=== PATIENT | female | born 1960 | race Caucasian/White ===

== ENCOUNTER 2017-04-10 00:16 | Emergency (ER) | payer OTHER ==
[2017-04-10] MEDS ORDERED: Ondansetron 4 MG/2 ML SDV IVPUSH ONE (00:37)
[2017-04-10] MEDS ORDERED: Famotidine 20 MG/2 ML SDV IVPUSH ONE (00:37)
[2017-04-10] MEDS ORDERED: Lactated Ringers 1,000 ML IV ONE (00:37)
[2017-04-10] MEDS ORDERED: Sodium Chloride 0.9% 10 ML Syringe FLUSH PRN (00:37)
--- NOTE | 2017-04-10 00:37 | EDM.PDOC ---
ED HPI GENERAL MEDICAL PROBLEM - General Chief Complaint: General Stated Complaint: LLQ pain Time Seen by Provider: 04/10/17 00:30 Source of Information: Reports: Patient, Family (), Old Records ([facility] chart/EMR) History Limitations: Reports: No Limitations - History of Present Illness INITIAL COMMENTS - FREE TEXT/NARRATIVE: The patient was brought to the emergency room via private automobile for evaluation of severe left-sided colic type tenderness particularly in the CVA area radiating to the left lower quadrant typical of her previous attacks. She rates her discomfort at 10/10 with some additional nausea without emesis since onset of her symptoms at about 21:30 hours this evening. She has had some mild urinary frequency and dysuria, however no gross hematuria. The patient did take 400 mg of ibuprofen at 23:00 hours. No recent history of other abdominal pain, heartburn, diarrhea, melena, gross hematochezia, or any food intolerance, including fatty foods, etc. with normal bowel movement yesterday. The patient denies any chest pain/pressure, heart flutter, dizziness, orthostasis, orthopnea , diaphoresis, paresthesias, recent decreased exercise tolerance, or any other anginal-type symptoms. The patient also denies any recent fever, cough, wheezing , dyspnea, etc.. Onset: Today, Sudden Onset Date: 04/09/17 Onset Time: 21:30 Duration: Colic, Constant, Getting Worse Location: Reports: Abdomen, Back, Radiates to (As above). Denies: Head, Neck, Chest, Upper Extremity, Left, Upper Extremity, Right, Lower Extremity, Left, Lower Extremity, Right Quality: Reports: Same as Previous Episode, Sharp, Stabbing Severity: Severe Improves with: Reports: None Worsens with: Reports: None Context: Reports: Other (As above) Associated Symptoms: Reports: Nausea/Vomiting. Denies: Confusion, Chest Pain, Cough, cough w sputum, Diaphoresis, Fever/Chills, Malaise, Rash, Seizure, Shortness of Breath, Syncope Treatments MAJOR GENERAL: Reports: NSAIDS Left Lower Abdominal Pain Score (Numeric/FACES): 10 - Related Data Allergies Allergy/AdvReac Type Severity Reaction Status Date / Time acetaminophen Allergy Cannot Verified 04/10/17 00:28 [From Tylenol Sinus Remember Congestion Pain] chlorpheniramine Allergy Cannot Verified 04/10/17 00:28 [From Tylenol Sinus Remember Congestion Pain] codeine Allergy Itching Verified 12/23/15 10:59 dextrose [From Metamucil] Allergy Difficulty Verified 12/27/15 08:26 Breathing, swelling around eyes diphenhydramine HCl Allergy Hyperactivi Verified 12/27/15 08:26 [From Benadryl] ty estrogens, conjugated Allergy Hives Verified 12/27/15 08:26 [From Premarin] estropipate [From Ogen 2.5] Allergy Hives Verified 12/27/15 08:26 guaifenesin Allergy Cannot Verified 04/10/17 00:28 [From Tylenol Sinus Remember Congestion Pain] hydrochlorothiazide Allergy tongue Verified 12/27/15 08:26 swelling hydrocodone Allergy Headache Verified 12/23/15 10:59 influenza virus vaccine, Allergy rash, Verified 12/27/15 08:26 specific difficulty [Influenza Virus breathing Vacc,Specific] loratadine [From Claritin] Allergy Other Verified 12/23/15 10:59 morphine Allergy Confusion, Verified 12/27/15 08:26 itching, difficulty breathing oxycodone Allergy Cannot Verified 04/10/17 00:28 Remember phenylephrine Allergy Cannot Verified 04/10/17 00:28 [From Tylenol Sinus Remember Congestion Pain] psyllium husk Allergy swelling Verified 12/27/15 08:26 [From Metamucil] around eyes, difficulty breathing psyllium seed Allergy swelling Verified 12/27/15 08:26 [From Metamucil] around eyes, dfiiculty breathing sucrose [From Metamucil] Allergy swelling Verified 12/27/15 08:26 around eyes, difficulty breathing temazepam [Temazepam] Allergy Hyperactivi Verified 12/27/15 08:26 ty tramadol HCl [From Ultram] Allergy Confusion Verified 12/23/15 10:59 vitamin E (d-alpha Allergy Difficulty Verified 12/27/15 08:26 tocopherol) Breathing [vitamin E] bandaids Allergy Rash Uncoded 08/14/14 10:15 Home Meds: Home Meds Cholecalciferol (Vitamin D3) [Vitamin D3] 5,000 unit PO DAILY 08/14/14 [History] Hydroxychloroquine [Plaquenil] 400 mg PO DAILY 08/14/14 [History] LORazepam [Ativan] 0.5 mg PO DAILY PRN 08/14/14 [History] LORazepam [Ativan] 2 mg PO BEDTIME 08/14/14 [History] Lactobacillus Combo No.10 [Probiotic] 1 cap PO DAILY 08/14/14 [History] Lisinopril [Prinivil] 20 mg PO BID 08/14/14 [History] Metoprolol Tartrate [Lopressor] 50 mg PO BID 08/14/14 [History] Nortriptyline HCl 40 mg PO BEDTIME 08/14/14 [History] Omeprazole 20 mg PO DAILY 08/14/14 [History] amLODIPine Besylate [Amlodipine Besylate] 5 mg PO BID 08/14/14 [History] traZODone HCl [Trazodone HCl] 50 mg PO BEDTIME 08/14/14 [History] Hydroxychloroquine [Plaquenil] 200 mg PO BEDTIME 04/10/17 [History] Pentazocine HCl/Naloxone HCl [Pentazocine-Naloxone Tablet] 1 each PO Q4H PRN [History] Past Medical History HEENT History: Reports: Impaired Vision, Sinusitis, Other (See Below). Denies: Allergic Rhinitis, Cataract, Glaucoma, Hard of Hearing, Macular Degeneration, Retinal Detachment Other HEENT History: Chronic intermittent sinusitis, patient wears glasses Cardiovascular History: Reports: Hypertension, Other (See Below). Denies: Afib , Aneurysm, Arrhythmia, Blood Clots/VTE/DVT, CAD, Heart Failure, Heart Murmur, High Cholesterol, IA, PVD, Syncope Other Cardiovascular History: Hypertension with probable mild borderline hypertensive cardiomegaly by x-ray, history of fatty liver with patient unaware of her cholesterol status Respiratory History: Reports: Bronchitis, Recurrent, Intubation, Previous, Pneumonia, Recurrent, Pulmonary Fibrosis, Other (See Below). Denies: Asthma, COPD, Intubation, Difficult, PE, Pneumothorax, Sleep Apnea, TB Other Respiratory History: Pulmonary fibrosis by chest x-ray, benign right lower lobe pulmonary nodule diagnosed on 07/21/09 with multiple negative follow- up CT scans as below Gastrointestinal History: Reports: Cholelithiasis, Gastritis, GERD, Hemorrhoids , Hiatal Hernia, PUD, Other (See Below). Denies: Celiac Disease, Chronic Constipation, Chronic Diarrhea, Colon Polyp, Diverticulosis, Fecal Incontinence , GI Bleed, Hepatitis, Inflammatory Bowel Disease, Irritable Bowel Syndrome, Jaundice, Pancreatitis Other Gastrointestinal History: Gastric ulcer in her 20s Genitourinary History: Reports: Renal Calculus, UTI, Recurrent, Other (See Below ). Denies: Acute Renal Failure, Chronic Renal Insuffiency, Dialysis, STD, Urinary Incontinence Other Genitourinary History: History of recurrent urolithiasis with bilateral nephrolithiasis by CT scans with initial episode in 2003, last colic attack secondary to 3 mm right-sided urolithiasis with mild hydronephrosis on 08/14/14 [employer] History: Reports: Dysfunctional Uterine Bleeding, Endometriosis, Fibroids , , Spontaneous : 3 Para: 2 (SAB during first trimester not requiring any procedures, otherwiseFull term without complications during pregnancies or deliveries) LMP (Approximate): Menopausal (Surgical menopause as below) Musculoskeletal History: Reports: Arthritis, Back Pain, Chronic, Neck Pain, Chronic, Osteoarthritis, Other (See Below). Denies: Amputation, Fracture, Gout , RA, SLE Other Musculoskeletal History: Sjogren's syndrome, right foot fracture in about 2003 Neurological History: Reports: Headaches, Chronic, Migraines. Denies: Cerebral Aneurysms, Concussion, CVA, Head Trauma, MS, Neuropathy, Peripheral, Parkinson's , Reflex Sympathetic Dystrophy, Seizure, TIA Psychiatric History: Reports: Anxiety, Depression. Denies: Abuse, Victim of, ADD, ADHD, Addiction, Psych Hospitalization(s), PTSD, Suicide Attempt, Suicidal Ideation Endocrine/Metabolic History: Reports: Multinodular Thyroid, Other (See Below). Denies: Diabetes, Type I, Diabetes, Type II, Hypothyroidism, IDDM Other Endocrine/Metabolic History: bilateral thyroid nodules Hematologic History: Reports: None. Denies: Anemia, Blood Transfusion(s), Iron Deficiency Immunologic History: Reports: Other (See Below). Denies: AIDS, HIV, Immunosuppression, SLE Other Immunologic History: Sjogren's syndrome Oncologic (Cancer) History: Denies: Basal Cell Carcinoma, Cervix, Hodgkin's Lymphoma, Leukemia, Lymphoma, Malignant Melanoma, Non-Hodgkin's Lymphoma, Ovarian, Squamous Cell Carcinoma, Uterine Dermatologic History: Reports: Angiodema, Other (See Below). Denies: Eczema, Psoriasis Other Dermatologic History: Neck denies skin, history of chronic intermittent idiopathic angioedema - Infectious Disease History Infectious Disease History: Reports: None. Denies: C-Difficile, Chicken Pox, Helicobacter Pylori, Measles, Meningitis, Mononucleosis, MRSA, Mumps, Pertussis (Whooping Cough), Rheumatic Fever, RSV, Rubella, Scarlet Fever, Shingles, TB, VRE - Past Surgical History Head Surgeries/Procedures: Reports: None HEENT Surgical History: Reports: Oral Surgery, Other (See Below). Denies: Adenoidectomy, Cataract Surgery, Eye Surgery, Laser Surgery, LASIK, Myringotomy w Tube(s), Naso-Sinus Surgery, Tonsillectomy Other HEENT Surgeries/Procedures: [place] teeth extraction 4 in her 30s Cardiovascular Surgical History: Reports: None. Denies: Varicose Respiratory Surgical History: Reports: None. Denies: Lung Biopsies, Thoracentesis GI Surgical History: Reports: Appendectomy, Colonoscopy, EGD, Other (See Below) . Denies: Cholecystectomy, Hernia, Abdominal, Hernia, Inguinal, Hernia Repair/ Other, Polypectomy Other GI Surgeries/Procedures: Concomitant appendectomy with her hysterectomy as below in 1997, EGD in her 20s, last colonoscopy on 10/05/10 with previous evaluation on 08/01/06, laparoscopic abdominal exploratory procedure on 04/10/04 Female Surgical History: Reports: Breast Biopsy, Cystoscopy, Hysterectomy, Salpingo-Oophorectomy, Tubal Ligation, Other (See Below). Denies: Section, Cervical Conization, D&C, Kidney stone extraction, LEEP, Lithotripsy/ ESWL Other Female Surgeries/Procedures: Excision of benign milk ducts/papilloma from the left breast in her 30s, complete hysterectomy with bilateral salpingo- oophorectomy in 1997 secondary to uterine fibroids and dysfunctional uterine bleeding, bilateral tubal ligation in 1983, cystoscopy with basket procedure with no stones found on 11/22/03 Endocrine Surgical History: Reports: None. Denies: Thyroid Biopsy Neurological Surgical History: Reports: None. Denies: C-Spine, Laminectomy, Lumbar Spine, Sacral Spine, Vertebroplasty Musculoskeletal Surgical History: Reports: None. Denies: Arthroscopic Knee, Arthroscopic Procedure, Carpal Tunnel, Ganglion Cyst, Joint Replacement, ORIF, Shoulder Surgery Oncologic Surgical History: Reports: None Dermatological Surgical History: Reports: Other (See Below) Other Dermatological Surgeries/Procedures: Excision of benign venous thrombus from the right cervical region at about age 9 - Past Imaging History Past Imaging History: Reports: CAT Scan (Multiple CTs of the chest both with and without IV contrast with last evaluation with IV contrast on 09/28/13 and initial evaluation on 07/21/09, last CT scan of the abdomen and pelvis with IV contrast on 08/14/[address] scan of the abdomen and pelvis on 08/30/06 , CT of the sinuses on 03/31/12, CT of the neck with soft tissue procedure and concomitant maxillofacial CT scan on 06/28/10), Mammogram (Last mammogram on 10/08), Stress Testing (Negative Cardiolite stress test on 10/25/06 with ejection fraction of 59%), Ultrasound (Thyroid ultrasound on 03/23/13 and 10/06/12, right thigh soft tissue ultrasound on 07/10/11, right upper quadrant abdominal ultrasound on 07/14/09, abdominal ultrasound on 08/26/06), Upper GI X-Ray/Series ( Including small bowel series on 08/26/06) Social & Family History - Family History HEENT: Reports: Macular Degeneration, Other (See Below) Other HEENT Family History: Maternal grandmother with macular degeneration Cardiac: Reports: Bypass, CAD, High Cholesterol, Hypertension, IA, Other (See Below) Other Cardiac Family History: Father with history of IA in his 60s with CABG 4 , hypertension in mother, sister, and maternal grandmother, paternal uncles 6 with MIs and CABGs in her 60s, father and paternal uncles of hyperlipidemia as above Respiratory: Reports: COPD, Other (See Below) Other Respiratory Family Hisory: Paternal aunts 6 with COPD Musculoskeletal: Reports: SLE, Other (See Below) Other Musculoskeletal Family History: Sister with SLE Endocrine/Metabolic: Reports: Diabetes, Type I, Diabetes, type II, Hyperthyroidism, Hypothyroidism, IDDM, Other (See Below) Other Endocrine/Metabolic Family History: Sister with juvenile IDDM, father with hyperthyroidism, maternal grandmother with hypothyroidism and goiter, paternal aunt 1 with IDDM, 2 other paternal aunts with AODM Oncologic: Reports: Colon, Other (See Below) Other Oncologic Family History: Mother with history of colon cancer at age 50, father with fatal small cell lung cancer at age 63 with history of tobacco use and history of asbestos exposure - Tobacco Use Smoking Status *Q: Never Smoker Smoking Cessation Information Provided To Patient: No Second Hand Smoke Exposure: No Second Hand Smoke Education Provided: No - Caffeine Use Caffeine Use: Reports: Soda (1 soda per week and). Denies: Coffee, Energy Drinks, Tea - Alcohol Use Alcohol Use History: Yes Days Per Week of Alcohol Use: 0 (No previous DWIs, problems with alcohol abuse, etc.) Number of Drinks Per Day: 2 (Usually only about 3 times per year) Total Drinks Per Week: 0 Alcohol Use in Last Twelve Months: Yes Alcohol Use Frequency: Socially - Recreational Drug Use Recreational Drug Use: No Drug Use in Last 12 Months: No Recreational Drug Type: Denies: Amphetamines (Speed), Cocaine, Heroin, Inhalants (Glues, Solvents, Aerosols), LSD (Acid), Marijuana/Hashish, Methamphetamine - Living Situation & Occupation Living situation: Reports: (1979, 2 children), with Family (With ) 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 Denies: Fever, Chills, Weakness, Fatigue , Night Sweats, Diaphoresis, Weight Loss HEENT: Reports: Glasses. Denies: Dental Pain, Ear Pain, Eye Pain, Rhinitis, Throat Pain, Vertigo, Vision Change Respiratory: Reports: No Symptoms. Denies: Shortness of Breath, Wheezing, Pleuritic Chest Pain, Cough Cardiovascular: Reports: No Symptoms. Denies: Chest Pain, Blood Pressure Problem, Dyspnea on Exertion, Edema, Lightheadedness, Orthopnea, Palpitations, Syncope Endocrine: Reports: No Symptoms. Denies: Fatigue GI/Abdominal: Reports: Abdominal Pain, Nausea. Denies: Anorexia, Black Stool, Bloody Stool, Constipation, Diarrhea, Decreased Appetite, Difficulty Swallowing , Distension, Flatus, Hematemesis, Hematochezia, Melena, Mucous in Stool, Stool Incontinence, Vomiting : Reports: Dysuria, Flank Pain, Frequency, Urgency. Denies: Hematuria, Incontinence, Pain, Urinary Retention Musculoskeletal: Reports: No Symptoms. Denies: Neck Pain, Shoulder Pain, Arm Pain, Back Pain (Other than CVA region), Hand Pain, Leg Pain Skin: Reports: No Symptoms. Denies: Jaundice, Pallor, Diaphoresis, Wound Neurological: Reports: No Symptoms. Denies: Confusion, Dizziness, Headache, Numbness, Paresthesia, Seizure, Tingling, Weakness Psychiatric: Reports: No Symptoms. Denies: Agitation, Anxiety, Confusion, Depression, Hallucinations, Suicidal Ideation Hematologic/Lymphatic: Reports: No Symptoms Immunologic: Reports: No Symptoms ED EXAM, GENERAL - Physical Exam Exam: See Below Exam Limited By: No Limitations General Appearance: Alert, WD/WN, Anxious, Mild Distress (Secondary to colic) Eye Exam: Bilateral Eye: EOMI, Normal Inspection (No nystagmus), PERRL Ears: Normal External Exam, Normal Canal, Hearing Grossly Normal, Normal TMs Nose: Normal Inspection, Normal Mucosa, No Blood Throat/Mouth: Normal Inspection, Normal Lips, Normal Teeth, Normal Gums, Normal Oropharynx, Normal Voice, No Airway Compromise. No: Dysphagia, Perioral Cyanosis Head: Atraumatic, Normocephalic. No: Facial Swelling, Facial Tenderness, Sinus Tenderness Neck: Normal Inspection, Supple, Non-Tender, Full Range of Motion. No: Lymphadenopathy (L), Lymphadenopathy (R), Thyromegaly Respiratory/Chest: No Respiratory Distress, Lungs Clear, Normal Breath Sounds, No Accessory Muscle Use, Chest Non-Tender. No: Stridor, Retractions Cardiovascular: Normal Peripheral Pulses, Regular Rate, Rhythm, No Edema, No Gallop, No JVD, No Murmur, No Rub. No: Gallop/S3, Gallop/S4, Friction Rub Peripheral Pulses: 2+: Radial (L), Radial (R), Dorsalis Pedis (L), Dorsalis Pedis (R) GI/Abdominal: Normal Bowel Sounds, No Organomegaly, No Distention, No Abnormal Bruit, No Mass, Pelvis Stable, Tender (Mild left CVA), Other (Obese). No: Guarding, Rebound (Female) Exam: Deferred Rectal (Female) Exam: Deferred Back Exam: Full Range of Motion, CVA Tenderness (L) (Borderline as above). No: CVA Tenderness (R), Muscle Spasm Extremities: Normal Inspection, Normal Range of Motion, Non-Tender, No Pedal Edema, Normal Capillary Refill. No: Ignacio's Sign Neurological: Alert, Oriented, CN II-XII Intact, Normal Cognition, Normal Gait, Normal Reflexes (Negative Babinski's), No Motor/Sensory Deficits Psychiatric: Normal Affect, Normal Mood Skin Exam: Warm, Dry, Intact, Normal Color, No Rash. No: Diaphoretic, Wound/ Incision Course - Vital Signs Last Recorded V/S: Last Vital Signs Temp 36.5 C 04/10/17 01:14 Pulse 90 04/10/17 01:45 Resp 16 04/10/17 01:45 BP 118/72 04/10/17 01:45 Pulse Ox 94 L 04/10/17 01:45 Vital Signs - 24 hr 04/10/17 04/10/17 04/10/17 00:17 01:14 01:45 Temperature [ 36.5 C 36.5 C Oral] Pulse, 92 88 90 Peripheral [ Right Pulse Oximetry] Respiratory 20 20 16 Rate Blood Pressure 137/91 H 122/78 118/72 [Left Upper Arm ] O2 Sat by Pulse 100 95 94 L Oximetry - Orders/Labs/Meds Orders: Active Orders 24 hr Category Date Time Status Peripheral IV Care [RC] . DIRECTED Care 04/10/17 00:37 Active Nothing Per Oral Diet [DIET] Diet 04/10/17 Breakfast Active Abdomen Pelvis wo Cont [CT] Stat Exams 04/10/17 00:43 Ordered CULTURE URINE [RM] Stat Lab 04/10/17 00:37 Uncollected Sodium Chloride 0.9% [Saline Flush] Med 04/10/17 00:37 Active 10 ml FLUSH ASDIRECTED PRN Obtain Past Medical Record [OM.PC] Urgent Oth 04/10/17 00:37 Active Peripheral IV Insertion Adult [OM.PC] Stat Oth 04/10/17 00:37 Ordered Resuscitation Status Stat Resus Stat 04/10/17 00:37 Ordered Medication Orders Sodium Chloride (Saline Flush) 10 ml FLUSH ASDIRECTED PRN PRN Reason: Keep Vein Open Labs: Laboratory Tests 04/10/17 04/10/17 04/10/17 Range/Units 00:50 00:55 00:55 WBC 9.9 (4.0-10.2) K/uL RBC 4.42 (3.77-5.09) M/uL Hgb 13.6 (11.7-15.5) g/dL Hct 39.8 (34.0-46.0) % MCV 90.0 D (84.0-98.0) fL MCH 30.8 (28.2-33.3) pg MCHC 34.2 (31.7-36.0) g/dL RDW 12.3 (11.2-14.1) % Plt Count 229 (150-350) K/uL Neut % (Auto) 77.0 (45.0-80.0) % Lymph % (Auto) 13.2 (10.0-50.0) % [place] % (Auto) 7.6 (2.0-14.0) % Eos % (Auto) 1.7 (0.0-5.0) % Baso % (Auto) 0.5 (0.0-2.0) % Neut # (Auto) 7.65 H (1.40-7.00) K/uL Lymph # (Auto) 1.31 (0.50-3.50) K/uL [place] # (Auto) 0.75 (0.00-1.00) K/uL Eos # (Auto) 0.17 (0.00-0.50) K/uL Baso # (Auto) 0.05 (0.00-0.20) K/uL PT (9.8-11.7) SEC INR APTT (23.5-30.0) SEC Sodium (136-145) mmol/L Potassium (3.5-5.1) mmol/L Chloride (98-107) mmol/L Carbon Dioxide (21.0-32.0) mmol/L BUN (7-18) mg/dL Creatinine (0.51-1.17) mg/dL Est Cr Clr Drug Dosing Estimated GFR (MDRD) mL/min Glucose (74-106) mg/dL Lactic Acid (0.4-2.0) mmol/L Uric Acid (2.6-7.2) mg/dL Calcium (8.5-10.1) mg/dL Magnesium (1.8-2.4) mg/dL Total Bilirubin (0.2-1.0) mg/dL AST (15-37) U/L ALT (12-78) U/L Alkaline Phosphatase (46-116) IU/L Total Protein (6.4-8.2) g/dL Albumin (3.4-5.0) g/dL Amylase 42 (25-115) U/L Lipase (73-393) U/L Specimen Type Urincc Urine Color Yellow Urine Appearance Clear Urine pH 5.5 (5.0-9.0) Ur Specific [place] >= 1.030 (1.005-1.030) Urine Protein Negative (NEGATIVE) mg/dL Urine Glucose (UA) Negative (NEGATIVE) mg/dL Urine Ketones Negative (NEGATIVE) mg/dL Urine Occult Blood Moderate H (NEGATIVE) Urine Nitrite Negative (NEGATIVE) Urine Bilirubin Negative (NEGATIVE) Urine Urobilinogen 0.2 (0.2-1.0) E.U./dL Ur Leukocyte Esterase Trace H (NEGATIVE) Urine RBC 40-50 H /HPF Urine WBC 0-5 /HPF Ur Epithelial Cells Few /LPF Urine Bacteria Few (NONE TO FEW) /HPF 04/10/17 04/10/17 04/10/17 Range/Units 00:55 00:55 00:55 WBC (4.0-10.2) K/uL RBC (3.77-5.09) M/uL Hgb (11.7-15.5) g/dL Hct (34.0-46.0) % MCV (84.0-98.0) fL MCH (28.2-33.3) pg MCHC (31.7-36.0) g/dL RDW (11.2-14.1) % Plt Count (150-350) K/uL Neut % (Auto) (45.0-80.0) % Lymph % (Auto) (10.0-50.0) % [place] % (Auto) (2.0-14.0) % Eos % (Auto) (0.0-5.0) % Baso % (Auto) (0.0-2.0) % Neut # (Auto) (1.40-7.00) K/uL Lymph # (Auto) (0.50-3.50) K/uL [place] # (Auto) (0.00-1.00) K/uL Eos # (Auto) (0.00-0.50) K/uL Baso # (Auto) (0.00-0.20) K/uL PT 10.6 (9.8-11.7) SEC INR 1.0 APTT 22.6 L (23.5-30.0) SEC Sodium 137 (136-145) mmol/L Potassium 3.8 (3.5-5.1) mmol/L Chloride 100 (98-107) mmol/L Carbon Dioxide 28.9 (21.0-32.0) mmol/L BUN 22 H (7-18) mg/dL Creatinine 1.30 H (0.51-1.17) mg/dL Est Cr Clr Drug Dosing TNP Estimated GFR (MDRD) 42 mL/min Glucose 123 H (74-106) mg/dL Lactic Acid 0.8 (0.4-2.0) mmol/L Uric Acid 5.6 (2.6-7.2) mg/dL Calcium 9.3 (8.5-10.1) mg/dL Magnesium 1.5 L (1.8-2.4) mg/dL Total Bilirubin 0.4 (0.2-1.0) mg/dL AST 24 (15-37) U/L ALT 32 (12-78) U/L Alkaline Phosphatase 77 (46-116) IU/L Total Protein 7.2 (6.4-8.2) g/dL Albumin 4.1 (3.4-5.0) g/dL Amylase (25-115) U/L Lipase 133 (73-393) U/L Specimen Type Urine Color Urine Appearance Urine pH (5.0-9.0) Ur Specific [place] (1.005-1.030) Urine Protein (NEGATIVE) mg/dL Urine Glucose (UA) (NEGATIVE) mg/dL Urine Ketones (NEGATIVE) mg/dL Urine Occult Blood (NEGATIVE) Urine Nitrite (NEGATIVE) Urine Bilirubin (NEGATIVE) Urine Urobilinogen (0.2-1.0) E.U./dL Ur Leukocyte Esterase (NEGATIVE) Urine RBC /HPF Urine WBC /HPF Ur Epithelial Cells /LPF Urine Bacteria (NONE TO FEW) /HPF Urine specimen set up for culture and sensitivity Meds: Medications Generic Name Dose Route Start Last Admin Trade Name Freq PRN Reason Stop Dose Admin Sodium Chloride 10 ml 04/10/17 00:37 Saline Flush FLUSH ASDIRECTED PRN Keep Vein Open Discontinued Medications Generic Name Dose Route Start Last Admin Trade Name Freq PRN Reason Stop Dose Admin Famotidine 40 mg 04/10/17 00:37 04/10/17 00:59 Pepcid IVPUSH 04/10/17 00:38 40 mg ONETIME ONE Administration Hydromorphone HCl 1 mg 04/10/17 00:40 04/10/17 00:53 Dilaudid IVPUSH 04/10/17 00:41 1 mg ONETIME ONE Administration Lactated Ringer's 1,000 mls @ 999 mls/hr 04/10/17 00:37 04/10/17 00:48 Ringers, Lactated IV 04/10/17 01:37 999 mls/hr .BOLUS ONE Administration Ketorolac Tromethamine 15 mg 04/10/17 00:40 04/10/17 00:46 Toradol IVPUSH 04/10/17 00:41 15 mg ONETIME ONE Administration Ondansetron HCl 4 mg 04/10/17 00:37 04/10/17 00:52 Zofran IVPUSH 04/10/17 00:38 4 mg ONETIME ONE Administration Tamsulosin HCl 0.4 mg 04/10/17 00:40 04/10/17 00:46 Flomax PO 04/10/17 00:41 0.4 mg ONETIME ONE Administration - Radiology Interpretation Free Text/Narrative:: Telephone consultation at 01:28 hours with the radiology department at [facility] with preliminary verbal report of CT scan of the abdomen and pelvis without contrast using stone protocol. Relatively stable moderate bilateral nephrolithiasis in the renal pelvis with 5.2 mm in diameter calcification just below the right renal pelvis with some mild to moderate secondary hydronephrosis. Additional 5 mm in diameter calcification in the distal UVJ with secondary moderate to severe hydronephrosis CT Results Date: 04/10/17 CT Results Time: 01:28 Departure - Departure Time of Disposition: 02:15 Disposition: Home, Self-Care 01 Condition: Good Clinical Impression: Urolithiasis, Nephrolithiasis, Hypertension, Renal insufficiency, Hypomagnesemia, Peptic reflux disease, Fatty liver, Osteoarthritis, Sjogrens syndrome - Discharge Information Instructions: Kidney Stones, [id number], Renal Colic, [id number] Referrals: Sheets-Elena Cohen MD [Primary Care Provider] - Forms: ED Department Discharge, Return to Work/School Form Additional Instructions: 1. Followup with your regular provider in 7 days as directed for reevaluation and recommended CBC, basic metabolic panel, magnesium level, lipid panel, and glycosylated hemoglobin. Schedule mammogram and yearly exam JONNA at that time 2. Tylenol 650 mg by mouth every 4 hours and/or OTC ibuprofen 2-3 tabs by mouth every 6 hours with food as directed./needed. Next dose of ibuprofen in the next 5 hours secondary to medications given in the emergency room 3. Urine tests should be repeated at follow up visit with possible repeat urine culture,etc. at that time. Today's urine culture is pending with results in about 2-3 days. We will call you, if we need to change your therapy. 4. Strain all urine and bring stone to your regular provider or this facility as directed for further stone analysis. 5. Consider referral to qa tester secondary to bilateral nephrolithiasis and current hypomagnesemia - Problem List & Annotations (1) Urolithiasis SNOMED Code(s): 050007684, 247327513 Code(s): N20.9 - URINARY CALCULUS, UNSPECIFIED Status: Acute Priority: High Current Visit: Yes Onset Date: 04/09/17 Annotation/Comment:: Acute left-sided colic attack today with patient about ready to pass her stone with CT scan results as above. Continue to strain urine with stone analysis as per discharge instructions. Note threatening possible additional right-sided hydronephrosis by CT scan, however asymptomatic at this time. Consider renal ultrasound at follow-up depending on her clinical course with nephrology referral also advisable. Patient is symptom-free at time of discharge. Work excuse completed after patient left facility, which she may pick up man later Qualifiers: Urinary calculus location: lower urinary tract Qualified Code(s): N21.9 - Calculus of lower urinary tract, unspecified; N21 - Calculus of lower urinary tract (2) Nephrolithiasis SNOMED Code(s): 45585169 Code(s): N20.0 - CALCULUS OF KIDNEY Status: Chronic Priority: High Current Visit: Yes Annotation/Comment:: Chronic bilateral nephrolithiasis with current acute colic today as above (3) Renal insufficiency SNOMED Code(s): 632759447, 596287540 Code(s): N28.9 - DISORDER OF KIDNEY AND URETER, UNSPECIFIED Status: Acute Priority: Medium Current Visit: Yes Onset Date: 04/10/17 Annotation/ Comment:: Mild newly diagnosed renal insufficiency. Close follow-up by regular provider (4) Fatty liver SNOMED Code(s): 081758262 Code(s): K76.0 - FATTY (CHANGE OF) LIVER, NOT ELSEWHERE CLASSIFIED Status: Chronic Priority: Medium Current Visit: Yes Annotation/Comment:: History of fatty liver both by ultrasound and CT scans. Patient does not know her cholesterol status with lipid panel JONNA advised as per discharge instructions. Strict compliance with low-fat, low-cholesterol diet also encouraged (5) Hypertension SNOMED Code(s): 68643577 Code(s): I10 - ESSENTIAL (PRIMARY) HYPERTENSION Status: Chronic Priority : Medium Current Visit: Yes Annotation/Comment:: Stable in the emergency room and by history Qualifiers: Hypertension type: essential hypertension Qualified Code(s): I10 - Essential (primary) hypertension (6) Hypomagnesemia SNOMED Code(s): 166965457 Code(s): E83.42 - HYPOMAGNESEMIA Status: Acute Priority: Medium Current Visit: Yes Onset Date: 04/10/17 Annotation/Comment:: Delay magnesium supplementation for now secondary to her recurrent urolithiasis. Close follow-up by her regular providers with stone evaluation, nephrology consultation, etc. advisable (7) Osteoarthritis SNOMED Code(s): 992444483 Code(s): M19.90 - UNSPECIFIED OSTEOARTHRITIS, UNSPECIFIED SITE Status: Chronic Priority: Medium Current Visit: Yes Annotation/Comment:: Stable by history Qualifiers: Osteoarthritis location: multiple joints Osteoarthritis type: primary Qualified Code(s): M15.0 - Primary generalized (osteo)arthritis (8) Peptic reflux disease SNOMED Code(s): 26229445 Code(s): K21.9 - GASTRO-ESOPHAGEAL REFLUX DISEASE WITHOUT ESOPHAGITIS Status: Chronic Priority: Medium Current Visit: Yes Annotation/Comment:: Stable by history with high-dose IV Pepcid given in the emergency room secondary to medications (9) Sjogrens syndrome SNOMED Code(s): 64717078 Code(s): M35.00 - SICCA SYNDROME, UNSPECIFIED Status: Chronic Priority: Medium Current Visit: Yes Annotation/Comment:: Stable by history Qualifiers: Sjogren's organ involvement: unspecified organ involvement Qualified Code(s ): M35.00 - Sicca syndrome, unspecified - Problem List Review Problem List Initiated/Reviewed/Updated: Yes - My Orders Last 24 Hours: My Active Orders 04/10/17 00:37 Peripheral IV Care [RC] . DIRECTED CULTURE URINE [RM] Stat Sodium Chloride 0.9% [Saline Flush] 10 ml FLUSH ASDIRECTED PRN Obtain Past Medical Record [OM.PC] Urgent Peripheral IV Insertion Adult [OM.PC] Stat Resuscitation Status Stat 04/10/17 00:43 Abdomen Pelvis wo Cont [CT] Stat 04/10/17 Breakfast Nothing Per Oral Diet [DIET] - Assessment/Plan Last 24 Hours: My Active Orders 04/10/17 00:37 Peripheral IV Care [RC] . DIRECTED CULTURE URINE [RM] Stat Sodium Chloride 0.9% [Saline Flush] 10 ml FLUSH ASDIRECTED PRN Obtain Past Medical Record [OM.PC] Urgent Peripheral IV Insertion Adult [OM.PC] Stat Resuscitation Status Stat 04/10/17 00:43 Abdomen Pelvis wo Cont [CT] Stat 04/10/17 Breakfast Nothing Per Oral Diet [DIET] Assessment:: As above Plan: As above. Extensive precautions were given to the patient and her , who are in agreement with the treatment plan. See Patient Instructions for further treatment and plan.
[2017-04-10] MEDS ORDERED: Tamsulosin 0.4 MG Cap.ER PO ONE (00:40)
[2017-04-10] MEDS ORDERED: Ketorolac 15 MG/ML SDV IVPUSH ONE (00:40)
[2017-04-10] MEDS ORDERED: HYDROmorphone 1 MG/ML Syringe IVPUSH ONE (00:40)
[2017-04-10 01:19] LABS: CHLORIDE,CL 100 mmol/L (98-107); SODIUM,NA 137 mmol/L (136-145)
[2017-04-10 01:46] VITALS: BP 118/72
== END 2017-04-10 02:15 | disposition home or self-care (01) ==
LOC: LL.ED 00:16
DX: N13.2 Hydronephrosis with renal and ureteral calculous obstruction (principal); N20.9 Urinary calculus, unspecified; I13.0 Hypertensive heart and chronic kidney disease with heart failure and stage 1 through stage 4 chronic kidney disease, or unspecified chronic kidney disease; N18.9 Chronic kidney disease, unspecified; I50.9 Heart failure, unspecified; K21.9 Gastro-esophageal reflux disease without esophagitis; M19.90 Unspecified osteoarthritis, unspecified site; E83.42 Hypomagnesemia; K76.0 Fatty (change of) liver, not elsewhere classified; M35.00 Sjogren syndrome, unspecified; G43.909 Migraine, unspecified, not intractable, without status migrainosus; Z98.890 Other specified postprocedural states; Z79.899 Other long term (current) drug therapy; Z88.8 Allergy status to other drugs, medicaments and biological substances; Z88.6 Allergy status to analgesic agent; Z88.5 Allergy status to narcotic agent
CPT/HCPCS: 36415; 74176; 80053; 81001; 82150; 83605; 83690; 83735; 84550; 85025; 85610; 85730; 87086; 96365; 96375; 99285; A9270; J1170; J1885; J2405; J7120; 99284; S0028

== ENCOUNTER 2017-09-12 02:24 | Inpatient (IN) | payer OTHER ==
--- NOTE | 2017-09-12 02:35 | EDM.PDOC ---
ED HPI GENERAL MEDICAL PROBLEM - General Chief Complaint: Abdominal Pain Stated Complaint: right lower abdominal pain Time Seen by Provider: 09/12/17 02:25 Source of Information: Reports: Patient, Family (), Old Records ([facility] chart/EMR) History Limitations: Reports: No Limitations - History of Present Illness INITIAL COMMENTS - FREE TEXT/NARRATIVE: Patient was brought to the emergency room via private automobile by her for evaluation of 09/29 right CVA colic type pain with radiation to the right inguinal region with symptoms starting at about 20:00 hours this evening. Symptoms are similar to previous colic episodes with last episode on 04/10/17 with spontaneous subsequent passage from this kidney stone. She does have some intermittent nausea with her colic including 2 previous episodes of emesis. She did take 400 mg of ibuprofen, 1 mg of hydromorphone, and 25 mg of hydroxyzine with onset of the above colic. No recent history of other abdominal pain, heartburn, nausea, diarrhea, melena, gross hematochezia, or any food intolerance , including fatty foods, etc..The patient also denies any recent fever, cough, wheezing, dyspnea, etc.. She denies any gross hematuria, or other UTI symptoms Onset: Today, Sudden Onset Date: 09/11/17 Onset Time: 20:00 Duration: Constant Location: Reports: Abdomen, Radiates to (As above). Denies: Head, Face, Neck, Back, Upper Extremity, Left, Upper Extremity, Right Quality: Reports: Same as Previous Episode, Sharp, Stabbing Severity: Severe Improves with: Reports: None Worsens with: Reports: None Context: Reports: Other (As above) Associated Symptoms: Reports: Nausea/Vomiting. 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(s) (As above) RLQ and right flank Pain Score (Numeric/FACES): 12 - Related Data Allergies Allergy/AdvReac Type Severity Reaction Status Date / Time acetaminophen Allergy Cannot Verified 09/12/17 02:32 [From Tylenol Sinus Remember Congestion Pain] chlorpheniramine Allergy Cannot Verified 09/12/17 02:32 [From Tylenol Sinus Remember Congestion Pain] codeine Allergy Itching Verified 09/12/17 02:32 dextrose [From Metamucil] Allergy Difficulty Verified 09/12/17 02:32 Breathing, swelling around eyes diphenhydramine HCl Allergy Hyperactivi Verified 09/12/17 02:32 [From Benadryl] ty estrogens, conjugated Allergy Hives Verified 09/12/17 02:32 [From Premarin] estropipate [From Ogen 2.5] Allergy Hives Verified 09/12/17 02:32 guaifenesin Allergy Cannot Verified 09/12/17 02:32 [From Tylenol Sinus Remember Congestion Pain] hydrochlorothiazide Allergy tongue Verified 09/12/17 02:32 swelling hydrocodone Allergy Headache Verified 09/12/17 02:32 influenza virus vaccine, Allergy rash, Verified 09/12/17 02:32 specific difficulty [Influenza Virus breathing Vacc,Specific] loratadine [From Claritin] Allergy Other Verified 09/12/17 02:32 morphine Allergy Confusion, Verified 09/12/17 02:32 itching, difficulty breathing oxycodone Allergy Cannot Verified 09/12/17 02:32 Remember phenylephrine Allergy Cannot Verified 09/12/17 02:32 [From Tylenol Sinus Remember Congestion Pain] psyllium husk Allergy swelling Verified 09/12/17 02:32 [From Metamucil] around eyes, difficulty breathing psyllium seed Allergy swelling Verified 09/12/17 02:32 [From Metamucil] around eyes, dfiiculty breathing sucrose [From Metamucil] Allergy swelling Verified 09/12/17 02:32 around eyes, difficulty breathing temazepam [Temazepam] Allergy Hyperactivi Verified 09/12/17 02:32 ty tramadol HCl [From Ultram] Allergy Confusion Verified 09/12/17 02:32 vitamin E (d-alpha Allergy Difficulty Verified 09/12/17 02:32 tocopherol) Breathing [vitamin E] bandaids Allergy Rash Uncoded 09/12/17 02:32 Home Meds: Home Meds Cholecalciferol (Vitamin D3) [Vitamin D3] 5,000 unit PO DAILY 08/14/14 [History] Hydroxychloroquine [Plaquenil] 400 mg PO DAILY 08/14/14 [History] LORazepam [Ativan] 0.5 mg PO DAILY PRN 08/14/14 [History] LORazepam [Ativan] 2 mg PO BEDTIME 08/14/14 [History] Lactobacillus Combo No.10 [Probiotic] 1 cap PO DAILY 08/14/14 [History] Metoprolol Tartrate [Lopressor] 50 mg PO BID 08/14/14 [History] Nortriptyline HCl 40 mg PO BEDTIME 08/14/14 [History] Omeprazole 20 mg PO DAILY 08/14/14 [History] amLODIPine Besylate [Amlodipine Besylate] 5 mg PO BID 08/14/14 [History] traZODone HCl [Trazodone HCl] 50 mg PO BEDTIME 08/14/14 [History] Hydroxychloroquine [Plaquenil] 200 mg PO BEDTIME 04/10/17 [History] Pentazocine HCl/Naloxone HCl [Pentazocine-Naloxone Tablet] 1 each PO Q4H PRN [History] HYDROmorphone [Dilaudid] 1 mg PO Q4H PRN 09/12/17 [History] hydrOXYzine Pamoate [Hydroxyzine Pamoate] 25 mg PO Q4H PRN 09/12/17 [History] Past Medical History HEENT History: Reports: Impaired Vision, Sinusitis, Other (See Below). Denies: Allergic Rhinitis, Cataract, Glaucoma, Hard of Hearing, Macular Degeneration, Retinal Detachment Other HEENT History: Chronic intermittent sinusitis, patient wears glasses Cardiovascular History: Reports: Hypertension, Other (See Below). Denies: Afib , Aneurysm, Arrhythmia, Blood Clots/VTE/DVT, CAD, Heart Failure, Heart Murmur, High Cholesterol, IL, PVD, Syncope Other Cardiovascular History: Hypertension with probable mild borderline hypertensive cardiomegaly by x-ray, history of fatty liver with patient unaware of her cholesterol status Respiratory History: Reports: Bronchitis, Recurrent, Intubation, Previous, Pneumonia, Recurrent, Pulmonary Fibrosis, Other (See Below). Denies: Asthma, COPD, Intubation, Difficult, PE, Pneumothorax, Sleep Apnea, TB Other Respiratory History: Pulmonary fibrosis by chest x-ray, benign right lower lobe pulmonary nodule diagnosed on 07/21/09 with multiple negative follow- up CT scans as below Gastrointestinal History: Reports: Cholelithiasis, Gastritis, GERD, Hemorrhoids , Hiatal Hernia, PUD, Other (See Below). Denies: Celiac Disease, Chronic Constipation, Chronic Diarrhea, Colon Polyp, Diverticulosis, Fecal Incontinence , GI Bleed, Hepatitis, Inflammatory Bowel Disease, Irritable Bowel Syndrome, Jaundice, Pancreatitis Other Gastrointestinal History: Gastric ulcer in her 20s Genitourinary History: Reports: Chronic Renal Insuffiency, Hydronephrosis, Renal Calculus, UTI, Recurrent, Other (See Below). 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 Denies: Amputation, Fracture, Gout , RA, SLE Other Musculoskeletal History: Sjogren's syndrome, right foot fracture in about 2003 Neurological History: Reports: Headaches, Chronic, Migraines. Denies: Cerebral Aneurysms, Concussion, CVA, Head Trauma, MS, Neuropathy, Peripheral, Parkinson's , Reflex Sympathetic Dystrophy, Seizure, TIA Psychiatric History: Reports: Anxiety, Depression. Denies: Abuse, Victim of, ADD, ADHD, Addiction, Psych Hospitalization(s), PTSD, Suicide Attempt, Suicidal Ideation Endocrine/Metabolic History: Reports: Multinodular Thyroid, Other (See Below). Denies: Diabetes, Type I, Diabetes, Type II, Hypothyroidism, IDDM Other Endocrine/Metabolic History: bilateral thyroid nodules Hematologic History: Reports: None. Denies: Anemia, Blood Transfusion(s), Iron Deficiency Immunologic History: Reports: Other (See Below). Denies: AIDS, HIV, Immunosuppression, SLE Other Immunologic History: Sjogren's syndrome Oncologic (Cancer) History: Reports: None. Denies: Basal Cell Carcinoma, Cervix , Hodgkin's Lymphoma, Leukemia, Lymphoma, Malignant Melanoma, Non-Hodgkin's Lymphoma, Squamous Cell Carcinoma, Uterine Dermatologic History: Reports: Angiodema, Other (See Below). Denies: Eczema, Psoriasis Other Dermatologic History: history of chronic intermittent idiopathic angioedema - Infectious Disease History Infectious Disease History: Reports: None. Denies: C-Difficile, Chicken Pox, Helicobacter Pylori, Measles, Meningitis, Mononucleosis, MRSA, Mumps, Pertussis (Whooping Cough), Rheumatic Fever, RSV, Rubella, Scarlet Fever, Shingles, TB, VRE - Past Surgical History Head Surgeries/Procedures: Reports: None HEENT Surgical History: Reports: Oral Surgery, Other (See Below). Denies: Adenoidectomy, Cataract Surgery, Eye Surgery, Laser Surgery, LASIK, Myringotomy w Tube(s), Naso-Sinus Surgery, Tonsillectomy Other HEENT Surgeries/Procedures: [place] teeth extraction 4 in her 30s Cardiovascular Surgical History: Reports: None. Denies: Varicose Respiratory Surgical History: Reports: None. Denies: Lung Biopsies, Thoracentesis GI Surgical History: Reports: Appendectomy, Colonoscopy, EGD, Other (See Below) . Denies: Cholecystectomy, Hernia, Abdominal, Hernia, Inguinal, Hernia Repair/ Other, Polypectomy Other GI Surgeries/Procedures: Concomitant appendectomy with her hysterectomy as below in 1997, EGD in her 20s, last colonoscopy on 10/05/10 with previous evaluation on 08/01/06, laparoscopic abdominal exploratory procedure on 04/10/04 Female Surgical History: Reports: Breast Biopsy, Cystoscopy, Hysterectomy, Salpingo-Oophorectomy, Tubal Ligation, Other (See Below). Denies: Section, Cervical Conization, D&C, Kidney stone extraction, LEEP, Lithotripsy/ ESWL Other Female Surgeries/Procedures: Excision of benign milk ducts/papilloma from the left breast in her 30s, complete hysterectomy with bilateral salpingo- oophorectomy in 1997 secondary to uterine fibroids and dysfunctional uterine bleeding, bilateral tubal ligation in 1983, cystoscopy with basket procedure with no stones found on 11/22/03 Endocrine Surgical History: Reports: None. Denies: Thyroid Biopsy Neurological Surgical History: Reports: None. Denies: C-Spine, Laminectomy, Lumbar Spine, Sacral Spine, Vertebroplasty Musculoskeletal Surgical History: Reports: None. Denies: Arthroscopic Knee, Arthroscopic Procedure, Carpal Tunnel, Ganglion Cyst, Joint Replacement, ORIF, Shoulder Surgery Oncologic Surgical History: Reports: None Dermatological Surgical History: Reports: Other (See Below) Other Dermatological Surgeries/Procedures: Excision of benign venous thrombus from the right cervical region at about age 9 - Past Imaging History Past Imaging History: Reports: CAT Scan (Multiple CTs of the chest both with and without IV contrast with last evaluation with IV contrast on 09/28/13 and initial evaluation on 07/21/09, last CT scan of the abdomen and pelvis with IV contrast on 08/14/[address] scan of the abdomen and pelvis on 04/10/17 with previous evaluation on 08/30/06, CT of the sinuses on 03/31/12, CT of the neck with soft tissue procedure and concomitant maxillofacial CT scan on 06/28/10) , Mammogram (Last mammogram on 09/04/17), Stress Testing (Negative Cardiolite stress test on 10/25/06 with ejection fraction of 59%), Ultrasound (Thyroid ultrasound on 03/23/13 and 10/06/12, right thigh soft tissue ultrasound on 07/10/11 , right upper quadrant abdominal ultrasound on 07/14/09, abdominal ultrasound on 08/26/06), Upper GI X-Ray/Series (Including small bowel series on 08/26/06) Social & Family History - Family History HEENT: Reports: Macular Degeneration, Other (See Below). Denies: Glaucoma, Retinal Detachment Other HEENT Family History: Maternal grandmother with macular degeneration Cardiac: Reports: Bypass, CAD, High Cholesterol, Hypertension, IL, Other (See Below). Denies: Afib, Aneurysm, Arrhythmia, Blood Clots/VTE/DVT, Heart Failure , Syncope Other Cardiac Family History: Father with history of IL in his 60s with CABG 4 , hypertension in mother, sister, and maternal grandmother, paternal uncles 6 with MIs and CABGs in her 60s, father and paternal uncles with heart disease and hyperlipidemia as above Respiratory: Reports: COPD, Other (See Below). Denies: Asthma, PE, Pneumothorax , Sleep Apnea Other Respiratory Family Hisory: Paternal aunts 6 with COPD GI: Reports: None. Denies: Celiac Disease, Cholelithiasis, Colon Polyps, GERD, GI bleed, Inflammatory Bowel Disease, Irritable Bowel Syndrome, PUD : Reports: Renal Disease/Insufficiency, Other (See Below). Denies: Renal Calculus Other Family History: Sister with SLE with secondary renal insufficiency OBGYN: Reports: None. Denies: Dysfunctional uterine bleeding, Endometriosis, Fibroids, Recurrent Spontaneous Musculoskeletal: Reports: SLE, Other (See Below). Denies: Gout, RA Other Musculoskeletal Family History: Sister with SLE Neurological: Reports: None. Denies: Alzheimers Disease, Cerebral Aneurysms, CVA, Dementia, Migraines, MS, Parkinson's, Seizure, TIA Psychiatric: Reports: None. Denies: Abuse, Victim of, ADD, ADHD, Anxiety, Depression, Psych Hospitalization(s), PTSD, Suicide Attempt Endocrine/Metabolic: Reports: Diabetes, Type I, Diabetes, type II, Hyperthyroidism, Hypothyroidism, IDDM, Other (See Below) Other Endocrine/Metabolic Family History: Sister with juvenile IDDM, father with hyperthyroidism, maternal grandmother with hypothyroidism and goiter, paternal aunt 1 with IDDM, 2 other paternal aunts with AODM Hematologic: Reports: Anemia, B12 Deficiency, SLE, Other (See Below) Other Hematologic Family History: Sister with lupus, mother with vitamin B-12 deficiency anemia Immunologic: Reports: SLE, Other (See Below). Denies: AIDS, HIV Other Immunologic Family History: Sister with lupus Dermatologic: Reports: None. Denies: Eczema, Psoriasis Oncologic: Reports: Colon, Other (See Below). Denies: Breast, Cervix, Hodgkin' s Lymphoma, Leukemia, Lymphoma, Non-Hodgkin's Lymphoma, Uterine Other Oncologic Family History: Mother with history of colon cancer at age 50, father with fatal small cell lung cancer at age 63 with history of tobacco use and history of asbestos exposure - Tobacco Use Smoking Status *Q: Never Smoker Used Tobacco, but Quit: No Smoking Cessation Information Provided To Patient: No Second Hand Smoke Exposure: No Second Hand Smoke Education Provided: No - Caffeine Use Caffeine Use: Reports: Soda (1 soda per week). Denies: Coffee, Energy Drinks, Tea - Alcohol Use Alcohol Use History: Yes Days Per Week of Alcohol Use: 0 (No previous DWIs, problems with alcohol abuse, etc.) Number of Drinks Per Day: 2 (Usually only about 3 times per year) Total Drinks Per Week: 0 Alcohol Use in Last Twelve Months: Yes Alcohol Use Frequency: Socially - Recreational Drug Use Recreational Drug Use: No Drug Use in Last 12 Months: No Recreational Drug Type: Denies: Amphetamines (Speed), Cocaine, Heroin, Inhalants (Glues, Solvents, Aerosols), LSD (Acid), Marijuana/Hashish, Methamphetamine - Living Situation & Occupation Living situation: Reports: (1979, 2 children), with Family (With ) 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 Denies: Fever, Chills, Malaise, Weakness, Fatigue, Night Sweats, Decreased Appetite, Weight Loss, Weight Gain HEENT: Reports: Glasses. Denies: Dental Pain, Ear Pain, Eye Pain, Hearing Loss , Rhinitis, Sinus Problem, Throat Pain, Vertigo, Vision Change Respiratory: Reports: No Symptoms. Denies: Shortness of Breath, Wheezing, Pleuritic Chest Pain, Cough Cardiovascular: Reports: No Symptoms. Denies: Chest Pain, Blood Pressure Problem, Claudication, Dyspnea on Exertion, Edema, Lightheadedness, Orthopnea, Palpitations, Syncope Endocrine: Reports: No Symptoms. Denies: Fatigue GI/Abdominal: Reports: Abdominal Pain (Colic), Nausea, Vomiting. Denies: Anorexia, Black Stool, Bloody Stool, Constipation, Diarrhea, Decreased Appetite , Difficulty Swallowing, Distension, Flatus, Hematemesis, Hematochezia, Melena, Stool Incontinence : Reports: Flank Pain, Pain (Colic). Denies: Discharge, Dysuria, Frequency, Hematuria, Incontinence, Urgency, Urinary Retention Musculoskeletal: Reports: No Symptoms. Denies: Neck Pain, Shoulder Pain, Arm Pain, Back Pain, Leg Pain Skin: Reports: Diaphoresis (Mild with colic). Denies: Wound Neurological: Reports: No Symptoms. Denies: Confusion, Dizziness, Headache, Numbness, Paresthesia, Syncope, Weakness Psychiatric: Reports: No Symptoms. Denies: Agitation, Anxiety, Confusion, Depression, Hallucinations Hematologic/Lymphatic: Reports: No Symptoms Immunologic: Reports: No Symptoms ED EXAM, RENAL/ - Physical Exam Exam: See Below Exam Limited By: No Limitations General Appearance: Alert, WD/WN, No Apparent Distress Head: Atraumatic, Normocephalic Neck: Normal Inspection, Supple, Non-Tender, Full Range of Motion. No: Lymphadenopathy (L), Lymphadenopathy (R), Thyromegaly Respiratory/Chest: No Respiratory Distress, Lungs Clear, Normal Breath Sounds, No Accessory Muscle Use, Chest Non-Tender. No: Pleural Rub, Retractions Cardiovascular: Normal Peripheral Pulses, Regular Rate, Rhythm, No Edema, No Gallop, No JVD, No Murmur, No Rub. No: Gallop/S3, Gallop/S4, Friction Rub GI/Abdominal: Normal Bowel Sounds, Soft, Non-Tender, No Organomegaly, No Distention, No Abnormal Bruit, No Mass. No: Guarding (Female) Exam: Deferred Rectal (Female) Exam: Deferred Back Exam: Full Range of Motion, CVA Tenderness (R) (Colic only). No: CVA Tenderness (L), Decreased Range of Motion, Muscle Spasm, Paraspinal Tenderness, Vertebral Tenderness Extremities: Normal Inspection, Normal Range of Motion, Non-Tender, No Pedal Edema, Normal Capillary Refill. No: Ignacio's Sign Neurological: Alert, Oriented, CN II-XII Intact, Normal Cognition, Normal Gait, No Motor/Sensory Deficits Psychiatric: Normal Affect, Normal Mood Skin Exam: Warm, Dry, Intact, Normal Color, No Rash. No: Diaphoretic, Wound/ Incision Lymphatic: No Adenopathy Course - Vital Signs Last Recorded V/S: Last Vital Signs Temp 36.0 C 09/12/17 02:25 Pulse 80 09/12/17 04:12 Resp 20 09/12/17 04:12 BP 124/68 09/12/17 04:12 Pulse Ox 96 09/12/17 04:12 Vital Signs - 24 hr 09/12/17 09/12/17 02:25 04:12 Temperature [ 36.0 C Temporal] Pulse, 93 80 Peripheral [ Right Pulse Oximetry] Respiratory 22 H 20 Rate Blood Pressure 152/85 H 124/68 [Right Upper Arm] O2 Sat by Pulse 100 96 Oximetry - Orders/Labs/Meds Orders: Active Orders 24 hr Category Date Time Status Peripheral IV Care [RC] . DIRECTED Care 09/12/17 02:38 Active Nothing Per Oral Diet [DIET] Diet 09/12/17 Breakfast Active Abdomen Pelvis wo Cont [CT] Stat Exams 09/12/17 02:41 Taken CULTURE URINE [RM] Stat Lab 09/12/17 03:45 Received Sodium Chloride 0.9% [Saline Flush] Med 09/12/17 02:38 Active 10 ml FLUSH ASDIRECTED PRN Obtain Past Medical Record [OM.PC] Urgent Oth 09/12/17 02:38 Active Peripheral IV Insertion Adult [OM.PC] Stat Oth 09/12/17 02:38 Ordered Resuscitation Status Stat Resus Stat 09/12/17 02:38 Ordered Medication Orders Sodium Chloride (Saline Flush) 10 ml FLUSH ASDIRECTED PRN PRN Reason: Keep Vein Open Last Admin: 09/12/17 04:08 Dose: 10 ml Labs: Laboratory Tests 09/12/17 09/12/17 09/12/17 Range/Units 02:53 02:53 02:53 WBC 8.8 (4.0-10.2) K/uL RBC 4.33 (3.77-5.09) M/uL Hgb 13.4 (11.7-15.5) g/dL Hct 39.0 (34.0-46.0) % MCV 90.1 (84.0-98.0) fL MCH 30.9 (28.2-33.3) pg MCHC 34.4 (31.7-36.0) g/dL RDW 12.3 (11.2-14.1) % Plt Count 238 (150-350) K/uL Neut % (Auto) 79.8 (45.0-80.0) % Lymph % (Auto) 10.5 (10.0-50.0) % [place] % (Auto) 8.3 (2.0-14.0) % Eos % (Auto) 0.8 (0.0-5.0) % Baso % (Auto) 0.6 (0.0-2.0) % Neut # (Auto) 7.03 H (1.40-7.00) K/uL Lymph # (Auto) 0.92 (0.50-3.50) K/uL [place] # (Auto) 0.73 (0.00-1.00) K/uL Eos # (Auto) 0.07 (0.00-0.50) K/uL Baso # (Auto) 0.05 (0.00-0.20) K/uL Sodium 132 L (136-145) mmol/L Potassium 4.1 (3.5-5.1) mmol/L Chloride 97 L (98-107) mmol/L Carbon Dioxide 25.0 (21.0-32.0) mmol/L BUN 26 H (7-18) mg/dL Creatinine 1.43 H (0.51-1.17) mg/dL Est Cr Clr Drug Dosing 40.14 mL/min Estimated GFR (MDRD) 38 mL/min Glucose 117 H (74-106) mg/dL Lactic Acid 2.3 H (0.4-2.0) mmol/L Uric Acid 6.4 (2.6-7.2) mg/dL Calcium 8.9 (8.5-10.1) mg/dL Magnesium 1.6 L (1.8-2.4) mg/dL Total Bilirubin 0.4 (0.2-1.0) mg/dL AST 21 (15-37) U/L ALT 30 (12-78) U/L Alkaline Phosphatase 83 (46-116) IU/L Total Protein 6.9 (6.4-8.2) g/dL Albumin 3.9 (3.4-5.0) g/dL Specimen Type Urine Color Urine Appearance Urine pH (5.0-9.0) Ur Specific [place] (1.005-1.030) Urine Protein (NEGATIVE) mg/dL Urine Glucose (UA) (NEGATIVE) mg/dL Urine Ketones (NEGATIVE) mg/dL Urine Occult Blood (NEGATIVE) Urine Nitrite (NEGATIVE) Urine Bilirubin (NEGATIVE) Urine Urobilinogen (0.2-1.0) E.U./dL Ur Leukocyte Esterase (NEGATIVE) Urine RBC /HPF Urine WBC /HPF Ur Epithelial Cells /LPF Urine Bacteria (NONE TO FEW) /HPF 09/12/17 Range/Units 03:45 WBC (4.0-10.2) K/uL RBC (3.77-5.09) M/uL Hgb (11.7-15.5) g/dL Hct (34.0-46.0) % MCV (84.0-98.0) fL MCH (28.2-33.3) pg MCHC (31.7-36.0) g/dL RDW (11.2-14.1) % Plt Count (150-350) K/uL Neut % (Auto) (45.0-80.0) % Lymph % (Auto) (10.0-50.0) % [place] % (Auto) (2.0-14.0) % Eos % (Auto) (0.0-5.0) % Baso % (Auto) (0.0-2.0) % Neut # (Auto) (1.40-7.00) K/uL Lymph # (Auto) (0.50-3.50) K/uL [place] # (Auto) (0.00-1.00) K/uL Eos # (Auto) (0.00-0.50) K/uL Baso # (Auto) (0.00-0.20) K/uL Sodium (136-145) mmol/L Potassium (3.5-5.1) mmol/L Chloride (98-107) mmol/L Carbon Dioxide (21.0-32.0) mmol/L BUN (7-18) mg/dL Creatinine (0.51-1.17) mg/dL Est Cr Clr Drug Dosing mL/min Estimated GFR (MDRD) mL/min Glucose (74-106) mg/dL Lactic Acid (0.4-2.0) mmol/L Uric Acid (2.6-7.2) mg/dL Calcium (8.5-10.1) mg/dL Magnesium (1.8-2.4) mg/dL Total Bilirubin (0.2-1.0) mg/dL AST (15-37) U/L ALT (12-78) U/L Alkaline Phosphatase (46-116) IU/L Total Protein (6.4-8.2) g/dL Albumin (3.4-5.0) g/dL Specimen Type Urincc Urine Color Yellow Urine Appearance Clear Urine pH 7.0 (5.0-9.0) Ur Specific [place] 1.025 (1.005-1.030) Urine Protein Trace H (NEGATIVE) mg/dL Urine Glucose (UA) Negative (NEGATIVE) mg/dL Urine Ketones Negative (NEGATIVE) mg/dL Urine Occult Blood Small H (NEGATIVE) Urine Nitrite Negative (NEGATIVE) Urine Bilirubin Negative (NEGATIVE) Urine Urobilinogen 0.2 (0.2-1.0) E.U./dL Ur Leukocyte Esterase Negative (NEGATIVE) Urine RBC 10-20 H /HPF Urine WBC 0-5 /HPF Ur Epithelial Cells Few /LPF Urine Bacteria Rare (NONE TO FEW) /HPF Urine specimen set up for culture and sensitivity Meds: Medications Generic Name Dose Route Start Last Admin Trade Name Freq PRN Reason Stop Dose Admin Sodium Chloride 10 ml 09/12/17 02:38 09/12/17 04:08 Saline Flush FLUSH 10 ml ASDIRECTED PRN Administration Keep Vein Open Discontinued Medications Generic Name Dose Route Start Last Admin Trade Name Freq PRN Reason Stop Dose Admin Fentanyl 50 mcg 09/12/17 02:40 09/12/17 03:45 Sublimaze IVPUSH 09/12/17 02:41 50 mcg ONETIME ONE Administration Fentanyl 50 mcg 09/12/17 03:36 09/12/17 03:47 Sublimaze IVPUSH 09/12/17 03:37 Not Given ONETIME ONE Lactated Ringer's 1,000 mls @ 999 mls/hr 09/12/17 02:38 09/12/17 03:09 Ringers, Lactated IV 09/12/17 03:38 999 mls/hr .BOLUS ONE Administration Ketorolac Tromethamine 30 mg 09/12/17 04:00 09/12/17 04:04 Toradol IVPUSH 09/12/17 04:01 30 mg ONETIME ONE Administration Ondansetron HCl 4 mg 09/12/17 02:38 09/12/17 02:56 Zofran IVPUSH 09/12/17 02:39 4 mg ONETIME ONE Administration Tamsulosin HCl 0.4 mg 09/12/17 02:50 09/12/17 03:10 Flomax PO 09/12/17 02:51 0.4 mg ONETIME ONE Administration - Radiology Interpretation Free Text/Narrative:: Telephone consultation at 03:50 a.m. with the radiology department at [facility]. Verbal report of CT scan of the abdomen and pelvis using stone protocol without contrast shows evidence of 5.5 mm in diameter stone in the distal third of the right ureter with secondary mild to moderate hydronephrosis CT Results Date: 09/12/17 CT Results Time: 03:50 Departure - Departure Time of Disposition: 04:25 Disposition: Admitted As Inpatient 65 Condition: Good Clinical Impression: Hypomagnesemia, Nephrolithiasis, Renal insufficiency, Peptic reflux disease, Elevated lactic acid level Osteoarthritis Qualifiers: Osteoarthritis location: multiple joints Osteoarthritis type: primary Qualified Code(s): M15.0 - Primary generalized (osteo)arthritis Hypertension Qualifiers: Hypertension type: essential hypertension Qualified Code(s): I10 - Essential ( primary) hypertension Sjogrens syndrome Qualifiers: Sjogren's organ involvement: unspecified organ involvement Qualified Code(s): M35.00 - Sicca syndrome, unspecified - Discharge Information - Problem List & Annotations (1) Nephrolithiasis SNOMED Code(s): 29179225 Code(s): N20.0 - CALCULUS OF KIDNEY Status: Chronic Priority: High Current Visit: Yes Annotation/Comment:: Note CT scan results as above confirming right distal urolithiasis with secondary hydronephrosis. Symptoms refractory to therapy despite aggressive treatment in the emergency room. Various therapeutic options were given to the patient and her with patient to be admitted for further IV hydration and pain control. [facility] [place] in [place]. [place]13. Urology consultation depending on her clinical course. Known history of chronic bilateral nephrolithiasis in the renal pelvis with recurrent urolithiasis/colic with all urine to be strained for stone collection. Aggressive treatment in the emergency room including with IV fluids , fentanyl, IV Toradol, and Flomax as above (2) Hypertension SNOMED Code(s): 13985498 Code(s): I10 - ESSENTIAL (PRIMARY) HYPERTENSION Status: Chronic Priority : Medium Current Visit: Yes Annotation/Comment:: Blood Pressure somewhat elevated in the emergency room on arrival secondary to her pain. Otherwise Stable by history Qualifiers: Hypertension type: essential hypertension Qualified Code(s): I10 - Essential (primary) hypertension (3) Osteoarthritis SNOMED Code(s): 675009167 Code(s): M19.90 - UNSPECIFIED OSTEOARTHRITIS, UNSPECIFIED SITE Status: Chronic Priority: Medium Current Visit: Yes Annotation/Comment:: Stable by history Qualifiers: Osteoarthritis location: multiple joints Osteoarthritis type: primary Qualified Code(s): M15.0 - Primary generalized (osteo)arthritis (4) Peptic reflux disease SNOMED Code(s): 37255106 Code(s): K21.9 - GASTRO-ESOPHAGEAL REFLUX DISEASE WITHOUT ESOPHAGITIS Status: Chronic Priority: Medium Current Visit: Yes Annotation/Comment:: Stable by history with no evidence of other abdominal pain, GI bleed, etc.. Initiate IV Protonix therapy as GI prophylaxis secondary to planned IV Toradol therapy (5) Sjogrens syndrome SNOMED Code(s): 83115538 Code(s): M35.00 - SICCA SYNDROME, UNSPECIFIED Status: Chronic Priority: Medium Current Visit: Yes Annotation/Comment:: Stable by history Qualifiers: Sjogren's organ involvement: unspecified organ involvement Qualified Code(s ): M35.00 - Sicca syndrome, unspecified (6) Renal insufficiency SNOMED Code(s): 515378154 Code(s): N28.9 - DISORDER OF KIDNEY AND URETER, UNSPECIFIED Status: Acute Priority: Medium Current Visit: Yes Onset Date: 04/10/17 Annotation/ Comment:: Mild persistent renal insufficiency. Continue aggressive IV fluids with repeat blood work tomorrow a.m. (7) Hypomagnesemia SNOMED Code(s): 022575552 Code(s): E83.42 - HYPOMAGNESEMIA Status: Chronic Priority: Medium Current Visit: Yes Onset Date: 04/10/17 Annotation/Comment:: Initiate magnesium oxide supplementation with caution secondary to her nephrolithiasis (8) Hyponatremia SNOMED Code(s): 12329360 Code(s): E87.1 - HYPO-OSMOLALITY AND HYPONATREMIA Status: Acute Priority : Medium Current Visit: Yes Onset Date: 09/12/17 Annotation/Comment:: Lactated Ringer's started in the emergency room with continuation of aggressive IV fluids secondary to her urolithiasis and renal insufficiency (9) Elevated lactic acid level SNOMED Code(s): 2955621 Code(s): R79.89 - OTHER SPECIFIED ABNORMAL FINDINGS OF BLOOD CHEMISTRY Status: Acute Priority: Medium Current Visit: Yes Onset Date: 09/12/17 Annotation/Comment:: Only mildly elevated lactic acid, however no evidence of sepsis. Repeat lactic acid level in 6 hours and in the a.m. tomorrow - Problem List Review Problem List Initiated/Reviewed/Updated: Yes - My Orders Last 24 Hours: My Active Orders 09/12/17 02:38 Peripheral IV Care [RC] . DIRECTED Sodium Chloride 0.9% [Saline Flush] 10 ml FLUSH ASDIRECTED PRN Obtain Past Medical Record [OM.PC] Urgent Peripheral IV Insertion Adult [OM.PC] Stat Resuscitation Status Stat 09/12/17 02:41 Abdomen Pelvis wo Cont [CT] Stat 09/12/17 03:45 CULTURE URINE [RM] Stat 09/12/17 Breakfast Nothing Per Oral Diet [DIET] - Assessment/Plan Admission H&P: Please use this note as an admission H&P Last 24 Hours: My Active Orders 09/12/17 02:38 Peripheral IV Care [RC] . DIRECTED Sodium Chloride 0.9% [Saline Flush] 10 ml FLUSH ASDIRECTED PRN Obtain Past Medical Record [OM.PC] Urgent Peripheral IV Insertion Adult [OM.PC] Stat Resuscitation Status Stat 09/12/17 02:41 Abdomen Pelvis wo Cont [CT] Stat 09/12/17 03:45 CULTURE URINE [RM] Stat 09/12/17 Breakfast Nothing Per Oral Diet [DIET] Assessment:: As above Plan: As above. Extensive precautions were given to the patient and her , who are in agreement with the treatment plan. The patient will require about 3-4 days of inpatient/acute care secondary to multiple health problems as above.
[2017-09-12] MEDS ORDERED: Ondansetron 4 MG/2 ML SDV IVPUSH ONE (02:38)
[2017-09-12] MEDS ORDERED: Lactated Ringers 1,000 ML IV ONE (02:38)
[2017-09-12] MEDS ORDERED: Tamsulosin 0.4 MG Cap.ER PO ONE (02:50)
[2017-09-12] MEDS: fentaNYL 100 MCG/2 ML SDV IVPUSH ONE ×2 (02:58→03:45)
[2017-09-12] MEDS ORDERED: fentaNYL 100 MCG/2 ML SDV IVPUSH ONE (03:36)
[2017-09-12] MEDS ORDERED: Ketorolac 30 MG/ML SDV IVPUSH ONE (04:00)
[2017-09-12] MEDS: Sodium Chloride 0.9% 10 ML Syringe FLUSH PRN ×3 (04:08→05:04)
[2017-09-12] MEDS ORDERED: LORazepam 1 MG Tab PO PRN (04:31)
[2017-09-12] MEDS ORDERED: Ondansetron 4 MG/2 ML SDV IVPUSH PRN (04:36)
[2017-09-12] MEDS ORDERED: traMADol 50 MG Tab PO PRN (04:36)
[2017-09-12] MEDS ORDERED: Ketorolac 15 MG/ML SDV IVPUSH PRN (04:36)
[2017-09-12] MEDS ORDERED: Acetaminophen 325 MG Tab PO PRN (04:36)
[2017-09-12] MEDS ORDERED: Sodium Chloride 0.9% 10 ML Syringe FLUSH PRN (04:36)
[2017-09-12] MEDS ORDERED: Famotidine 20 MG/2 ML SDV IVPUSH ONE (05:00)
[2017-09-12] MEDS ORDERED: Pantoprazole 40 MG Vial IVPUSH ONE (05:00)
[2017-09-12] MEDS: Lactated Ringers 1,000 ML IV SCH ×3 (05:22→21:40)
[2017-09-12] MEDS: fentaNYL 100 MCG/2 ML SDV IVPUSH PRN ×3 (08:01→17:35)
[2017-09-12] MEDS: Magnesium Oxide 400 MG Tab PO SCH (08:01)
[2017-09-12] MEDS: Metoprolol Tartrate 50 MG Tab PO SCH ×2 (08:02→17:39)
[2017-09-12] MEDS: Hydroxychloroquine 200 MG Tab PO SCH (08:02)
[2017-09-12] MEDS: amLODIPine 5 MG Tab PO SCH ×2 (08:03→17:39)
[2017-09-12] MEDS: Ketorolac 15 MG/ML SDV IVPUSH PRN ×2 (10:55→16:36)
[2017-09-12] MEDS: Tamsulosin 0.4 MG Cap.ER PO SCH ×2 (17:40→20:39)
[2017-09-12] MEDS ORDERED: traZODone 50 MG Tab PO SCH (20:00)
[2017-09-12] MEDS ORDERED: LORazepam 1 MG Tab PO SCH (20:00)
[2017-09-12] MEDS ORDERED: Hydroxychloroquine 200 MG Tab PO SCH (20:00)
[2017-09-12] MEDS: Pantoprazole 40 MG Vial IVPUSH SCH (20:02)
[2017-09-13] MEDS: Ketorolac 15 MG/ML SDV IVPUSH PRN (00:56)
[2017-09-13] MEDS: Sodium Chloride 0.9% 10 ML Syringe FLUSH PRN (00:56)
[2017-09-13] MEDS: Lactated Ringers 1,000 ML IV SCH (05:59)
[2017-09-13] MEDS: Hydroxychloroquine 200 MG Tab PO SCH (08:00)
[2017-09-13] MEDS: Tamsulosin 0.4 MG Cap.ER PO SCH (08:00)
[2017-09-13 08:01] LABS: CHLORIDE,CL 104 mmol/L (98-107); SODIUM,NA 139 mmol/L (136-145)
[2017-09-13] MEDS: Metoprolol Tartrate 50 MG Tab PO SCH (08:01)
[2017-09-13] MEDS: amLODIPine 5 MG Tab PO SCH (08:01)
[2017-09-13] MEDS: Magnesium Oxide 400 MG Tab PO SCH (08:02)
[2017-09-13] MEDS: Pantoprazole 40 MG Vial IVPUSH SCH (08:03)
[2017-09-13 11:24] VITALS: BP 119/72
--- NOTE | 2017-09-13 13:23 | PCM.PN ---
- General Info Date of Service: 09/13/17 Functional Status: Reports: Pain Controlled, Tolerating Diet - Review of Systems General: Reports: No Symptoms HEENT: Reports: No Symptoms Pulmonary: Reports: No Symptoms Cardiovascular: Reports: No Symptoms Gastrointestinal: Reports: No Symptoms Genitourinary: Reports: No Symptoms Musculoskeletal: Reports: No Symptoms Skin: Reports: No Symptoms Neurological: Reports: No Symptoms Psychiatric: Reports: No Symptoms - Patient Data Vitals - Most Recent: Last Vital Signs Temp 97.7 F 09/13/17 11:23 Pulse 81 09/13/17 11:23 Resp 18 09/13/17 11:23 BP 119/72 09/13/17 11:23 Pulse Ox 98 09/13/17 11:23 Weight - Most Recent: 211 lb 10.3 oz I&O - Last 24 Hours: Intake & Output 09/12/17 09/13/17 09/13/17 22:59 06:59 14:59 Intake Total 1110 3468 690 Output Total 4100 1200 1000 Balance -2990 2268 -310 Lab Results Last 24 Hours: Laboratory Results - last 24 hr 09/13/17 09/13/17 09/13/17 Range/Units 07:30 07:30 07:30 WBC 4.1 (4.0-10.2) K/uL RBC 4.04 (3.77-5.09) M/uL Hgb 12.6 (11.7-15.5) g/dL Hct 37.5 (34.0-46.0) % MCV 92.8 (84.0-98.0) fL MCH 31.2 (28.2-33.3) pg MCHC 33.6 (31.7-36.0) g/dL RDW 12.4 (11.2-14.1) % Plt Count 201 (150-350) K/uL Neut % (Auto) 56.5 (45.0-80.0) % Lymph % (Auto) 28.4 (10.0-50.0) % [place] % (Auto) 10.4 (2.0-14.0) % Eos % (Auto) 3.5 (0.0-5.0) % Baso % (Auto) 1.2 (0.0-2.0) % Neut # (Auto) 2.29 (1.40-7.00) K/uL Lymph # (Auto) 1.15 (0.50-3.50) K/uL [place] # (Auto) 0.42 (0.00-1.00) K/uL Eos # (Auto) 0.14 (0.00-0.50) K/uL Baso # (Auto) 0.05 (0.00-0.20) K/uL Sodium 139 (136-145) mmol/L Potassium 3.9 (3.5-5.1) mmol/L Chloride 104 (98-107) mmol/L Carbon Dioxide 30.3 (21.0-32.0) mmol/L BUN 17 (7-18) mg/dL Creatinine 0.90 (0.51-1.17) mg/dL Est Cr Clr Drug Dosing 63.78 mL/min Estimated GFR (MDRD) > 60 mL/min Glucose 94 (74-106) mg/dL Lactic Acid 1.3 (0.4-2.0) mmol/L Calcium 8.9 (8.5-10.1) mg/dL Magnesium 1.6 L (1.8-2.4) mg/dL Total Bilirubin 0.4 (0.2-1.0) mg/dL AST 16 (15-37) U/L ALT 24 (12-78) U/L Alkaline Phosphatase 71 (46-116) IU/L Total Protein 6.0 L (6.4-8.2) g/dL Albumin 3.1 L (3.4-5.0) g/dL Med Orders - Current: Current Medications Acetaminophen (Tylenol) 650 mg PO Q4H PRN PRN Reason: Pain (Mild 1-3)/fever Amlodipine Besylate (Norvasc) 5 mg PO BID [facility] Last Admin: 09/13/17 08:01 Dose: 5 mg Fentanyl (Sublimaze) 50 mcg IVPUSH Q4H PRN PRN Reason: Pain (severe 7-10) Last Admin: 09/12/17 17:35 Dose: 50 mcg Hydroxychloroquine Sulfate (Plaquenil) 200 mg PO BEDTIME [facility] Last Admin: 09/12/17 20:02 Dose: 200 mg Hydroxychloroquine Sulfate (Plaquenil) 400 mg PO DAILY [facility] Last Admin: 09/13/17 08:00 Dose: 400 mg Ketorolac Tromethamine (Toradol) 15 mg IVPUSH Q6H PRN PRN Reason: Breakthrough Pain Last Admin: 09/13/17 00:56 Dose: 15 mg Lorazepam (Ativan) 0.5 mg PO DAILY PRN PRN Reason: Insomnia Lorazepam (Ativan) 2 mg PO BEDTIME [facility] Last Admin: 09/12/17 20:01 Dose: 2 mg Magnesium Oxide (Magnesium Oxide) 400 mg PO DAILY [facility] Last Admin: 09/13/17 08:02 Dose: 400 mg Metoprolol Tartrate (Lopressor) 50 mg PO BID [facility] Last Admin: 09/13/17 08:01 Dose: 50 mg Ondansetron HCl (Zofran) 4 mg IVPUSH Q6H PRN PRN Reason: Nausea/Vomiting Last Admin: 09/12/17 08:01 Dose: 4 mg Pantoprazole Sodium (Protonix Iv) 40 mg IVPUSH Q12H [facility] Last Admin: 09/13/17 08:03 Dose: 40 mg Sodium Chloride (Saline Flush) 10 ml FLUSH ASDIRECTED PRN PRN Reason: Keep Vein Open Last Admin: 09/13/17 00:56 Dose: 10 ml Sodium Chloride (Saline Flush) 10 ml FLUSH Q12H PRN PRN Reason: Keep Vein Open Last Admin: 09/12/17 20:02 Dose: 10 ml [facility] Last Admin: 09/13/17 08:00 Dose: 0.4 mg Tramadol HCl (Ultram) 50 mg PO Q6H PRN PRN Reason: Pain (moderate 4-6) Trazodone HCl (Trazodone) 50 mg PO BEDTIME [facility] Last Admin: 09/12/17 20:02 Dose: 50 mg Discontinued Medications Famotidine (Pepcid) 40 mg IVPUSH ONETIME ONE Stop: 09/12/17 05:01 Last Admin: 09/12/17 04:59 Dose: 40 mg Fentanyl (Sublimaze) 50 mcg IVPUSH ONETIME ONE Stop: 09/12/17 02:41 Last Admin: 09/12/17 03:45 Dose: 50 mcg Fentanyl (Sublimaze) 50 mcg IVPUSH ONETIME ONE Stop: 09/12/17 03:37 Last Admin: 09/12/17 03:47 Dose: Not Given Lactated Ringer's (Ringers, Lactated) 1,000 mls @ 999 mls/hr IV .BOLUS ONE Stop: 09/12/17 03:38 Last Admin: 09/12/17 03:09 Dose: 999 mls/hr Lactated Ringer's (Ringers, Lactated) 1,000 mls @ 125 mls/hr IV ASDIRECTED [facility] Last Admin: 09/13/17 05:59 Dose: 125 mls/hr Ketorolac Tromethamine (Toradol) 30 mg IVPUSH ONETIME ONE Stop: 09/12/17 04:01 Last Admin: 09/12/17 04:04 Dose: 30 mg Ketorolac Tromethamine (Toradol) 15 mg IVPUSH Q6H PRN PRN Reason: Breakthrough Pain Ondansetron HCl (Zofran) 4 mg IVPUSH ONETIME ONE Stop: 09/12/17 02:39 Last Admin: 09/12/17 02:56 Dose: 4 mg Pantoprazole Sodium (Protonix Iv) 40 mg IVPUSH ONETIME ONE Stop: 09/12/17 05:01 Last Admin: 09/12/17 04:59 Dose: 40 mg Tamsulosin HCl (Flomax) 0.4 mg PO ONETIME ONE Stop: 09/12/17 02:51 Last Admin: 09/12/17 03:10 Dose: 0.4 mg - Exam General: Alert, Oriented, Cooperative, No Acute Distress HEENT: Pupils Equal, Pupils Reactive, EOMI, Mucous Membr. Moist/[place] Neck: Trachea Midline, No JVD Lungs: Clear to Auscultation, Normal Respiratory Effort Cardiovascular: Regular Rate, Regular Rhythm GI/Abdominal Exam: Soft, Non-Tender ("sore" right side of abdomen) (Female) Exam: Deferred Back Exam: Normal Inspection Extremities: Normal Inspection, Non-Tender, No Pedal Edema Skin: Warm, Dry, Intact, Ecchymosis (forehead) Neurological: No New Focal Deficit Psy/Mental Status: Alert, Normal Affect, Normal Mood - Problem List & Annotations (1) Renal insufficiency SNOMED Code(s): 870996849 Code(s): N28.9 - DISORDER OF KIDNEY AND URETER, UNSPECIFIED Status: Acute Priority: Medium Current Visit: Yes Onset Date: 04/10/17 Annotation/ Comment:: Mild persistent renal insufficiency. Continue aggressive IV fluids with repeat blood work tomorrow a.m. (2) Hypertension SNOMED Code(s): 11312292 Code(s): I10 - ESSENTIAL (PRIMARY) HYPERTENSION Status: Chronic Priority : Medium Current Visit: Yes Qualifiers: Hypertension type: essential hypertension Qualified Code(s): I10 - Essential (primary) hypertension Annotation/Comment:: Blood Pressure somewhat elevated in the emergency room on arrival secondary to her pain. Otherwise Stable by history (3) Hypomagnesemia SNOMED Code(s): 584387705 Code(s): E83.42 - HYPOMAGNESEMIA Status: Chronic Priority: Medium Current Visit: Yes Onset Date: 04/10/17 Annotation/Comment:: Initiate magnesium oxide supplementation with caution secondary to her nephrolithiasis (4) Nephrolithiasis SNOMED Code(s): 82920317 Code(s): N20.0 - CALCULUS OF KIDNEY Status: Chronic Priority: High Current Visit: Yes Annotation/Comment:: Note CT scan results as above confirming right distal urolithiasis with secondary hydronephrosis. Symptoms refractory to therapy despite aggressive treatment in the emergency room. Various therapeutic options were given to the patient and her with patient to be admitted for further IV hydration and pain control. [facility] [place] care in the a.m. on 09/13. Urology consultation depending on her clinical course. Known history of chronic bilateral nephrolithiasis in the renal pelvis with recurrent urolithiasis/colic with all urine to be strained for stone collection. Aggressive treatment in the emergency room including with IV fluids , fentanyl, IV Toradol, and Flomax as above (5) Osteoarthritis SNOMED Code(s): 652284411 Code(s): M19.90 - UNSPECIFIED OSTEOARTHRITIS, UNSPECIFIED SITE Status: Chronic Priority: Medium Current Visit: Yes Qualifiers: Osteoarthritis location: multiple joints Osteoarthritis type: primary Qualified Code(s): M15.0 - Primary generalized (osteo)arthritis Annotation/Comment:: Stable by history (6) Peptic reflux disease SNOMED Code(s): 30568968 Code(s): K21.9 - GASTRO-ESOPHAGEAL REFLUX DISEASE WITHOUT ESOPHAGITIS Status: Chronic Priority: Medium Current Visit: Yes Annotation/Comment:: Stable by history with no evidence of other abdominal pain, GI bleed, etc.. Initiate IV Protonix therapy as GI prophylaxis secondary to planned IV Toradol therapy (7) Sjogrens syndrome SNOMED Code(s): 67536213 Code(s): M35.00 - SICCA SYNDROME, UNSPECIFIED Status: Chronic Priority: Medium Current Visit: Yes Qualifiers: Sjogren's organ involvement: unspecified organ involvement Qualified Code(s ): M35.00 - Sicca syndrome, unspecified Annotation/Comment:: Stable by history - Problem List Review Problem List Initiated/Reviewed/Updated: Yes - My Orders Last 24 Hours: My Active Orders 09/13/17 13:13 Discontinue Saline Lock [Peripheral IV Discontinue] [OM.PC] Routine - Plan Plan:: 09/13/17 Preeti Kiddon Pain is markedly improved today. We have not seen the stone in the urine.
--- NOTE | 2017-09-13 13:30 | PCM.DCSUM1 ---
Discharge Summary - Discharge Data Discharge Date: 09/13/17 Discharge Disposition: Home, Self-Care 01 Condition: Good - Discharge Diagnosis/Problem(s) (1) Renal insufficiency SNOMED Code(s): 026799530 ICD Code: N28.9 - DISORDER OF KIDNEY AND URETER, UNSPECIFIED Status: Acute Priority: Medium Current Visit: Yes Onset Date: 04/10/17 Problem Details: Mild persistent renal insufficiency. Continue aggressive IV fluids with repeat blood work tomorrow a.m. (2) Hypertension SNOMED Code(s): 11537533 ICD Code: I10 - ESSENTIAL (PRIMARY) HYPERTENSION Status: Chronic Priority : Medium Current Visit: Yes Problem Details: Blood Pressure somewhat elevated in the emergency room on arrival secondary to her pain. Otherwise Stable by history Qualifiers: Hypertension type: essential hypertension Qualified Code(s): I10 - Essential (primary) hypertension (3) Hypomagnesemia SNOMED Code(s): 518583489 ICD Code: E83.42 - HYPOMAGNESEMIA Status: Chronic Priority: Medium Current Visit: Yes Onset Date: 04/10/17 Problem Details: Initiate magnesium oxide supplementation with caution secondary to her nephrolithiasis (4) Nephrolithiasis SNOMED Code(s): 86113717 ICD Code: N20.0 - CALCULUS OF KIDNEY Status: Chronic Priority: High Current Visit: Yes Problem Details: Note CT scan results as above confirming right distal urolithiasis with secondary hydronephrosis. Symptoms refractory to therapy despite aggressive treatment in the emergency room. Various therapeutic options were given to the patient and her with patient to be admitted for further IV hydration and pain control. [facility] [place]. [place] . Urology consultation depending on her clinical course. Known history of chronic bilateral nephrolithiasis in the renal pelvis with recurrent urolithiasis/colic with all urine to be strained for stone collection. Aggressive treatment in the emergency room including with IV fluids, fentanyl, IV Toradol, and Flomax as above (5) Osteoarthritis SNOMED Code(s): 836833666 ICD Code: M19.90 - UNSPECIFIED OSTEOARTHRITIS, UNSPECIFIED SITE Status: Chronic Priority: Medium Current Visit: Yes Problem Details: Stable by history Qualifiers: Osteoarthritis location: multiple joints Osteoarthritis type: primary Qualified Code(s): M15.0 - Primary generalized (osteo)arthritis (6) Peptic reflux disease SNOMED Code(s): 39377799 ICD Code: K21.9 - GASTRO-ESOPHAGEAL REFLUX DISEASE WITHOUT ESOPHAGITIS Status: Chronic Priority: Medium Current Visit: Yes Problem Details: Stable by history with no evidence of other abdominal pain, GI bleed, etc.. Initiate IV Protonix therapy as GI prophylaxis secondary to planned IV Toradol therapy (7) Sjogrens syndrome SNOMED Code(s): 83975980 ICD Code: M35.00 - SICCA SYNDROME, UNSPECIFIED Status: Chronic Priority: Medium Current Visit: Yes Problem Details: Stable by history Qualifiers: Sjogren's organ involvement: unspecified organ involvement Qualified Code(s ): M35.00 - Sicca syndrome, unspecified - Patient Instructions Diet: Usual Diet as Tolerated Activity: Rest and Relax Today (and tomorrow. Back to work Saturday09/16/17.) Showering/Bathing: February Shower - Discharge Plan Home Medications: Home Meds Cholecalciferol (Vitamin D3) [Vitamin D3] 5,000 unit PO DAILY 08/14/14 [History] Hydroxychloroquine [Plaquenil] 400 mg PO DAILY 08/14/14 [History] LORazepam [Ativan] 0.5 mg PO DAILY PRN 08/14/14 [History] LORazepam [Ativan] 2 mg PO BEDTIME 08/14/14 [History] Lactobacillus Combo No.10 [Probiotic] 1 cap PO DAILY 08/14/14 [History] Metoprolol Tartrate [Lopressor] 50 mg PO BID 08/14/14 [History] Nortriptyline HCl 40 mg PO BEDTIME 08/14/14 [History] Omeprazole 20 mg PO DAILY 08/14/14 [History] amLODIPine Besylate [Amlodipine Besylate] 5 mg PO BID 08/14/14 [History] traZODone HCl [Trazodone HCl] 50 mg PO BEDTIME 08/14/14 [History] Hydroxychloroquine [Plaquenil] 200 mg PO BEDTIME 04/10/17 [History] Pentazocine HCl/Naloxone HCl [Pentazocine-Naloxone Tablet] 1 each PO Q4H PRN [History] HYDROmorphone [Dilaudid] 1 mg PO Q4H PRN 09/12/17 [History] hydrOXYzine Pamoate [Hydroxyzine Pamoate] 25 mg PO Q4H PRN 09/12/17 [History] Forms: ED Department Discharge Referrals: PCP,None [Primary Care Provider] - - Discharge Summary/Plan Comment DC Time >30 min.: No Discharge Summary/Plan Comment: 57 year old recurrent kidney stone on right. CT showed hydronephrosis, elevated creatinine which normalized today. Pain is mostly gone. We will try home and follow up as an outpatient. Check labs next week. Cheek kidney ultrasound in ~1 month. - Patient Data Vitals - Most Recent: Last Vital Signs Temp 97.7 F 09/13/17 11:23 Pulse 81 09/13/17 11:23 Resp 18 09/13/17 11:23 BP 119/72 09/13/17 11:23 Pulse Ox 98 09/13/17 11:23 Weight - Most Recent: 211 lb 10.3 oz I&O - Last 24 hours: Intake & Output 09/12/17 09/13/17 09/13/17 22:59 06:59 14:59 Intake Total 1110 3468 690 Output Total 4100 1200 1000 Balance -2990 2268 -310 Lab Results - Last 24 hrs: Laboratory Results - last 24 hr 09/13/17 09/13/17 09/13/17 Range/Units 07:30 07:30 07:30 WBC 4.1 (4.0-10.2) K/uL RBC 4.04 (3.77-5.09) M/uL Hgb 12.6 (11.7-15.5) g/dL Hct 37.5 (34.0-46.0) % MCV 92.8 (84.0-98.0) fL MCH 31.2 (28.2-33.3) pg MCHC 33.6 (31.7-36.0) g/dL RDW 12.4 (11.2-14.1) % Plt Count 201 (150-350) K/uL Neut % (Auto) 56.5 (45.0-80.0) % Lymph % (Auto) 28.4 (10.0-50.0) % [place] % (Auto) 10.4 (2.0-14.0) % Eos % (Auto) 3.5 (0.0-5.0) % Baso % (Auto) 1.2 (0.0-2.0) % Neut # (Auto) 2.29 (1.40-7.00) K/uL Lymph # (Auto) 1.15 (0.50-3.50) K/uL [place] # (Auto) 0.42 (0.00-1.00) K/uL Eos # (Auto) 0.14 (0.00-0.50) K/uL Baso # (Auto) 0.05 (0.00-0.20) K/uL Sodium 139 (136-145) mmol/L Potassium 3.9 (3.5-5.1) mmol/L Chloride 104 (98-107) mmol/L Carbon Dioxide 30.3 (21.0-32.0) mmol/L BUN 17 (7-18) mg/dL Creatinine 0.90 (0.51-1.17) mg/dL Est Cr Clr Drug Dosing 63.78 mL/min Estimated GFR (MDRD) > 60 mL/min Glucose 94 (74-106) mg/dL Lactic Acid 1.3 (0.4-2.0) mmol/L Calcium 8.9 (8.5-10.1) mg/dL Magnesium 1.6 L (1.8-2.4) mg/dL Total Bilirubin 0.4 (0.2-1.0) mg/dL AST 16 (15-37) U/L ALT 24 (12-78) U/L Alkaline Phosphatase 71 (46-116) IU/L Total Protein 6.0 L (6.4-8.2) g/dL Albumin 3.1 L (3.4-5.0) g/dL Med Orders - Current: Current Medications Acetaminophen (Tylenol) 650 mg PO Q4H PRN PRN Reason: Pain (Mild 1-3)/fever Amlodipine Besylate (Norvasc) 5 mg PO BID [facility] Last Admin: 09/13/17 08:01 Dose: 5 mg Fentanyl (Sublimaze) 50 mcg IVPUSH Q4H PRN PRN Reason: Pain (severe 7-10) Last Admin: 09/12/17 17:35 Dose: 50 mcg Hydroxychloroquine Sulfate (Plaquenil) 200 mg PO BEDTIME [facility] Last Admin: 09/12/17 20:02 Dose: 200 mg Hydroxychloroquine Sulfate (Plaquenil) 400 mg PO DAILY [facility] Last Admin: 09/13/17 08:00 Dose: 400 mg Ketorolac Tromethamine (Toradol) 15 mg IVPUSH Q6H PRN PRN Reason: Breakthrough Pain Last Admin: 09/13/17 00:56 Dose: 15 mg Lorazepam (Ativan) 0.5 mg PO DAILY PRN PRN Reason: Insomnia Lorazepam (Ativan) 2 mg PO BEDTIME [facility] Last Admin: 09/12/17 20:01 Dose: 2 mg Magnesium Oxide (Magnesium Oxide) 400 mg PO DAILY [facility] Last Admin: 09/13/17 08:02 Dose: 400 mg Metoprolol Tartrate (Lopressor) 50 mg PO BID [facility] Last Admin: 09/13/17 08:01 Dose: 50 mg Ondansetron HCl (Zofran) 4 mg IVPUSH Q6H PRN PRN Reason: Nausea/Vomiting Last Admin: 09/12/17 08:01 Dose: 4 mg Pantoprazole Sodium (Protonix Iv) 40 mg IVPUSH Q12H [facility] Last Admin: 09/13/17 08:03 Dose: 40 mg Sodium Chloride (Saline Flush) 10 ml FLUSH ASDIRECTED PRN PRN Reason: Keep Vein Open Last Admin: 09/13/17 00:56 Dose: 10 ml Sodium Chloride (Saline Flush) 10 ml FLUSH Q12H PRN PRN Reason: Keep Vein Open Last Admin: 09/12/17 20:02 Dose: 10 ml [facility]amsulosin [facility]) [facility] Last Admin: 09/13/17 08:00 Dose: 0.4 mg Tramadol HCl (Ultram) 50 mg PO Q6H PRN PRN Reason: Pain (moderate 4-6) Trazodone HCl (Trazodone) 50 mg PO BEDTIME [facility] Last Admin: 09/12/17 20:02 Dose: 50 mg Discontinued Medications Famotidine (Pepcid) 40 mg IVPUSH ONETIME ONE Stop: 09/12/17 05:01 Last Admin: 09/12/17 04:59 Dose: 40 mg Fentanyl (Sublimaze) 50 mcg IVPUSH ONETIME ONE Stop: 09/12/17 02:41 Last Admin: 09/12/17 03:45 Dose: 50 mcg Fentanyl (Sublimaze) 50 mcg IVPUSH ONETIME ONE Stop: 09/12/17 03:37 Last Admin: 09/12/17 03:47 Dose: Not Given Lactated Ringer's (Ringers, Lactated) 1,000 mls @ 999 mls/hr IV .BOLUS ONE Stop: 09/12/17 03:38 Last Admin: 09/12/17 03:09 Dose: 999 mls/hr Lactated Ringer's (Ringers, Lactated) 1,000 mls @ 125 mls/hr IV ASDIRECTED [facility] Last Admin: 09/13/17 05:59 Dose: 125 mls/hr Ketorolac Tromethamine (Toradol) 30 mg IVPUSH ONETIME ONE Stop: 09/12/17 04:01 Last Admin: 09/12/17 04:04 Dose: 30 mg Ketorolac Tromethamine (Toradol) 15 mg IVPUSH Q6H PRN PRN Reason: Breakthrough Pain Ondansetron HCl (Zofran) 4 mg IVPUSH ONETIME ONE Stop: 09/12/17 02:39 Last Admin: 09/12/17 02:56 Dose: 4 mg Pantoprazole Sodium (Protonix Iv) 40 mg IVPUSH ONETIME ONE Stop: 09/12/17 05:01 Last Admin: 09/12/17 04:59 Dose: 40 mg Tamsulosin HCl (Flomax) 0.4 mg PO ONETIME ONE Stop: 09/12/17 02:51 Last Admin: 09/12/17 03:10 Dose: 0.4 mg *Q Meaningful Use (DIS) - VTE *Q VTE Criteria *Q: - Stroke *Q Stroke Criteria *Q: - AMI *Q AMI Criteria *Q:
== END 2017-09-13 14:10 | disposition home or self-care (01) | DRG 694 ==
LOC: LL.ED 02:24 → LL.MS 04:04
PROVIDERS: ADMIT Family Medicine; ATTEND Family Medicine
DX: N13.2 Hydronephrosis with renal and ureteral calculous obstruction (principal); N28.9 Disorder of kidney and ureter, unspecified; E83.42 Hypomagnesemia; K21.9 Gastro-esophageal reflux disease without esophagitis; I10 Essential (primary) hypertension; M35.00 Sjogren syndrome, unspecified; Z88.8 Allergy status to other drugs, medicaments and biological substances; Z79.899 Other long term (current) drug therapy; H54.7 Unspecified visual loss; K44.9 Diaphragmatic hernia without obstruction or gangrene; F32.9 Major depressive disorder, single episode, unspecified; F41.9 Anxiety disorder, unspecified; M19.90 Unspecified osteoarthritis, unspecified site
CPT/HCPCS: 36415; 74176; 80053; 81001; 83605; 83735; 84550; 85025; 87086; 96361; 96374; 96375; 96376; 99285; A9270-GY; C9113; J1885; J2405; J3010; J7050; J7120; S0028

== ENCOUNTER 2017-12-03 11:06 | Inpatient (IN) | payer OTHER ==
--- NOTE | 2017-12-03 11:51 | EDM.PDOC ---
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 Onset: Sudden Onset Date: 12/03/17 Onset Time: 06:00 Duration: Hour(s):, Getting Worse Location: Reports: Chest Quality: Reports: Ache Severity: Moderate Improves with: Reports: None Worsens with: Reports: None Associated Symptoms: Reports: No Other Symptoms - Related Data Allergies Allergy/AdvReac Type Severity Reaction Status Date / Time acetaminophen Allergy Cannot Verified 09/12/17 02:32 [From Tylenol Sinus Remember Congestion Pain] chlorpheniramine Allergy Cannot Verified 09/12/17 02:32 [From Tylenol Sinus Remember Congestion Pain] codeine Allergy Itching Verified 09/12/17 02:32 dextrose [From Metamucil] Allergy Difficulty Verified 09/12/17 02:32 Breathing, swelling around eyes diphenhydramine HCl Allergy Hyperactivi Verified 09/12/17 02:32 [From Benadryl] ty estrogens, conjugated Allergy Hives Verified 09/12/17 02:32 [From Premarin] estropipate [From Ogen 2.5] Allergy Hives Verified 09/12/17 02:32 guaifenesin Allergy Cannot Verified 09/12/17 02:32 [From Tylenol Sinus Remember Congestion Pain] hydrochlorothiazide Allergy tongue Verified 09/12/17 02:32 swelling hydrocodone Allergy Headache Verified 09/12/17 02:32 influenza virus vaccine, Allergy rash, Verified 09/12/17 02:32 specific difficulty [Influenza Virus breathing Vacc,Specific] loratadine [From Claritin] Allergy Other Verified 09/12/17 02:32 morphine Allergy Confusion, Verified 09/12/17 02:32 itching, difficulty breathing oxycodone Allergy Cannot Verified 09/12/17 02:32 Remember phenylephrine Allergy Cannot Verified 09/12/17 02:32 [From Tylenol Sinus Remember Congestion Pain] psyllium husk Allergy swelling Verified 09/12/17 02:32 [From Metamucil] around eyes, difficulty breathing psyllium seed Allergy swelling Verified 09/12/17 02:32 [From Metamucil] around eyes, dfiiculty breathing sucrose [From Metamucil] Allergy swelling Verified 09/12/17 02:32 around eyes, difficulty breathing temazepam [Temazepam] Allergy Hyperactivi Verified 09/12/17 02:32 ty tramadol HCl [From Ultram] Allergy Confusion Verified 09/12/17 02:32 vitamin E (d-alpha Allergy Difficulty Verified 09/12/17 02:32 tocopherol) Breathing [vitamin E] bandaids Allergy Rash Uncoded 09/12/17 02:32 Home Meds: Home Meds Cholecalciferol (Vitamin D3) [Vitamin D3] 5,000 unit PO DAILY 08/14/14 [History] LORazepam [Ativan] 0.5 mg PO DAILY PRN 08/14/14 [History] LORazepam [Ativan] 2 mg PO BEDTIME 08/14/14 [History] Lactobacillus Combo No.10 [Probiotic] 1 cap PO DAILY 08/14/14 [History] Metoprolol Tartrate [Lopressor] 50 mg PO BID 08/14/14 [History] Nortriptyline HCl 40 mg PO BEDTIME 08/14/14 [History] Omeprazole 20 mg PO DAILY 08/14/14 [History] amLODIPine Besylate [Amlodipine Besylate] 5 mg PO BID 08/14/14 [History] traZODone HCl [Trazodone HCl] 50 mg PO BEDTIME 08/14/14 [History] Hydroxychloroquine [Plaquenil] 100 mg PO BID 04/10/17 [History] Pentazocine HCl/Naloxone HCl [Pentazocine-Naloxone Tablet] 1 each PO Q4H PRN [History] hydrOXYzine Pamoate [Hydroxyzine Pamoate] 25 mg PO Q4H PRN 09/12/17 [History] Ciprofloxacin [IJD: Ciprofloxacin HCl] 500 mg PO BID 12/03/17 [History] Past Medical History HEENT History: Reports: Impaired Vision, Sinusitis, Other (See Below) Other HEENT History: Chronic intermittent sinusitis, patient wears glasses Cardiovascular History: Reports: Hypertension, Other (See Below) Other Cardiovascular History: Hypertension with probable mild borderline hypertensive cardiomegaly by x-ray, history of fatty liver with patient unaware of her cholesterol status Respiratory History: Reports: Bronchitis, Recurrent, Intubation, Previous, Pneumonia, Recurrent, Pulmonary Fibrosis, Other (See Below) Other Respiratory History: Pulmonary fibrosis by chest x-ray, benign right lower lobe pulmonary nodule diagnosed on 07/21/09 with multiple negative follow- up CT scans as below Gastrointestinal History: Reports: Cholelithiasis, Gastritis, GERD, Hemorrhoids , Hiatal Hernia, PUD, Other (See Below) Other Gastrointestinal History: Gastric ulcer in her 20s Genitourinary History: Reports: Chronic Renal Insuffiency, Hydronephrosis, Renal Calculus, UTI, Recurrent, Other (See Below) Other Genitourinary History: History of recurrent urolithiasis with bilateral nephrolithiasis by CT scans with initial episode in 2003, last colic attack in the right side on 04/10/17 with moderate hydronephrosis and spontaneous passage with previous episode secondary to 3 mm right-sided urolithiasis with mild hydronephrosis on 08/14/14; mild renal insufficiency [place] History: Reports: Dysfunctional Uterine Bleeding, Endometriosis, Fibroids , , Spontaneous Musculoskeletal History: Reports: Arthritis, Back Pain, Chronic, Neck Pain, Chronic, Osteoarthritis, Other (See Below) Other Musculoskeletal History: Sjogren's syndrome, right foot fracture in about 2003 Neurological History: Reports: Headaches, Chronic, Migraines Psychiatric History: Reports: Anxiety, Depression Endocrine/Metabolic History: Reports: Multinodular Thyroid, Other (See Below) Other Endocrine/Metabolic History: bilateral thyroid nodules Hematologic History: Reports: None Immunologic History: Reports: Other (See Below) Other Immunologic History: Sjogren's syndrome Oncologic (Cancer) History: Reports: None Dermatologic History: Reports: Angiodema, Other (See Below) Other Dermatologic History: history of chronic intermittent idiopathic angioedema - Infectious Disease History Infectious Disease History: Reports: None - Past Surgical History Head Surgeries/Procedures: Reports: None HEENT Surgical History: Reports: Oral Surgery, Other (See Below) Other HEENT Surgeries/Procedures: [place] teeth extraction 4 in her 30s Cardiovascular Surgical History: Reports: None Respiratory Surgical History: Reports: None GI Surgical History: Reports: Appendectomy, Colonoscopy, EGD, Other (See Below) Other GI Surgeries/Procedures: Concomitant appendectomy with her hysterectomy as below in 1997, EGD in her 20s, last colonoscopy on 10/05/10 with previous evaluation on 08/01/06, laparoscopic abdominal exploratory procedure on 04/10/04 Female Surgical History: Reports: Breast Biopsy, Cystoscopy, Hysterectomy, Salpingo-Oophorectomy, Tubal Ligation, Other (See Below) Other Female Surgeries/Procedures: Excision of benign milk ducts/papilloma from the left breast in her 30s, complete hysterectomy with bilateral salpingo- oophorectomy in 1997 secondary to uterine fibroids and dysfunctional uterine bleeding, bilateral tubal ligation in 1983, cystoscopy with basket procedure with no stones found on 11/22/03 Endocrine Surgical History: Reports: None Neurological Surgical History: Reports: None Musculoskeletal Surgical History: Reports: None Oncologic Surgical History: Reports: None Dermatological Surgical History: Reports: Other (See Below) - Past Imaging History Past Imaging History: Reports: CAT Scan (Multiple CTs of the chest both with and without IV contrast with last evaluation with IV contrast on 09/28/13 and initial evaluation on 07/21/09, last CT scan of the abdomen and pelvis with IV contrast on 08/14/[address] scan of the abdomen and pelvis on 04/10/17 with previous evaluation on 08/30/06, CT of the sinuses on 03/31/12, CT of the neck with soft tissue procedure and concomitant maxillofacial CT scan on 06/28/10) , Mammogram (Last mammogram on 09/04/17), Stress Testing (Negative Cardiolite stress test on 10/25/06 with ejection fraction of 59%), Ultrasound (Thyroid ultrasound on 03/23/13 and 10/06/12, right thigh soft tissue ultrasound on 07/10/11 , right upper quadrant abdominal ultrasound on 07/14/09, abdominal ultrasound on 08/26/06), Upper GI X-Ray/Series (Including small bowel series on 08/26/06) Social & Family History - Family History HEENT: Reports: Macular Degeneration, Other (See Below) Other HEENT Family History: Maternal grandmother with macular degeneration Cardiac: Reports: Bypass, CAD, High Cholesterol, Hypertension, MA, Other (See Below) Other Cardiac Family History: Father with history of MA in his 60s with CABG 4 , hypertension in mother, sister, and maternal grandmother, paternal uncles 6 with MIs and CABGs in her 60s, father and paternal uncles with heart disease and hyperlipidemia as above Respiratory: Reports: COPD, Other (See Below) Other Respiratory Family Hisory: Paternal aunts 6 with COPD GI: Reports: None : Reports: Renal Disease/Insufficiency, Other (See Below) Other Family History: Sister with SLE with secondary renal insufficiency OBGYN: Reports: None Musculoskeletal: Reports: SLE, Other (See Below) Other Musculoskeletal Family History: Sister with SLE Neurological: Reports: None Psychiatric: Reports: None Endocrine/Metabolic: Reports: Diabetes, Type I, Diabetes, type II, Hyperthyroidism, Hypothyroidism, IDDM, Other (See Below) Other Endocrine/Metabolic Family History: Sister with juvenile IDDM, father with hyperthyroidism, maternal grandmother with hypothyroidism and goiter, paternal aunt 1 with IDDM, 2 other paternal aunts with AODM Hematologic: Reports: Anemia, B12 Deficiency, SLE, Other (See Below) Other Hematologic Family History: Sister with lupus, mother with vitamin B-12 deficiency anemia Immunologic: Reports: SLE, Other (See Below) Other Immunologic Family History: Sister with lupus Dermatologic: Reports: None Oncologic: Reports: Colon, Other (See Below) Other Oncologic Family History: Mother with history of colon cancer at age 50, father with fatal small cell lung cancer at age 63 with history of tobacco use and history of asbestos exposure - Tobacco Use Smoking Status *Q: Never Smoker Used Tobacco, but Quit: No Second Hand Smoke Exposure: No - Caffeine Use Caffeine Use: Reports: Soda - Alcohol Use Days Per Week of Alcohol Use: 0 Number of Drinks Per Day: 2 (Usually only about 3 times per year) Total Drinks Per Week: 0 - Recreational Drug Use Recreational Drug Use: No Drug Use in Last 12 Months: No - Living Situation & Occupation Living situation: Reports: (1979, 2 children), with Family (With ) Occupation: Employed ([employer] at [employer] in [place]) ED ROS GENERAL - Review of Systems Review Of Systems: See Below Constitutional: Reports: Night Sweats (Over the weekend) HEENT: Reports: No Symptoms Respiratory: Reports: Other (Chest heaviness) Cardiovascular: Reports: Dyspnea on Exertion, Lightheadedness, Palpitations Endocrine: Reports: No Symptoms GI/Abdominal: Reports: No Symptoms : Reports: No Symptoms Musculoskeletal: Reports: Muscle Pain Skin: Reports: No Symptoms Neurological: Reports: No Symptoms Psychiatric: Reports: No Symptoms Hematologic/Lymphatic: Reports: No Symptoms ED EXAM, GENERAL - Physical Exam Exam: See Below Exam Limited By: No Limitations General Appearance: Alert, WD/WN, No Apparent Distress Eye Exam: Bilateral Eye: EOMI, PERRL Ears: Normal External Exam, Normal Canal, Hearing Grossly Normal Ear Exam: Bilateral Ear: Auricle Normal, Canal Normal, TM normal Nose: Normal Inspection, Normal Mucosa, No Blood Throat/Mouth: Normal Inspection, Normal Lips, Normal Teeth, Normal Gums, Normal Oropharynx, Normal Voice, No Airway Compromise Head: Atraumatic, Normocephalic Neck: Normal Inspection, Supple, Non-Tender, Full Range of Motion Respiratory/Chest: No Respiratory Distress, Lungs Clear, Normal Breath Sounds, No Accessory Muscle Use Cardiovascular: Regular Rate, Rhythm, Tachycardia GI/Abdominal: Normal Bowel Sounds, Soft, Non-Tender, No Organomegaly, No Distention, No Abnormal Bruit, No Mass Rectal (Female) Exam: Deferred Back Exam: Normal Inspection, Full Range of Motion, NT Extremities: Normal Inspection, Normal Range of Motion, Non-Tender, Normal Capillary Refill, No Pedal Edema Neurological: Alert, Oriented, CN II-XII Intact, Normal Cognition, Normal Gait, Normal Reflexes, No Motor/Sensory Deficits Psychiatric: Normal Affect, Normal Mood Course - Vital Signs Last Recorded V/S: Last Vital Signs Temp 98.2 F 12/04/17 04:00 Pulse 94 12/04/17 07:41 Resp 16 12/04/17 04:00 BP 129/90 12/04/17 07:41 Pulse Ox 96 12/04/17 04:00 - Orders/Labs/Meds Orders: Active Orders 24 hr Category Date Time Status Patient Status [ADT] Routine ADT 12/03/17 12:11 Active Ambulate [RC] ASDIRECTED Care 12/03/17 12:11 Active Antiembolic Devices [RC] 08,20 Care 12/03/17 12:16 Active May Shower [RC] ASDIRECTED Care 12/03/17 12:11 Active Pulse Oximetry [RC] PRN Care 12/03/17 12:14 Active Telemetry Monitoring [Cardiac Monitoring] [RC] Q2HR Care 12/03/17 12:19 Active Up With Assistance [RC] ASDIRECTED Care 12/03/17 12:11 Active Vital Signs [RC] Q4HR Care 12/03/17 12:11 Active CXR [Chest 2V] [CR] Stat Exams 12/03/17 11:15 Taken Ciprofloxacin [Ciprofloxacin HCl] Med 12/03/17 18:00 Active 500 mg PO BID Enoxaparin [Lovenox] Med 12/04/17 08:00 Active 30 mg SUBCUT DAILY Hydroxychloroquine [Plaquenil] Med 12/03/17 18:00 Active 100 mg PO BID LORazepam [Ativan] Med 12/03/17 12:22 Active 0.5 mg PO DAILY PRN LORazepam [Ativan] Med 12/03/17 20:00 Active 2 mg PO BEDTIME Lactobacillus Rhamnosus GG [Culturelle] Med 12/04/17 08:00 Active 1 cap PO DAILY Metoprolol Tartrate [Lopressor] Med 12/03/17 18:00 Active 50 mg PO BID Naloxone/Pentazocine Med 12/03/17 12:22 Active 1 each PO Q4H PRN Omeprazole Med 12/04/17 08:00 Active 20 mg PO DAILY amLODIPine [Norvasc] Med 12/03/17 18:00 Active 5 mg PO BID hydrOXYzine Pamoate [Vistaril] Med 12/03/17 12:22 Active 25 mg PO Q4H PRN traZODone Med 12/03/17 20:00 Active 50 mg PO BEDTIME DVT/VTE Prophylaxis Reflex [OM.PC] Routine Oth 12/03/17 12:11 Ordered Medication Orders Amlodipine Besylate (Norvasc) 5 mg PO BID [facility] Last Admin: 12/04/17 07:43 Dose: 5 mg Admin: 12/03/17 17:54 Dose: 5 mg Cholecalciferol (Vitamin D3) 5,000 units PO DAILY [facility] Last Admin: 12/04/17 07:40 Dose: 5,000 units Ciprofloxacin (Ciprofloxacin Hcl) 500 mg PO BID [facility] Last Admin: 12/04/17 07:41 Dose: 500 mg Admin: 12/03/17 17:52 Dose: 500 mg Enoxaparin Sodium (Lovenox) 30 mg SUBCUT DAILY [facility] Last Admin: 12/04/17 07:43 Dose: 30 mg Hydroxychloroquine Sulfate (Plaquenil) 100 mg PO BID [facility] Last Admin: 12/04/17 07:42 Dose: 100 mg Admin: 12/03/17 18:00 Dose: 100 mg Hydroxyzine Pamoate (Vistaril) 25 mg PO Q4H PRN PRN Reason: Nausea Lactobacillus Rhamnosus (Culturelle) 1 cap PO DAILY [facility] Last Admin: 12/04/17 07:41 Dose: 1 cap Lorazepam (Ativan) 0.5 mg PO DAILY PRN PRN Reason: Insomnia Lorazepam (Ativan) 2 mg PO BEDTIME [facility] Last Admin: 12/03/17 19:38 Dose: 2 mg Metoprolol Tartrate (Lopressor) 50 mg PO BID [facility] Last Admin: 12/04/17 07:41 Dose: 50 mg Admin: 12/03/17 17:53 Dose: 50 mg Non-Formulary Medication (Naloxone/Pentazocine) 1 each PO Q4H PRN PRN Reason: Pain Omeprazole (Omeprazole) 20 mg PO DAILY [facility] Last Admin: 12/04/17 07:42 Dose: 20 mg Nortriptyline 10 Mg (Cap(Own Med)) 0 each PO BEDTIME [facility] Last Admin: 12/03/17 20:07 Dose: 1 each Trazodone HCl (Trazodone) 50 mg PO BEDTIME [facility] Last Admin: 12/03/17 19:38 Dose: 50 mg Labs: Laboratory Tests 12/03/17 12/03/17 Range/Units 11:22 11:22 WBC 6.6 (4.0-10.2) K/uL RBC 4.16 (3.77-5.09) M/uL Hgb 12.8 (11.7-15.5) g/dL Hct 38.5 (34.0-46.0) % MCV 92.5 (84.0-98.0) fL MCH 30.8 (28.2-33.3) pg MCHC 33.2 (31.7-36.0) g/dL RDW 12.8 (11.2-14.1) % Plt Count 208 (150-350) K/uL Neut % (Auto) 68.4 (45.0-80.0) % Lymph % (Auto) 19.6 (10.0-50.0) % [place] % (Auto) 10.0 (2.0-14.0) % Eos % (Auto) 1.2 (0.0-5.0) % Baso % (Auto) 0.8 (0.0-2.0) % Neut # (Auto) 4.53 (1.40-7.00) K/uL Lymph # (Auto) 1.30 (0.50-3.50) K/uL [place] # (Auto) 0.66 (0.00-1.00) K/uL Eos # (Auto) 0.08 (0.00-0.50) K/uL Baso # (Auto) 0.05 (0.00-0.20) K/uL Sodium 141 (136-145) mmol/L Potassium 3.4 L (3.5-5.1) mmol/L Chloride 105 (98-107) mmol/L Carbon Dioxide 24.8 (21.0-32.0) mmol/L BUN 27 H (7-18) mg/dL Creatinine 1.08 (0.51-1.17) mg/dL Est Cr Clr Drug Dosing 53.15 mL/min Estimated GFR (MDRD) 52 mL/min Glucose 109 H (74-106) mg/dL Calcium 9.2 (8.5-10.1) mg/dL Total Bilirubin 0.4 (0.2-1.0) mg/dL AST 20 (15-37) U/L ALT 33 (12-78) U/L Alkaline Phosphatase 80 (46-116) IU/L NT-Pro-B Natriuret Pep 86 (0-125) pg/mL Total Protein 7.0 (6.4-8.2) g/dL Albumin 3.8 (3.4-5.0) g/dL Meds: Medications Generic Name Dose Route Start Last Admin Trade Name Freq PRN Reason Stop Dose Admin Amlodipine Besylate 5 mg 12/03/17 18:00 12/04/17 07:43 Norvasc PO 5 mg BID BRIGID Administration Cholecalciferol 5,000 units 12/04/17 08:00 12/04/17 07:40 Vitamin D3 PO 5,000 units DAILY [facility] Administration Ciprofloxacin 500 mg 12/03/17 18:00 12/04/17 07:41 Ciprofloxacin Hcl PO 500 mg BID [facility] Administration Enoxaparin Sodium 30 mg 12/04/17 08:00 12/04/17 07:43 Lovenox SUBCUT 30 mg DAILY [facility] Administration Hydroxychloroquine Sulfate 100 mg 12/03/17 18:00 12/04/17 07:42 Plaquenil PO 100 mg BID [facility] Administration Hydroxyzine Pamoate 25 mg 12/03/17 12:22 Vistaril PO Q4H PRN Nausea Lactobacillus Rhamnosus 1 cap 12/04/17 08:00 12/04/17 07:41 Culturelle PO 1 cap DAILY [facility]ID Administration Lorazepam 0.5 mg 12/03/17 12:22 Ativan PO DAILY PRN Insomnia Lorazepam 2 mg 12/03/17 20:00 12/03/17 19:38 Ativan PO 2 mg BEDTIME BRIGID Administration Metoprolol Tartrate 50 mg 12/03/17 18:00 12/04/17 07:41 Lopressor PO 50 mg BID [facility] Administration Non-Formulary Medication 1 each 12/03/17 12:22 Naloxone/Pentazocine PO Q4H PRN Pain Omeprazole 20 mg 12/04/17 08:00 12/04/17 07:42 Omeprazole PO 20 mg DAILY [facility] Administration Nortriptyline 10 Mg 0 each 12/04/17 20:00 12/03/17 20:07 Cap(Own Med) PO 1 each BEDTIME [facility] Administration Trazodone HCl 50 mg 12/03/17 20:00 12/03/17 19:38 Trazodone PO 50 mg BEDTIME [facility] Administration Discontinued Medications Generic Name Dose Route Start Last Admin Trade Name Freq PRN Reason Stop Dose Admin Digoxin 250 mcg 12/03/17 12:00 12/03/17 18:02 Lanoxin IVPUSH 12/03/17 18:01 250 mcg Q6H BRIGID Administration Non-Formulary Medication 5,000 unit 12/04/17 08:00 Cholecalciferol (Vitamin D3) [Vitamin D3] PO DAILY [facility] Non-Formulary Medication 40 mg 12/03/17 20:00 12/03/17 20:09 Nortriptyline Hcl [Nortriptyline Hcl] PO Not Given BEDTIME [facility] Departure - Departure Time of Disposition: 12:30 Disposition: Admitted As Inpatient 65 Condition: Fair Clinical Impression: Palpitations, Tachycardia, Paroxysmal supraventricular tachycardia, Sinus tachycardia - Problem List & Annotations (1) Tachycardia SNOMED Code(s): 6098803 Code(s): R00.0 - TACHYCARDIA, UNSPECIFIED Status: Acute Current Visit: Yes - Problem List Review Problem List Initiated/Reviewed/Updated: Yes - My Orders Last 24 Hours: My Active Orders 12/03/17 11:15 CXR [Chest 2V] [CR] Stat 12/03/17 12:11 Patient Status [ADT] Routine Ambulate [RC] ASDIRECTED May Shower [RC] ASDIRECTED Up With Assistance [RC] ASDIRECTED Vital Signs [RC] Q4HR DVT/VTE Prophylaxis Reflex [OM.PC] Routine 12/03/17 12:14 Pulse Oximetry [RC] PRN 12/03/17 12:16 Antiembolic Devices [RC] 12/03/17 12:19 Telemetry Monitoring [Cardiac Monitoring] [RC] Q2HR 12/03/17 12:22 LORazepam [Ativan] 0.5 mg PO DAILY PRN Naloxone/Pentazocine 1 each PO Q4H PRN hydrOXYzine Pamoate [Vistaril] 25 mg PO Q4H PRN 12/03/17 18:00 Ciprofloxacin [Ciprofloxacin HCl] 500 mg PO BID Hydroxychloroquine [Plaquenil] 100 mg PO BID Metoprolol Tartrate [Lopressor] 50 mg PO BID amLODIPine [Norvasc] 5 mg PO BID 12/03/17 20:00 LORazepam [Ativan] 2 mg PO BEDTIME traZODone 50 mg PO BEDTIME 12/04/17 08:00 Enoxaparin [Lovenox] 30 mg SUBCUT DAILY Lactobacillus Rhamnosus GG [Culturelle] 1 cap PO DAILY Omeprazole 20 mg PO DAILY - Assessment/Plan Admission H&P: Please use this note as an admission H&P Last 24 Hours: My Active Orders 12/03/17 11:15 CXR [Chest 2V] [CR] Stat 12/03/17 12:11 Patient Status [ADT] Routine Ambulate [RC] ASDIRECTED May Shower [RC] ASDIRECTED Up With Assistance [RC] ASDIRECTED Vital Signs [RC] Q4HR DVT/VTE Prophylaxis Reflex [OM.PC] Routine 12/03/17 12:14 Pulse Oximetry [RC] PRN 12/03/17 12:16 Antiembolic Devices [RC] ,12/03/17 12:19 Telemetry Monitoring [Cardiac Monitoring] [RC] Q2HR 12/03/17 12:22 LORazepam [Ativan] 0.5 mg PO DAILY PRN Naloxone/Pentazocine 1 each PO Q4H PRN hydrOXYzine Pamoate [Vistaril] 25 mg PO Q4H PRN 12/03/17 18:00 Ciprofloxacin [Ciprofloxacin HCl] 500 mg PO BID Hydroxychloroquine [Plaquenil] 100 mg PO BID Metoprolol Tartrate [Lopressor] 50 mg PO BID amLODIPine [Norvasc] 5 mg PO BID 12/03/17 20:00 LORazepam [Ativan] 2 mg PO BEDTIME traZODone 50 mg PO BEDTIME 12/04/17 08:00 Enoxaparin [Lovenox] 30 mg SUBCUT DAILY Lactobacillus Rhamnosus GG [Culturelle] 1 cap PO DAILY Omeprazole 20 mg PO DAILY Plan: Patient will be admitted to the hospital for evaluation.
[2017-12-03] MEDS: Digoxin 500 MCG/2 ML Amp IVPUSH SCH ×2 (12:00→18:02)
[2017-12-03] MEDS ORDERED: PENTAZOCINE PO PRN (12:22)
[2017-12-03] MEDS ORDERED: hydrOXYzine Pamoate 25 MG Cap PO PRN (12:22)
[2017-12-03] MEDS ORDERED: LORazepam 1 MG Tab PO PRN (12:22)
[2017-12-03] MEDS ORDERED: NALOXONE PO PRN (12:22)
[2017-12-03] MEDS ORDERED: Sodium Chloride 0.9% 1,000 ML IV SCH (12:30)
[2017-12-03] MEDS: Ciprofloxacin 500 MG Tab PO SCH (17:52)
[2017-12-03] MEDS: Metoprolol Tartrate 50 MG Tab PO SCH (17:53)
[2017-12-03] MEDS: amLODIPine 5 MG Tab PO SCH (17:54)
[2017-12-03] MEDS: Hydroxychloroquine 200 MG Tab PO SCH (18:00)
[2017-12-03] MEDS: traZODone 50 MG Tab PO SCH (19:38)
[2017-12-03] MEDS: LORazepam 1 MG Tab PO SCH (19:38)
[2017-12-03] MEDS ORDERED: NORTRIPTYLINE HCL PO SCH (20:00)
[2017-12-03] MEDS: NORTRIPTYLINE 10 MG PO SCH (20:07)
[2017-12-04] MEDS: Cholecalciferol (Vitamin D3) 1,000 Unit Tab PO SCH (07:40)
[2017-12-04] MEDS: Ciprofloxacin 500 MG Tab PO SCH ×2 (07:41→17:09)
[2017-12-04] MEDS: Metoprolol Tartrate 50 MG Tab PO SCH ×2 (07:41→17:09)
[2017-12-04] MEDS: Lactobacillus Rhamnosus GG (Probiotic) Cap PO SCH (07:41)
[2017-12-04] MEDS: Omeprazole 20 MG Cap.CR PO SCH (07:42)
[2017-12-04] MEDS: Hydroxychloroquine 200 MG Tab PO SCH ×2 (07:42→17:10)
[2017-12-04] MEDS: amLODIPine 5 MG Tab PO SCH ×2 (07:43→17:10)
[2017-12-04] MEDS: Enoxaparin 30 MG/0.3 ML Syringe SUBCUT SCH (07:43)
[2017-12-04 07:46] LABS: CHLORIDE,CL 103 mmol/L (98-107); SODIUM,NA 139 mmol/L (136-145)
[2017-12-04] MEDS ORDERED: Non-Formulary Medication 1 Each (Cholecalciferol (Vitamin D3) [Vitamin D3] 5,000 UNIT) PO SCH (08:00)
--- NOTE | 2017-12-04 16:38 | PCM.PN ---
- General Info Date of Service: 12/04/17 Functional Status: Reports: Tolerating Diet, Ambulating - Review of Systems General: Reports: Fatigue HEENT: Reports: No Symptoms Pulmonary: Reports: No Symptoms Cardiovascular: Reports: No Symptoms Gastrointestinal: Reports: No Symptoms Genitourinary: Reports: No Symptoms Musculoskeletal: Reports: No Symptoms Skin: Reports: No Symptoms Neurological: Reports: No Symptoms Psychiatric: Reports: No Symptoms - Patient Data Vitals - Most Recent: Last Vital Signs Temp 97.9 F 12/04/17 12:00 Pulse 98 12/04/17 12:00 Resp 15 12/04/17 12:00 BP 110/80 12/04/17 12:00 Pulse Ox 97 12/04/17 12:00 Weight - Most Recent: 199 lb 15.983 oz I&O - Last 24 Hours: Intake & Output 12/04/17 12/04/17 12/04/17 06:59 14:59 22:59 Intake Total 240 Output Total 200 Balance 40 Lab Results Last 24 Hours: Laboratory Results - last 24 hr 12/03/17 12/04/17 12/04/17 Range/Units 16:50 07:05 07:05 WBC 4.9 (4.0-10.2) K/uL RBC 4.24 (3.77-5.09) M/uL Hgb 12.8 (11.7-15.5) g/dL Hct 39.4 (34.0-46.0) % MCV 92.9 (84.0-98.0) fL MCH 30.2 (28.2-33.3) pg MCHC 32.5 (31.7-36.0) g/dL RDW 12.5 (11.2-14.1) % Plt Count 200 (150-350) K/uL Neut % (Auto) 60.9 (45.0-80.0) % Lymph % (Auto) 25.9 (10.0-50.0) % [place] % (Auto) 10.6 (2.0-14.0) % Eos % (Auto) 2.0 (0.0-5.0) % Baso % (Auto) 0.6 (0.0-2.0) % Neut # (Auto) 2.98 (1.40-7.00) K/uL Lymph # (Auto) 1.27 (0.50-3.50) K/uL [place] # (Auto) 0.52 (0.00-1.00) K/uL Eos # (Auto) 0.10 (0.00-0.50) K/uL Baso # (Auto) 0.03 (0.00-0.20) K/uL PT 10.5 (9.8-11.7) SEC INR 1.0 Sodium (136-145) mmol/L Potassium (3.5-5.1) mmol/L Chloride (98-107) mmol/L Carbon Dioxide (21.0-32.0) mmol/L BUN (7-18) mg/dL Creatinine (0.51-1.17) mg/dL Est Cr Clr Drug Dosing mL/min Estimated GFR (MDRD) mL/min Glucose (74-106) mg/dL Calcium (8.5-10.1) mg/dL Troponin I 0.004 (0.000-0.056) ng/mL 12/04/17 Range/Units 07:05 WBC (4.0-10.2) K/uL RBC (3.77-5.09) M/uL Hgb (11.7-15.5) g/dL Hct (34.0-46.0) % MCV (84.0-98.0) fL MCH (28.2-33.3) pg MCHC (31.7-36.0) g/dL RDW (11.2-14.1) % Plt Count (150-350) K/uL Neut % (Auto) (45.0-80.0) % Lymph % (Auto) (10.0-50.0) % [place] % (Auto) (2.0-14.0) % Eos % (Auto) (0.0-5.0) % Baso % (Auto) (0.0-2.0) % Neut # (Auto) (1.40-7.00) K/uL Lymph # (Auto) (0.50-3.50) K/uL [place] # (Auto) (0.00-1.00) K/uL Eos # (Auto) (0.00-0.50) K/uL Baso # (Auto) (0.00-0.20) K/uL PT (9.8-11.7) SEC INR Sodium 139 (136-145) mmol/L Potassium 3.8 (3.5-5.1) mmol/L Chloride 103 (98-107) mmol/L Carbon Dioxide 30.4 (21.0-32.0) mmol/L BUN 16 (7-18) mg/dL Creatinine 0.85 (0.51-1.17) mg/dL Est Cr Clr Drug Dosing 67.90 mL/min Estimated GFR (MDRD) > 60 mL/min Glucose 98 (74-106) mg/dL Calcium 9.1 (8.5-10.1) mg/dL Troponin I (0.000-0.056) ng/mL Med Orders - Current: Current Medications Amlodipine Besylate (Norvasc) 5 mg PO BID [facility] Last Admin: 12/04/17 07:43 Dose: 5 mg Cholecalciferol (Vitamin D3) 5,000 units PO DAILY [facility] Last Admin: 12/04/17 07:40 Dose: 5,000 units Ciprofloxacin (Ciprofloxacin Hcl) 500 mg PO BID [facility] Last Admin: 12/04/17 07:41 Dose: 500 mg Enoxaparin Sodium (Lovenox) 30 mg SUBCUT DAILY [facility] Last Admin: 12/04/17 07:43 Dose: 30 mg Hydroxychloroquine Sulfate (Plaquenil) 100 mg PO BID [facility] Last Admin: 12/04/17 07:42 Dose: 100 mg Hydroxyzine Pamoate (Vistaril) 25 mg PO Q4H PRN PRN Reason: Nausea Lactobacillus Rhamnosus (Culturelle) 1 cap PO DAILY [facility] Last Admin: 12/04/17 07:41 Dose: 1 cap Lorazepam (Ativan) 0.5 mg PO DAILY PRN PRN Reason: Insomnia Lorazepam (Ativan) 2 mg PO BEDTIME [facility] Last Admin: 12/03/17 19:38 Dose: 2 mg Metoprolol Tartrate (Lopressor) 50 mg PO BID [facility] Last Admin: 12/04/17 07:41 Dose: 50 mg Non-Formulary Medication (Naloxone/Pentazocine) 1 each PO Q4H PRN PRN Reason: Pain Omeprazole (Omeprazole) 20 mg PO DAILY [facility] Last Admin: 12/04/17 07:42 Dose: 20 mg Nortriptyline 10 Mg (Cap(Own Med)) 0 each PO BEDTIME [facility] Last Admin: 12/03/17 20:07 Dose: 1 each Trazodone HCl (Trazodone) 50 mg PO BEDTIME [facility] Last Admin: 12/03/17 19:38 Dose: 50 mg Discontinued Medications Digoxin (Lanoxin) 250 mcg IVPUSH Q6H [facility] Stop: 12/03/17 18:01 Last Admin: 12/03/17 18:02 Dose: 250 mcg Non-Formulary Medication (Cholecalciferol (Vitamin D3) [Vitamin D3]) 5,000 unit PO DAILY [facility] Non-Formulary Medication (Nortriptyline Hcl [Nortriptyline Hcl]) 40 mg PO BEDTIME [facility] Last Admin: 12/03/17 20:09 Dose: Not Given - Exam General: Alert, Cooperative, No Acute Distress HEENT: Mucous Membr. Moist/[place] Neck: Trachea Midline, No JVD Lungs: Clear to Auscultation, Normal Respiratory Effort Cardiovascular: Regular Rate, Regular Rhythm GI/Abdominal Exam: Soft (Female) Exam: Deferred Back Exam: Normal Inspection Extremities: Normal Inspection, No Pedal Edema Skin: Warm, Dry, Intact Neurological: No New Focal Deficit Psy/Mental Status: Alert, Normal Affect, Normal Mood - Problem List & Annotations (1) Palpitations SNOMED Code(s): 43300377 Code(s): R00.2 - PALPITATIONS Status: Acute Current Visit: Yes (2) Paroxysmal supraventricular tachycardia SNOMED Code(s): 24542754 Code(s): I47.1 - SUPRAVENTRICULAR TACHYCARDIA Status: Acute Current Visit : Yes (3) Sinus tachycardia SNOMED Code(s): 57579231 Code(s): R00.0 - TACHYCARDIA, UNSPECIFIED Status: Acute Current Visit: Yes (4) Hypertension SNOMED Code(s): 73021663 Code(s): I10 - ESSENTIAL (PRIMARY) HYPERTENSION Status: Chronic Priority : Medium Current Visit: No Qualifiers: Hypertension type: essential hypertension Qualified Code(s): I10 - Essential (primary) hypertension Annotation/Comment:: Blood Pressure somewhat elevated in the emergency room on arrival secondary to her pain. Otherwise Stable by history (5) Osteoarthritis SNOMED Code(s): 233971269 Code(s): M19.90 - UNSPECIFIED OSTEOARTHRITIS, UNSPECIFIED SITE Status: Chronic Priority: Medium Current Visit: No Qualifiers: Osteoarthritis location: multiple joints Osteoarthritis type: primary Qualified Code(s): M15.0 - Primary generalized (osteo)arthritis Annotation/Comment:: Stable by history (6) Peptic reflux disease SNOMED Code(s): 89679199 Code(s): K21.9 - GASTRO-ESOPHAGEAL REFLUX DISEASE WITHOUT ESOPHAGITIS Status: Chronic Priority: Medium Current Visit: No Annotation/Comment:: Stable by history with no evidence of other abdominal pain, GI bleed, etc.. Initiate IV Protonix therapy as GI prophylaxis secondary to planned IV Toradol therapy (7) Sjogrens syndrome SNOMED Code(s): 08120317 Code(s): M35.00 - SICCA SYNDROME, UNSPECIFIED Status: Chronic Priority: Medium Current Visit: No Qualifiers: Sjogren's organ involvement: unspecified organ involvement Qualified Code(s ): M35.00 - Sicca syndrome, unspecified Annotation/Comment:: Stable by history - Problem List Review Problem List Initiated/Reviewed/Updated: Yes - My Orders Last 24 Hours: My Active Orders 12/04/17 Breakfast Heart Healthy Diet [DIET] - Plan Plan:: 12/04/17 Preeti Cohen MD Feels better. Less palpitations. Continue telemetry.
[2017-12-04] MEDS ORDERED: methylPREDNISolone Sodium Succinate 40 MG/1 ML SDV IVPUSH ONE (17:00)
[2017-12-04] MEDS: LORazepam 1 MG Tab PO SCH (19:40)
[2017-12-04] MEDS: NORTRIPTYLINE 10 MG PO SCH (19:41)
[2017-12-04] MEDS: traZODone 50 MG Tab PO SCH (19:41)
[2017-12-05 07:47] LABS: CHLORIDE,CL 102 mmol/L (98-107); SODIUM,NA 138 mmol/L (136-145)
[2017-12-05] MEDS: Sodium Chloride 0.9% 10 ML Syringe FLUSH PRN ×2 (08:00→08:21)
[2017-12-05] MEDS ORDERED: methylPREDNISolone Sodium Succinate 40 MG/1 ML SDV IVPUSH ONE (08:00)
[2017-12-05] MEDS: Ciprofloxacin 500 MG Tab PO SCH (08:01)
[2017-12-05] MEDS: Metoprolol Tartrate 50 MG Tab PO SCH (08:02)
[2017-12-05] MEDS: Lactobacillus Rhamnosus GG (Probiotic) Cap PO SCH (08:02)
[2017-12-05] MEDS: Cholecalciferol (Vitamin D3) 1,000 Unit Tab PO SCH (08:03)
[2017-12-05] MEDS: Enoxaparin 30 MG/0.3 ML Syringe SUBCUT SCH (08:03)
[2017-12-05] MEDS: Hydroxychloroquine 200 MG Tab PO SCH (08:03)
[2017-12-05] MEDS: Omeprazole 20 MG Cap.CR PO SCH (08:03)
[2017-12-05] MEDS: amLODIPine 5 MG Tab PO SCH (08:03)
[2017-12-05 14:11] VITALS: BP 132/84
--- NOTE | 2017-12-05 17:19 | PCM.PN ---
- General Info Date of Service: 12/05/17 Functional Status: Reports: Other (pain all over) - Review of Systems General: Reports: Weakness, Fatigue, Malaise HEENT: Reports: No Symptoms Pulmonary: Reports: No Symptoms Cardiovascular: Reports: No Symptoms Gastrointestinal: Reports: No Symptoms Genitourinary: Reports: No Symptoms Musculoskeletal: Reports: Neck Pain, Shoulder Pain, Arm Pain, Hand Pain, Back Pain, Leg Pain, Foot Pain Skin: Reports: Bruising Neurological: Reports: No Symptoms Psychiatric: Reports: No Symptoms - Patient Data Vitals - Most Recent: Last Vital Signs Temp 98.3 F 12/05/17 12:00 Pulse 94 12/05/17 12:00 Resp 18 12/05/17 12:00 BP 132/84 12/05/17 12:00 Pulse Ox 96 12/05/17 07:20 Weight - Most Recent: 199 lb 15.983 oz I&O - Last 24 Hours: Intake & Output 12/05/17 12/05/17 12/05/17 06:59 14:59 22:59 Intake Total 400 1260 Balance 400 1260 Lab Results Last 24 Hours: Laboratory Results - last 24 hr 12/05/17 12/05/17 Range/Units 06:28 06:28 WBC 6.0 (4.0-10.2) K/uL RBC 4.40 (3.77-5.09) M/uL Hgb 13.5 (11.7-15.5) g/dL Hct 40.1 (34.0-46.0) % MCV 91.1 (84.0-98.0) fL MCH 30.7 (28.2-33.3) pg MCHC 33.7 (31.7-36.0) g/dL RDW 12.1 (11.2-14.1) % Plt Count 236 (150-350) K/uL Neut % (Auto) 86.2 H (45.0-80.0) % Lymph % (Auto) 8.7 L (10.0-50.0) % [place] % (Auto) 4.9 (2.0-14.0) % Eos % (Auto) 0.0 (0.0-5.0) % Baso % (Auto) 0.2 (0.0-2.0) % Neut # (Auto) 5.13 (1.40-7.00) K/uL Lymph # (Auto) 0.52 (0.50-3.50) K/uL [place] # (Auto) 0.29 (0.00-1.00) K/uL Eos # (Auto) 0.00 (0.00-0.50) K/uL Baso # (Auto) 0.01 (0.00-0.20) K/uL Sodium 138 (136-145) mmol/L Potassium 3.5 (3.5-5.1) mmol/L Chloride 102 (98-107) mmol/L Carbon Dioxide 28.0 (21.0-32.0) mmol/L BUN 14 (7-18) mg/dL Creatinine 0.76 (0.51-1.17) mg/dL Est Cr Clr Drug Dosing 75.95 mL/min Estimated GFR (MDRD) > 60 mL/min Glucose 129 H (74-106) mg/dL Calcium 9.1 (8.5-10.1) mg/dL Total Bilirubin 0.4 (0.2-1.0) mg/dL AST 19 (15-37) U/L ALT 32 (12-78) U/L Alkaline Phosphatase 72 (46-116) IU/L Troponin I 0.000 (0.000-0.056) ng/mL Total Protein 7.1 (6.4-8.2) g/dL Albumin 3.6 (3.4-5.0) g/dL TSH, Ultra Sensitive 0.588 (0.358-3.740) mIU/mL Med Orders - Current: Current Medications Discontinued Medications Amlodipine Besylate (Norvasc) 5 mg PO BID [facility] Last Admin: 12/05/17 08:03 Dose: 5 mg Cholecalciferol (Vitamin D3) 5,000 units PO DAILY [facility] Last Admin: 12/05/17 08:03 Dose: 5,000 units Ciprofloxacin (Ciprofloxacin Hcl) 500 mg PO BID [facility] Last Admin: 12/05/17 08:01 Dose: 500 mg Digoxin (Lanoxin) 250 mcg IVPUSH Q6H [facility] Stop: 12/03/17 18:01 Last Admin: 12/03/17 18:02 Dose: 250 mcg Enoxaparin Sodium (Lovenox) 30 mg SUBCUT DAILY [facility] Last Admin: 12/05/17 08:03 Dose: 30 mg Hydroxychloroquine Sulfate (Plaquenil) 100 mg PO BID [facility] Last Admin: 12/05/17 08:03 Dose: 100 mg Hydroxyzine Pamoate (Vistaril) 25 mg PO Q4H PRN PRN Reason: Nausea Lactobacillus Rhamnosus (Culturelle) 1 cap PO DAILY [facility] Last Admin: 12/05/17 08:02 Dose: 1 cap Lorazepam (Ativan) 0.5 mg PO DAILY PRN PRN Reason: Insomnia Lorazepam (Ativan) 2 mg PO BEDTIME [facility] Last Admin: 12/04/17 19:40 Dose: 2 mg Methylprednisolone Sodium Succinate (Solu-Medrol) 40 mg IVPUSH ONETIME ONE Stop: 12/04/17 17:01 Last Admin: 12/04/17 17:09 Dose: 40 mg Methylprednisolone Sodium Succinate (Solu-Medrol) 40 mg IVPUSH ONETIME ONE Stop: 12/05/17 08:01 Last Admin: 12/05/17 08:20 Dose: 40 mg Metoprolol Tartrate (Lopressor) 50 mg PO BID [facility] Last Admin: 12/05/17 08:02 Dose: 50 mg Non-Formulary Medication (Cholecalciferol (Vitamin D3) [Vitamin D3]) 5,000 unit PO DAILY [facility] Non-Formulary Medication (Naloxone/Pentazocine) 1 each PO Q4H PRN PRN Reason: Pain Non-Formulary Medication (Nortriptyline Hcl [Nortriptyline Hcl]) 40 mg PO BEDTIME [facility] Last Admin: 12/03/17 20:09 Dose: Not Given Omeprazole (Omeprazole) 20 mg PO DAILY [facility] Last Admin: 12/05/17 08:03 Dose: 20 mg Nortriptyline 10 Mg (Cap(Own Med)) 0 each PO BEDTIME [facility] Last Admin: 12/04/17 19:41 Dose: 4 each Sodium Chloride (Saline Flush) 10 ml FLUSH ASDIRECTED PRN PRN Reason: Keep Vein Open Last Admin: 12/05/17 08:21 Dose: 10 ml Trazodone HCl (Trazodone) 50 mg PO BEDTIME [facility] Last Admin: 12/04/17 19:41 Dose: 50 mg - Exam Quality Assessment: DVT Prophylaxis General: Alert, Cooperative, No Acute Distress HEENT: Pupils Equal, Pupils Reactive, EOMI, Mucous Membr. Moist/[place], Other ( dry mouth) Neck: Trachea Midline, No JVD Lungs: Clear to Auscultation, Normal Respiratory Effort Cardiovascular: Regular Rate, Regular Rhythm, Tachycardia GI/Abdominal Exam: Soft, Non-Tender (Female) Exam: Deferred Back Exam: Normal Inspection Extremities: Normal Inspection, No Pedal Edema Skin: Warm, Dry, Intact, Ecchymosis Neurological: No New Focal Deficit Psy/Mental Status: Alert, Normal Affect, Normal Mood - Problem List & Annotations (1) Palpitations SNOMED Code(s): 54552731 Code(s): R00.2 - PALPITATIONS Status: Acute (2) Paroxysmal supraventricular tachycardia SNOMED Code(s): 23807521 Code(s): I47.1 - SUPRAVENTRICULAR TACHYCARDIA Status: Acute (3) Sinus tachycardia SNOMED Code(s): 12730019 Code(s): R00.0 - TACHYCARDIA, UNSPECIFIED Status: Acute (4) Hypertension SNOMED Code(s): 27535428 Code(s): I10 - ESSENTIAL (PRIMARY) HYPERTENSION Status: Chronic Priority : Medium Qualifiers: Hypertension type: essential hypertension Qualified Code(s): I10 - Essential (primary) hypertension Annotation/Comment:: Blood Pressure somewhat elevated in the emergency room on arrival secondary to her pain. Otherwise Stable by history (5) Osteoarthritis SNOMED Code(s): 689789571 Code(s): M19.90 - UNSPECIFIED OSTEOARTHRITIS, UNSPECIFIED SITE Status: Chronic Priority: Medium Qualifiers: Osteoarthritis location: multiple joints Osteoarthritis type: primary Qualified Code(s): M15.0 - Primary generalized (osteo)arthritis Annotation/Comment:: Stable by history (6) Peptic reflux disease SNOMED Code(s): 12027112 Code(s): K21.9 - GASTRO-ESOPHAGEAL REFLUX DISEASE WITHOUT ESOPHAGITIS Status: Chronic Priority: Medium Annotation/Comment:: Stable by history with no evidence of other abdominal pain, GI bleed, etc.. Initiate IV Protonix therapy as GI prophylaxis secondary to planned IV Toradol therapy (7) Sjogrens syndrome SNOMED Code(s): 00090063 Code(s): M35.00 - SICCA SYNDROME, UNSPECIFIED Status: Chronic Priority: Medium Qualifiers: Sjogren's organ involvement: unspecified organ involvement Qualified Code(s ): M35.00 - Sicca syndrome, unspecified Annotation/Comment:: Stable by history (8) Hypokalemia SNOMED Code(s): 96493360 Code(s): E87.6 - HYPOKALEMIA Status: Acute Priority: High - Problem List Review Problem List Initiated/Reviewed/Updated: Yes - My Orders Last 24 Hours: My Active Orders 12/05/17 05:11 EKG Documentation Completion [RC] ASDIRECTED 12/05/17 14:31 Discontinue Telemetry Monitoring [Cardiac Monitoring Discontinue] [RC] Click to Edit Peripheral IV Discontinue [OM.PC] Routine 12/05/17 14:34 Ready for Discharge [RC] PER UNIT ROUTINE - Plan Plan:: 12/04/17 Preeti Cohen MD Feels better. Less palpitations. Continue telemetry. 12/05/17 Preeti Cohen MD Actually feels crappy but does want to go home. Discussed hypokalemia. Will supplement. She is drinking large amounts of water due to UTI.
--- NOTE | 2017-12-05 17:21 | PCM.DCSUM1 ---
Discharge Summary - Discharge Data Discharge Date: 12/05/17 Discharge Disposition: Home, Self-Care 01 Condition: Good - Discharge Diagnosis/Problem(s) (1) Palpitations SNOMED Code(s): 61993518 ICD Code: R00.2 - PALPITATIONS Status: Acute (2) Paroxysmal supraventricular tachycardia SNOMED Code(s): 67738227 ICD Code: I47.1 - SUPRAVENTRICULAR TACHYCARDIA Status: Acute (3) Sinus tachycardia SNOMED Code(s): 52356768 ICD Code: R00.0 - TACHYCARDIA, UNSPECIFIED Status: Acute (4) Hypertension SNOMED Code(s): 18266176 ICD Code: I10 - ESSENTIAL (PRIMARY) HYPERTENSION Status: Chronic Priority : Medium Problem Details: Blood Pressure somewhat elevated in the emergency room on arrival secondary to her pain. Otherwise Stable by history Qualifiers: Hypertension type: essential hypertension Qualified Code(s): I10 - Essential (primary) hypertension (5) Osteoarthritis SNOMED Code(s): 918630393 ICD Code: M19.90 - UNSPECIFIED OSTEOARTHRITIS, UNSPECIFIED SITE Status: Chronic Priority: Medium Problem Details: Stable by history Qualifiers: Osteoarthritis location: multiple joints Osteoarthritis type: primary Qualified Code(s): M15.0 - Primary generalized (osteo)arthritis (6) Peptic reflux disease SNOMED Code(s): 54784040 ICD Code: K21.9 - GASTRO-ESOPHAGEAL REFLUX DISEASE WITHOUT ESOPHAGITIS Status: Chronic Priority: Medium Problem Details: Stable by history with no evidence of other abdominal pain, GI bleed, etc.. Initiate IV Protonix therapy as GI prophylaxis secondary to planned IV Toradol therapy (7) Sjogrens syndrome SNOMED Code(s): 95567108 ICD Code: M35.00 - SICCA SYNDROME, UNSPECIFIED Status: Chronic Priority: Medium Problem Details: Stable by history Qualifiers: Sjogren's organ involvement: unspecified organ involvement Qualified Code(s ): M35.00 - Sicca syndrome, unspecified (8) Hypokalemia SNOMED Code(s): 89050162 ICD Code: E87.6 - HYPOKALEMIA Status: Acute Priority: High - Patient Instructions Diet: Regular Diet as Tolerated Activity: Rest and Relax Today (No work until Saturday12/11/2017) Driving: Do Not Drive Showering/Bathing: May Shower - Discharge Plan Prescriptions/Med Rec: Potassium Chloride 10 meq PO BID #180 cap.er Home Medications: Home Meds Cholecalciferol (Vitamin D3) [Vitamin D3] 5,000 unit PO DAILY 08/14/14 [History] LORazepam [Ativan] 0.5 mg PO DAILY PRN 08/14/14 [History] LORazepam [Ativan] 2 mg PO BEDTIME 08/14/14 [History] Lactobacillus Combo No.10 [Probiotic] 1 cap PO DAILY 08/14/14 [History] Metoprolol Tartrate [Lopressor] 50 mg PO BID 08/14/14 [History] Nortriptyline HCl 40 mg PO BEDTIME 08/14/14 [History] Omeprazole 20 mg PO DAILY 08/14/14 [History] amLODIPine Besylate [Amlodipine Besylate] 5 mg PO BID 08/14/14 [History] traZODone HCl [Trazodone HCl] 50 mg PO BEDTIME 08/14/14 [History] Hydroxychloroquine [Plaquenil] 100 mg PO BID 04/10/17 [History] Pentazocine HCl/Naloxone HCl [Pentazocine-Naloxone Tablet] 1 each PO Q4H PRN [History] hydrOXYzine Pamoate [Hydroxyzine Pamoate] 25 mg PO Q4H PRN 09/12/17 [History] Potassium Chloride 10 meq PO BID #180 cap.er 12/05/17 [Rx] Patient Handouts: Sinus Tachycardia Forms: ED Department Discharge Referrals: Sheets-Elena Cohen MD [Primary Care Provider] - - Discharge Summary/Plan Comment DC Time >30 min.: No - Patient Data Vitals - Most Recent: Last Vital Signs Temp 98.3 F 12/05/17 12:00 Pulse 94 12/05/17 12:00 Resp 18 12/05/17 12:00 BP 132/84 12/05/17 12:00 Pulse Ox 96 12/05/17 07:20 Weight - Most Recent: 199 lb 15.983 oz I&O - Last 24 hours: Intake & Output 12/05/17 12/05/17 12/05/17 06:59 14:59 22:59 Intake Total 400 1260 Balance 400 1260 Lab Results - Last 24 hrs: Laboratory Results - last 24 hr 02/15/18 02/15/18 Range/Units 06:28 06:28 WBC 6.0 (4.0-10.2) K/uL RBC 4.40 (3.77-5.09) M/uL Hgb 13.5 (11.7-15.5) g/dL Hct 40.1 (34.0-46.0) % MCV 91.1 (84.0-98.0) fL MCH 30.7 (28.2-33.3) pg MCHC 33.7 (31.7-36.0) g/dL RDW 12.1 (11.2-14.1) % Plt Count 236 (150-350) K/uL Neut % (Auto) 86.2 H (45.0-80.0) % Lymph % (Auto) 8.7 L (10.0-50.0) % [place] % (Auto) 4.9 (2.0-14.0) % Eos % (Auto) 0.0 (0.0-5.0) % Baso % (Auto) 0.2 (0.0-2.0) % Neut # (Auto) 5.13 (1.40-7.00) K/uL Lymph # (Auto) 0.52 (0.50-3.50) K/uL [place] # (Auto) 0.29 (0.00-1.00) K/uL Eos # (Auto) 0.00 (0.00-0.50) K/uL Baso # (Auto) 0.01 (0.00-0.20) K/uL Sodium 138 (136-145) mmol/L Potassium 3.5 (3.5-5.1) mmol/L Chloride 102 (98-107) mmol/L Carbon Dioxide 28.0 (21.0-32.0) mmol/L BUN 14 (7-18) mg/dL Creatinine 0.76 (0.51-1.17) mg/dL Est Cr Clr Drug Dosing 75.95 mL/min Estimated GFR (MDRD) > 60 mL/min Glucose 129 H (74-106) mg/dL Calcium 9.1 (8.5-10.1) mg/dL Total Bilirubin 0.4 (0.2-1.0) mg/dL AST 19 (15-37) U/L ALT 32 (12-78) U/L Alkaline Phosphatase 72 (46-116) IU/L Troponin I 0.000 (0.000-0.056) ng/mL Total Protein 7.1 (6.4-8.2) g/dL Albumin 3.6 (3.4-5.0) g/dL TSH, Ultra Sensitive 0.588 (0.358-3.740) mIU/mL Med Orders - Current: Current Medications Discontinued Medications Amlodipine Besylate (Norvasc) 5 mg PO BID [facility] Last Admin: 12/05/17 08:03 Dose: 5 mg Cholecalciferol (Vitamin D3) 5,000 units PO DAILY [facility] Last Admin: 12/05/17 08:03 Dose: 5,000 units Ciprofloxacin (Ciprofloxacin Hcl) 500 mg PO BID [facility] Last Admin: 12/05/17 08:01 Dose: 500 mg Digoxin (Lanoxin) 250 mcg IVPUSH Q6H [facility] Stop: 12/03/17 18:01 Last Admin: 12/03/17 18:02 Dose: 250 mcg Enoxaparin Sodium (Lovenox) 30 mg SUBCUT DAILY [facility] Last Admin: 12/05/17 08:03 Dose: 30 mg Hydroxychloroquine Sulfate (Plaquenil) 100 mg PO BID [facility] Last Admin: 12/05/17 08:03 Dose: 100 mg Hydroxyzine Pamoate (Vistaril) 25 mg PO Q4H PRN PRN Reason: Nausea Lactobacillus Rhamnosus (Culturelle) 1 cap PO DAILY [facility] Last Admin: 12/05/17 08:02 Dose: 1 cap Lorazepam (Ativan) 0.5 mg PO DAILY PRN PRN Reason: Insomnia Lorazepam (Ativan) 2 mg PO BEDTIME [facility] Last Admin: 12/04/17 19:40 Dose: 2 mg Methylprednisolone Sodium Succinate (Solu-Medrol) 40 mg IVPUSH ONETIME ONE Stop: 12/04/17 17:01 Last Admin: 12/04/17 17:09 Dose: 40 mg Methylprednisolone Sodium Succinate (Solu-Medrol) 40 mg IVPUSH ONETIME ONE Stop: 12/05/17 08:01 Last Admin: 12/05/17 08:20 Dose: 40 mg Metoprolol Tartrate (Lopressor) 50 mg PO BID [facility] Last Admin: 12/05/17 08:02 Dose: 50 mg Non-Formulary Medication (Cholecalciferol (Vitamin D3) [Vitamin D3]) 5,000 unit PO DAILY [facility] Non-Formulary Medication (Naloxone/Pentazocine) 1 each PO Q4H PRN PRN Reason: Pain Non-Formulary Medication (Nortriptyline Hcl [Nortriptyline Hcl]) 40 mg PO BEDTIME [facility] Last Admin: 12/03/17 20:09 Dose: Not Given Omeprazole (Omeprazole) 20 mg PO DAILY [facility] Last Admin: 12/05/17 08:03 Dose: 20 mg Nortriptyline 10 Mg (Cap(Own Med)) 0 each PO BEDTIME [facility] Last Admin: 12/04/17 19:41 Dose: 4 each Sodium Chloride (Saline Flush) 10 ml FLUSH ASDIRECTED PRN PRN Reason: Keep Vein Open Last Admin: 12/05/17 08:21 Dose: 10 ml Trazodone HCl (Trazodone) 50 mg PO BEDTIME [facility] Last Admin: 12/04/17 19:41 Dose: 50 mg *Q Meaningful Use (DIS) - VTE *Q VTE Criteria *Q: - Stroke *Q Stroke Criteria *Q: - AMI *Q AMI Criteria *Q:
== END 2017-12-05 15:30 | disposition home or self-care (01) | DRG 310 ==
LOC: LL.ED 11:06 → LL.MS 12:23
PROVIDERS: ADMIT Family Medicine; ATTEND Family Medicine
DX: I47.1 Supraventricular tachycardia (principal); M19.90 Unspecified osteoarthritis, unspecified site; K21.9 Gastro-esophageal reflux disease without esophagitis; M35.00 Sjogren syndrome, unspecified; E87.6 Hypokalemia; H54.7 Unspecified visual loss; K44.9 Diaphragmatic hernia without obstruction or gangrene; I12.9 Hypertensive chronic kidney disease with stage 1 through stage 4 chronic kidney disease, or unspecified chronic kidney disease; N18.9 Chronic kidney disease, unspecified; G89.29 Other chronic pain; F32.9 Major depressive disorder, single episode, unspecified; F41.9 Anxiety disorder, unspecified; Z88.8 Allergy status to other drugs, medicaments and biological substances; Z79.899 Other long term (current) drug therapy
CPT/HCPCS: 36415; 71046; 80048; 80053; 83880; 84443; 84484; 85025; 85610; 93005; 96374; 99285; A9270-GY; J1160; J1650; J2920; J7050

== ENCOUNTER 2020-03-06 06:04 | Emergency (ER) | payer OTHER ==
[2020-03-06] MEDS ORDERED: Acetaminophen 325 MG Tab PO ONE (06:29)
[2020-03-06] MEDS ORDERED: cefTRIAXone 1 GM in Sodium Chloride 0.9% 100 ML IV ONE (06:29)
[2020-03-06] MEDS ORDERED: Levofloxacin/Dextrose 5%-Water 500 MG in Premix Bag 1 BAG IV ONE (06:29)
--- NOTE | 2020-03-06 06:29 | EDM.PDOC ---
ED HPI GENERAL MEDICAL PROBLEM - General Chief Complaint: General Stated Complaint: weakness Time Seen by Provider: 03/06/20 06:20 Source of Information: Reports: Patient, EMS, Old Records ([facility] chart/EMR). Denies: EMS Notes Reviewed (Not available at time of dictation) History Limitations: Reports: Altered Mental Status - History of Present Illness INITIAL COMMENTS - FREE TEXT/NARRATIVE: The patient was brought to the emergency room via ambulance with loan reviewer accompaniment with IV saline lock placed prior to arrival to this facility. She is an extremely poor historian secondary to her current confusion from her current infection. A limited history was obtained from the patient's from the loan reviewer. I also called her at home for further information. The patient has had some progressive cough and possible fever and chills during the last week, however their thermometer is broken and they did not measure her temperature. 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 Her symptoms have apparently worsened during the last 3 days with some mild confusion and moderate generalized weakness since about 22:00 hours yesterday evening. He did accompany her to the bathroom earlier this morning when she became extremely weak and slipped through his arms onto the floor with no history of significant fall or injury. The patient has not had any chest pain /pressure, orthopnea, diaphoresis, paresthesias, recent decreased exercise tolerance, or any other anginal-type symptoms, although she has had persistent problems with heart flutter during the last few weeks with no recent change in her medical therapy. No recent history of abdominal pain, heartburn, nausea, diarrhea, melena, gross hematochezia, or any food intolerance, including fatty foods, etc.. No apparent history of UTI symptoms, including gross hematuria, colic, foul-smelling urine, etc. The patient also has not had any recent wheezing, dyspnea, etc.. No history of recent headaches, visual changes, diplopia, or other change in neurological status. Patient denies any pain currently. She did take her medications yesterday evening by her 's history with no morning medications taken to this point. Onset: Gradual, Unknown/Unsure, Other (As above) Duration: Getting Worse Location: Reports: Other (No pain) Severity: Moderate (Confusion) Improves with: Reports: None Worsens with: Reports: None Context: Reports: Other (As above). Denies: Sick Contact, Trauma Associated Symptoms: Reports: Confusion, Cough, Fever/Chills. 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 - Related Data Allergies Allergy/AdvReac Type Severity Reaction Status Date / Time acetaminophen Allergy Cannot Verified 09/12/17 02:32 [From Tylenol Sinus Remember Congestion Pain] chlorpheniramine Allergy Cannot Verified 09/12/17 02:32 [From Tylenol Sinus Remember Congestion Pain] codeine Allergy Itching Verified 09/12/17 02:32 dextrose [From Metamucil] Allergy Difficulty Verified 09/12/17 02:32 Breathing, swelling around eyes diphenhydramine HCl Allergy Hyperactivi Verified 09/12/17 02:32 [From Benadryl] ty estrogens, conjugated Allergy Hives Verified 09/12/17 02:32 [From Premarin] estropipate [From Ogen 2.5] Allergy Hives Verified 09/12/17 02:32 guaifenesin Allergy Cannot Verified 09/12/17 02:32 [From Tylenol Sinus Remember Congestion Pain] hydrochlorothiazide Allergy tongue Verified 09/12/17 02:32 swelling hydrocodone Allergy Headache Verified 09/12/17 02:32 influenza virus vaccine, Allergy rash, Verified 09/12/17 02:32 specific difficulty [Influenza Virus breathing Vacc,Specific] loratadine [From Claritin] Allergy Other Verified 09/12/17 02:32 morphine Allergy Confusion, Verified 09/12/17 02:32 itching, difficulty breathing oxycodone Allergy Cannot Verified 09/12/17 02:32 Remember phenylephrine Allergy Cannot Verified 09/12/17 02:32 [From Tylenol Sinus Remember Congestion Pain] psyllium husk Allergy swelling Verified 09/12/17 02:32 [From Metamucil] around eyes, difficulty breathing psyllium seed Allergy swelling Verified 09/12/17 02:32 [From Metamucil] around eyes, dfiiculty breathing sucrose [From Metamucil] Allergy swelling Verified 09/12/17 02:32 around eyes, difficulty breathing temazepam [Temazepam] Allergy Hyperactivi Verified 09/12/17 02:32 ty tramadol HCl [From Ultram] Allergy Confusion Verified 09/12/17 02:32 vitamin E (d-alpha Allergy Difficulty Verified 09/12/17 02:32 tocopherol) Breathing [vitamin E] bandaids Allergy Rash Uncoded 09/12/17 02:32 Home Meds: Home Meds Cholecalciferol (Vitamin D3) [Vitamin D3] 5,000 unit PO DAILY 08/14/14 [History] LORazepam [Ativan] 0.5 mg PO DAILY PRN 08/14/14 [History] LORazepam [Ativan] 2 mg PO BEDTIME 08/14/14 [History] Lactobacillus Combo No.10 [Probiotic] 1 cap PO DAILY 08/14/14 [History] Metoprolol Tartrate [Lopressor] 50 mg PO BID 08/14/14 [History] Nortriptyline HCl 40 mg PO BEDTIME 08/14/14 [History] Omeprazole 20 mg PO DAILY 08/14/14 [History] amLODIPine Besylate [Amlodipine Besylate] 5 mg PO BID 08/14/14 [History] traZODone HCl [Trazodone HCl] 50 mg PO BEDTIME 08/14/14 [History] Hydroxychloroquine [Plaquenil] 100 mg PO BID 04/10/17 [History] Pentazocine HCl/Naloxone HCl [Pentazocine-Naloxone Tablet] 1 each PO Q4H PRN [History] hydrOXYzine pamoate [Hydroxyzine Pamoate] 25 mg PO Q4H PRN 09/12/17 [History] Potassium Chloride 10 meq PO BID #180 cap.er 12/05/17 [Rx] Past Medical History HEENT History: Reports: Impaired Vision, Sinusitis, Other (See Below). Denies: Allergic Rhinitis, Cataract, Glaucoma, Hard of Hearing, Macular Degeneration, Otitis Media, Retinal Detachment Other HEENT History: Chronic intermittent sinusitis, patient wears glasses Cardiovascular History: Reports: Arrhythmia, Hypertension, Other (See Below). Denies: Afib, Aneurysm, Blood Clots/VTE/DVT, CAD, Cardiomyopathy, Heart Failure , Heart Murmur, High Cholesterol, [place], PTCA, PVD, Stents, Syncope Other Cardiovascular History: Hypertension with probable mild borderline hypertensive cardiomegaly by x-ray, history of fatty liver with patient unaware of her cholesterol status Respiratory History: Reports: Bronchitis, Recurrent, Intubation, Previous, Pneumonia, Recurrent, Pulmonary Fibrosis, Other (See Below). Denies: Asthma, COPD, Intubation, Difficult, PE, Pneumothorax, Sleep Apnea, TB Other Respiratory History: Pulmonary fibrosis by chest x-ray, benign right lower lobe pulmonary nodule diagnosed on 07/21/09 with multiple negative follow- up CT scans as below Gastrointestinal History: Reports: Cholelithiasis, Fatty Liver, Gastritis, GERD , Hemorrhoids, Hiatal Hernia, PUD, Other (See Below). Denies: Celiac Disease, Chronic Constipation, Chronic Diarrhea, Colon Polyp, Fecal Incontinence, Hepatitis, Inflammatory Bowel Disease, Irritable Bowel Syndrome, Jaundice, Pancreatitis Other Gastrointestinal History: Gastric ulcer in her 20s Genitourinary History: Reports: Chronic Renal Insuffiency, Hydronephrosis, Renal Calculus, UTI, Recurrent, Other (See Below). Denies: Acute Renal Failure , STD, Urinary Incontinence Other Genitourinary History: History of recurrent urolithiasis with bilateral nephrolithiasis by CT scans with initial episode in 2003, last episode on with 5 millimeters distal right sided urolithiasis with secondary hydronephrosis and additional right pelvic nephrolithiasis by CT scan as below. 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 SAB 2 during the first trimester not requiring any procedures. Otherwise, Full term without complications during pregnancies or deliveries. Musculoskeletal History: Reports: Arthritis, Back Pain, Chronic, Fracture, Neck Pain, Chronic, Osteoarthritis, Other (See Below). Denies: Amputation, Gout, RA Other Musculoskeletal History: Sjogren's syndrome, right foot fracture in about 2003 Neurological History: Reports: Headaches, Chronic, Migraines. Denies: Cerebral Aneurysms, Concussion, CVA, Head Trauma, MS, Neuropathy, Peripheral, Parkinson's , Seizure, TIA Psychiatric History: Reports: Anxiety, Depression. Denies: Abuse, Victim of, ADD, ADHD, Addiction, Alzheimers Disease, Dementia, Psych Hospitalization(s), PTSD, Suicide Attempt, Suicidal Ideation Endocrine/Metabolic History: Reports: Hypokalemia, Multinodular Thyroid, Obesity /BMI 30+, Other (See Below). Denies: Diabetes, Gestational, Diabetes, Type I, Diabetes, Type II, Diabetes Mellitus, Type 3c, Hypothyroidism, IDDM, Osteopenia , Osteoporosis Other Endocrine/Metabolic History: Benign bilateral thyroid nodules. Hyponatremia. Hematologic History: Reports: None. Denies: Anemia, Blood Transfusion(s), Iron Deficiency Immunologic History: Reports: Other (See Below). Denies: AIDS, HIV, SLE Other Immunologic History: Sjogren's syndrome Oncologic (Cancer) History: Reports: None. Denies: Basal Cell Carcinoma, Breast , Cervix, Colon, Hodgkin's Lymphoma, Leukemia, Lymphoma, Malignant Melanoma, Non -Hodgkin's Lymphoma, Ovarian, Squamous Cell Carcinoma, Thyroid, Uterine Dermatologic History: Reports: Angiodema, Other (See Below). Denies: Eczema, Psoriasis Other Dermatologic History: history of chronic intermittent idiopathic angioedema - Infectious Disease History Infectious Disease History: Reports: None. Denies: C-Difficile, Chicken Pox, Measles, Meningitis, Mononucleosis, MRSA, Mumps, Pertussis (Whooping Cough), Rheumatic Fever, Rubella, Scarlet Fever, Shingles, TB, VRE - Past Surgical History Head Surgeries/Procedures: Reports: None HEENT Surgical History: Reports: Oral Surgery, Other (See Below). Denies: Adenoidectomy, Eye Surgery, Laser Surgery, Myringotomy w Tube(s), Naso-Sinus Surgery, Tonsillectomy Other HEENT Surgeries/Procedures: [place] teeth extraction 4 in her 30s Cardiovascular Surgical History: Reports: None. Denies: Varicose Respiratory Surgical History: Reports: None. Denies: Thoracentesis GI Surgical History: Reports: Appendectomy, Colonoscopy, EGD, Other (See Below) . Denies: Cholecystectomy, Hernia, Abdominal, Hernia, Inguinal, Hernia Repair/ Other, Polypectomy Other GI Surgeries/Procedures: Concomitant appendectomy with her hysterectomy as below in 1997, EGD in her 20s, last colonoscopy on 10/05/10 with previous evaluation on 08/01/06, laparoscopic abdominal exploratory procedure on 04/10/04 Female Surgical History: Reports: Breast Biopsy, Cystoscopy, Hysterectomy, Salpingo-Oophorectomy, Tubal Ligation, Other (See Below). Denies: D&C, Dilitation & Evacuation Other Female Surgeries/Procedures: Excision of benign milk ducts/papilloma from the left breast in her 30s, complete hysterectomy with bilateral salpingo- oophorectomy in 1997 secondary to uterine fibroids and dysfunctional uterine bleeding, bilateral tubal ligation in 1983, cystoscopy with basket procedure with no stones found on 11/22/03 Endocrine Surgical History: Reports: None. Denies: Thyroid Biopsy Neurological Surgical History: Reports: None. Denies: C-Spine, Discectomy, Laminectomy, Lumbar Spine, Sacral Spine, Spinal Fusion, Thoracic Spine, Vertebroplasty Musculoskeletal Surgical History: Reports: None. Denies: Arthroscopic Procedure , Carpal Tunnel, Ganglion Cyst, Joint Replacement, ORIF, Shoulder Surgery Oncologic Surgical History: Reports: None Dermatological Surgical History: Reports: Other (See Below) Other Dermatological Surgeries/Procedures: Excision of benign venous thrombosis of the right cervical region at about age 9. - Past Imaging History Past Imaging History: Reports: Cardiac Echo (12/10/17 with ejection fraction of 5560 percent.), CAT Scan (CT scan of the abdomen and pelvis on 09/12/17. Multiple CTs of the chest both with and without IV contrast with last evaluation with IV contrast on 09/28/13 and initial evaluation on 07/21/09, last CT scan of the abdomen and pelvis with IV contrast on 08/14/[address] scan of the abdomen and pelvis on 04/10/17 with previous evaluation on 08/30/06, CT of the sinuses on 03/31/12, CT of the neck with soft tissue procedure and concomitant maxillofacial CT scan on 06/28/10), Mammogram (Last mammogram on .), Stress Testing (Negative Cardiolite stress test on 10/25/06 with ejection fraction of 59%), Ultrasound (Thyroid ultrasound on 03/23/13 and 10/06/12, right thigh soft tissue ultrasound on 07/10/11, right upper quadrant abdominal ultrasound on 07/14/09, abdominal ultrasound on 08/26/06), Upper GI X-Ray/Series ( Including small bowel series on 08/26/06) Social & Family History - Family History HEENT: Reports: Macular Degeneration, Other (See Below). Denies: Glaucoma, Retinal Detachment Other HEENT Family History: Maternal grandmother with macular degeneration Cardiac: Reports: Bypass, CAD, High Cholesterol, Hypertension, [place], Other (See Below). Denies: Afib, Aneurysm, Arrhythmia, Blood Clots/VTE/DVT, Heart Failure , Heart Murmur, PVD/COD, Syncope Other Cardiac Family History: Father with history of [place] in his 60s with CABG 4 , hypertension in mother, sister, and maternal grandmother, paternal uncles 6 with MIs and CABGs in her 60s, father and paternal uncles with heart disease and hyperlipidemia as above Respiratory: Reports: COPD, Other (See Below). Denies: Asthma, PE, Pneumothorax , Sleep Apnea Other Respiratory Family Hisory: Paternal aunts 6 with COPD GI: Reports: None. Denies: Celiac Disease, Cholelithiasis, Colon Polyps, GERD, GI bleed, Inflammatory Bowel Disease, Irritable Bowel Syndrome, PUD : Reports: Renal Disease/Insufficiency, Other (See Below). Denies: Renal Calculus Other Family History: Sister with SLE with secondary renal insufficiency OBGYN: Reports: None. Denies: Endometriosis, Recurrent Spontaneous Musculoskeletal: Reports: SLE, Other (See Below). Denies: Gout, RA Other Musculoskeletal Family History: Sister with SLE Neurological: Reports: None. Denies: Alzheimers Disease, Cerebral Aneurysms, CVA, Dementia, Migraines, MS, Parkinson's, Seizure, TIA Psychiatric: Reports: None. Denies: Abuse, Victim of, ADD, ADHD, Anxiety, Depression, Psych Hospitalization(s), Psychosis, PTSD, Suicide Attempt Endocrine/Metabolic: Reports: Diabetes, Type I, Diabetes, type II, Hyperthyroidism, Hypothyroidism, IDDM, Other (See Below). Denies: Diabetes, Gestational, Diabetes Mellitus, Type 3c Other Endocrine/Metabolic Family History: Sister with juvenile IDDM, father with hyperthyroidism, maternal grandmother with hypothyroidism and goiter, paternal aunt 1 with IDDM, 2 other paternal aunts with AODM Hematologic: Reports: Anemia, B12 Deficiency, SLE, Other (See Below) Other Hematologic Family History: Sister with lupus, mother with vitamin B-12 deficiency anemia Immunologic: Reports: SLE, Other (See Below). Denies: AIDS, HIV Other Immunologic Family History: Sister with lupus Dermatologic: Reports: None. Denies: Angiodema, Psoriasis Oncologic: Reports: Colon, Other (See Below). Denies: Cervix, Hodgkin's Lymphoma, Leukemia, Lymphoma, Non-Hodgkin's Lymphoma, Ovarian, Skin, Uterine Other Oncologic Family History: Mother with history of colon cancer at age 50, father with fatal small cell lung cancer at age 63 with history of tobacco use and history of asbestos exposure - Tobacco Use Smoking Status *Q: Never Smoker Tobacco Use Within Last Twelve Months: No Used Tobacco, but Quit: No Smoking Cessation Information Provided To Patient: No Second Hand Smoke Exposure: No Second Hand Smoke Education Provided: No - Caffeine Use Caffeine Use: Reports: Soda - Living Situation & Occupation Living situation: Reports: (1979, 2 children), with Family (With ) 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 ED EXAM, GENERAL - Physical Exam Exam: See Below Exam Limited By: Altered Mental Status General Appearance: No Apparent Distress, Other (Confused) Eye Exam: Bilateral Eye: EOMI, Normal Fundi, Normal Inspection (No nystagmus. Patient is wearing glasses), PERRL Ears: Normal External Exam, Normal Canal, Hearing Grossly Normal, Normal TMs Nose: Normal Inspection, Normal Mucosa, No Blood Throat/Mouth: Normal Lips, Normal Teeth, Normal Gums, Normal Voice. No: Normal Oropharynx (Extremely dry oral mucosa), No Airway Compromise, Dysphagia, Inflammation, Perioral Cyanosis Head: Atraumatic, Normocephalic. No: Facial Swelling, Facial Tenderness, Sinus Tenderness Neck: Normal Inspection, Supple, Non-Tender, Full Range of Motion. No: Carotid Bruit, Lymphadenopathy (L), Lymphadenopathy (R), Thyromegaly Respiratory/Chest: No Respiratory Distress, Lungs Clear, Normal Breath Sounds, No Accessory Muscle Use, Chest Non-Tender. No: Pleural Rub, Retractions Cardiovascular: Normal Peripheral Pulses, No Edema, No Gallop, No JVD, No Murmur , No Rub, Tachycardia (Regular rhythm). No: Gallop/S3, Gallop/S4, Friction Rub Peripheral Pulses: 2+: Radial (L), Radial (R), Dorsalis Pedis (L), Dorsalis Pedis (R) GI/Abdominal: Normal Bowel Sounds, Soft, Non-Tender, No Organomegaly, No Distention, No Abnormal Bruit, No Mass, Pelvis Stable, Other. No: Guarding (Female) Exam: Deferred Rectal (Female) Exam: Deferred Back Exam: Normal Inspection, Full Range of Motion. No: CVA Tenderness (L), CVA Tenderness (R), Muscle Spasm Extremities: Normal Inspection, Normal Range of Motion, Non-Tender, No Pedal Edema, Normal Capillary Refill. No: Ignacio's Sign Neurological: Alert, CN II-XII Intact, Normal Cognition, Normal Gait, Normal Reflexes (Negative Babinski's), No Motor/Sensory Deficits, Confused (Oriented to month and person only with persistent moderate confusion), Disoriented (As above) Psychiatric: Normal Affect, Normal Mood Skin Exam: Warm, Dry, Intact, Normal Color, No Rash. No: Diaphoretic, Ecchymosis, Petechiae, Wound/Incision Lymphatic: No Adenopathy EKG INTERPRETATION EKG Date: 03/06/20 Time: 07:14 Rhythm: Other (Sinus tachycardia) Rate (Beats/Min): 120 Mangum: RAD-Right Mangum Deviation (Extended right cardiac axis, which is changed from her previous extended left cardiac axis) P-Wave: Enlarged (Moderate diffuse biphasic P waves) QRS: Wide (0.09 seconds representing repolarization changes) ST-T: Other (Stable borderline T-wave inversion in leads 3 and aVF with new T- wave inversion in leads V1 through V5) QT: Normal [place]/PQ Interval: 0.16 seconds Comparison: Change From Previous EKG (As above since last EKG on 12/03/17.) EKG Interpretation Comments: 1. New anterior wall cardiac ischemia 2. Sinus tachycardia 3. Left atrial enlargement 4. Cardiac axis shift Course - Vital Signs Last Recorded V/S: Last Vital Signs Temp 37.8 C 03/06/20 08:32 Pulse 112 H 03/06/20 09:06 Resp 20 03/06/20 09:06 BP 138/68 03/06/20 09:06 Pulse Ox 96 03/06/20 09:06 Vital Signs - 24 hr 03/06/20 03/06/20 03/06/20 06:29 06:35 07:14 Temperature [ 39.6 C H Axillary] Temperature [ 39.2 C H Oral] Pulse, 122 H Peripheral [ Apical] Pulse, 125 H Peripheral [ Right Pulse Oximetry] Respiratory 24 H 24 H Rate Blood Pressure 140/92 H 137/88 122/71 [Right Upper Arm] O2 Sat by Pulse 93 L 93 L Oximetry O2 Sat by Pulse Oximetry [ Nasal Cannula] 03/06/20 03/06/20 03/06/20 07:22 07:38 07:53 Temperature [ Axillary] Temperature [ Oral] Pulse, 120 H 116 H Peripheral [ Apical] Pulse, Peripheral [ Right Pulse Oximetry] Respiratory 22 H 21 H Rate Blood Pressure 123/66 121/76 [Right Upper Arm] O2 Sat by Pulse 93 L 92 L Oximetry O2 Sat by Pulse 97 Oximetry [ Nasal Cannula] 03/06/20 03/06/20 03/06/20 07:54 08:10 08:20 Temperature [ Axillary] Temperature [ Oral] Pulse, 115 H 116 H 117 H Peripheral [ Apical] Pulse, Peripheral [ Right Pulse Oximetry] Respiratory 26 H 25 H 20 Rate Blood Pressure 113/79 143/67 H 115/70 [Right Upper Arm] O2 Sat by Pulse 97 96 95 Oximetry O2 Sat by Pulse Oximetry [ Nasal Cannula] 03/06/20 03/06/20 03/06/20 08:32 08:48 09:06 Temperature [ Axillary] Temperature [ 37.8 C Oral] Pulse, 114 H 112 H Peripheral [ Apical] Pulse, Peripheral [ Right Pulse Oximetry] Respiratory 25 H 20 Rate Blood Pressure 106/72 138/68 [Right Upper Arm] O2 Sat by Pulse 96 96 Oximetry O2 Sat by Pulse Oximetry [ Nasal Cannula] - Orders/Labs/Meds Orders: Active Orders 24 hr Category Date Time Status Cardiac Monitoring [RC] CONTINUOUS Care 03/06/20 06:29 Active EKG Documentation Completion [RC] ASDIRECTED Care 03/06/20 06:30 Active Oxygen Therapy, ED [RC] PRN Care 03/06/20 06:29 Active Peripheral IV Care [RC] . DIRECTED Care 03/06/20 06:30 Active Peripheral IV Care [RC] . DIRECTED Care 03/06/20 08:15 Active Pulse Oximetry [RC] CONTINUOUS Care 03/06/20 06:29 Active Up With Assistance [RC] ASDIRECTED Care 03/06/20 06:29 Active Nothing Per Oral Diet [DIET] Diet 03/06/20 Breakfast Active Chest 1V Frontal [CR] Stat Exams 03/06/20 06:29 Taken Head wo Cont [CT] Stat Exams 03/06/20 06:53 Taken CK W CKMB [CHEM] Stat Lab 03/06/20 06:50 Results COMPREHENSIVE METABOLIC PN,CMP [CHEM] Stat Lab 03/06/20 06:50 Results CORONAVIRUS, COVID19 IGG AB, S [REF] Urgent Lab 03/06/20 06:40 Received CULTURE BLOOD [BC] Stat Lab 03/06/20 06:50 Received CULTURE BLOOD [BC] Stat Lab 03/06/20 07:05 Received CULTURE SPUTUM + SMEAR [RM] Urgent Lab 03/06/20 06:29 Ordered CULTURE STREP A CONFIRMATION [RM] Stat Lab 03/06/20 06:40 Results CULTURE URINE [RM] Routine Lab 03/06/20 06:35 Received MAGNESIUM [CHEM] Stat Lab 03/06/20 06:50 Results PRO B-TYPE NATRIUR PEPT,BNPPRO [CHEM] Stat Lab 03/06/20 06:50 Results STREP SCRN A RAPID W CULT CONF [RM] Stat Lab 03/06/20 06:40 Results TROPONIN I [CHEM] Stat Lab 03/06/20 06:50 Results TSH ULTRASENSITIVE [CHEM] Stat Lab 03/06/20 06:50 Results Heparin Sodium/0.45% NaCl [Heparin 25,000 Units in 1/2 Med 03/06/20 08:00 Active NS 500 ML] 500 ml IV TITRATE Sodium Chloride 0.9% [Normal Saline] 1,000 ml Med 03/06/20 08:15 Active IV ASDIRECTED Sodium Chloride 0.9% [Saline Flush] Med 03/06/20 06:29 Active 10 ml FLUSH ASDIRECTED PRN Sodium Chloride 0.9% [Saline Flush] Med 03/06/20 08:14 Active 10 ml FLUSH ASDIRECTED PRN Blood Culture x2 Reflex Set [OM.PC] Stat Oth 03/06/20 06:29 Ordered Obtain Past Medical Record [OM.PC] Stat Oth 03/06/20 06:29 Active Peripheral IV Insertion Adult [OM.PC] Routine Ot 03/06/20 08:13 Ordered Peripheral IV Insertion Adult [OM.PC] Stat Oth 03/06/20 06:29 Ordered Resuscitation Status Routine Resus Stat 03/06/20 06:29 Ordered Medication Orders Heparin Sodium/Sodium Chloride (Heparin 25,000 Units In 1/2 Ns 500 Ml) 500 mls @ 35.924 mls/hr IV TITRATE BRIGID; Protocol Last Admin: 03/06/20 08:20 Dose: 18 units/kg/hr, 35.924 mls/hr Sodium Chloride (Normal Saline) 1,000 mls @ 80 mls/hr IV ASDIRECTED BRIGID Last Admin: 03/06/20 08:10 Dose: 80 mls/hr Sodium Chloride (Saline Flush) 10 ml FLUSH ASDIRECTED PRN PRN Reason: Keep Vein Open Last Admin: 03/06/20 08:45 Dose: 10 ml Admin: 03/06/20 07:39 Dose: 10 ml Sodium Chloride (Saline Flush) 10 ml FLUSH ASDIRECTED PRN PRN Reason: Keep Vein Open Labs: Laboratory Tests 03/06/20 03/06/20 03/06/20 Range/Units 06:35 06:50 06:50 WBC 8.4 (4.0-10.2) K/uL RBC 4.70 (3.77-5.09) M/uL Hgb 14.1 (11.7-15.5) g/dL Hct 41.0 (34.0-46.0) % MCV 87.2 (84.0-98.0) fL MCH 30.0 (28.2-33.3) pg MCHC 34.4 (31.7-36.0) g/dL RDW 12.2 (11.2-14.1) % Plt Count 212 (150-350) K/uL Neut % (Auto) 74.4 (45.0-80.0) % Lymph % (Auto) 11.0 (10.0-50.0) % Blaine % (Auto) 13.9 (2.0-14.0) % Eos % (Auto) 0.0 (0.0-5.0) % Baso % (Auto) 0.7 (0.0-2.0) % Neut # (Auto) 6.25 (1.40-7.00) K/uL Lymph # (Auto) 0.92 (0.50-3.50) K/uL Blaine # (Auto) 1.17 H (0.00-1.00) K/uL Eos # (Auto) 0.00 (0.00-0.50) K/uL Baso # (Auto) 0.06 (0.00-0.20) K/uL PT 10.4 (9.5-12.0) SEC INR 1.0 APTT 21.2 L (24.5-32.8) SEC D-Dimer, Quantitative (0-400) ng/mL Carbon Dioxide (21.0-32.0) mmol/L BUN (7-18) mg/dL Creatinine (0.51-1.17) mg/dL Est Cr Clr Drug Dosing mL/min Estimated GFR (MDRD) mL/min Glucose (74-106) mg/dL Lactic Acid (0.4-2.0) mmol/L Calcium (8.5-10.1) mg/dL Magnesium (1.8-2.4) mg/dL Total Bilirubin (0.2-1.0) mg/dL AST (15-37) U/L ALT (12-78) U/L Alkaline Phosphatase (46-116) IU/L Creatine Kinase (26-308) U/L Creatine Kinase Index (0.0-2.5) % CK-MB (CK-2) (0.00-3.60) ng/mL Troponin I (0.000-0.056) ng/mL NT-Pro-B Natriuret Pep (0-125) pg/mL Total Protein (6.4-8.2) g/dL Albumin (3.4-5.0) g/dL TSH, Ultra Sensitive (0.358-3.740) mIU/mL Specimen Type Urinqcath Urine Color Yellow Urine Appearance Cloudy Urine pH 6.0 (5.0-9.0) Ur Specific Lennox >= 1.030 (1.005-1.030) Urine Protein 100 H (NEGATIVE) mg/dL Urine Glucose (UA) Negative (NEGATIVE) mg/dL Urine Ketones Trace H (NEGATIVE) mg/dL Urine Occult Blood Moderate H (NEGATIVE) Urine Nitrite Positive H (NEGATIVE) Urine Bilirubin Negative (NEGATIVE) Urine Urobilinogen 0.2 (0.2-1.0) E.U./dL Ur Leukocyte Esterase Negative (NEGATIVE) Urine RBC 0-5 /HPF Urine WBC 20-30 H /HPF Ur Epithelial Cells Moderate H /LPF Urine Bacteria Many H (NONE TO FEW) /HPF Urine Mucus Few H (NEGATIVE) /LPF 03/06/20 03/06/20 03/06/20 Range/Units 06:50 06:50 06:50 WBC (4.0-10.2) K/uL RBC (3.77-5.09) M/uL Hgb (11.7-15.5) g/dL Hct (34.0-46.0) % MCV (84.0-98.0) fL MCH (28.2-33.3) pg MCHC (31.7-36.0) g/dL RDW (11.2-14.1) % Plt Count (150-350) K/uL Neut % (Auto) (45.0-80.0) % Lymph % (Auto) (10.0-50.0) % Blaine % (Auto) (2.0-14.0) % Eos % (Auto) (0.0-5.0) % Baso % (Auto) (0.0-2.0) % Neut # (Auto) (1.40-7.00) K/uL Lymph # (Auto) (0.50-3.50) K/uL Blaine # (Auto) (0.00-1.00) K/uL Eos # (Auto) (0.00-0.50) K/uL Baso # (Auto) (0.00-0.20) K/uL PT (9.5-12.0) SEC INR APTT (24.5-32.8) SEC D-Dimer, Quantitative 1470 H (0-400) ng/mL Carbon Dioxide 27.2 (21.0-32.0) mmol/L BUN 23 H (7-18) mg/dL Creatinine 1.07 (0.51-1.17) mg/dL Est Cr Clr Drug Dosing 52.34 mL/min Estimated GFR (MDRD) 52 mL/min Glucose 104 (74-106) mg/dL Lactic Acid 1.3 (0.4-2.0) mmol/L Calcium 8.9 (8.5-10.1) mg/dL Magnesium 1.9 (1.8-2.4) mg/dL Total Bilirubin 0.9 (0.2-1.0) mg/dL AST 21 (15-37) U/L ALT 24 (12-78) U/L Alkaline Phosphatase 63 (46-116) IU/L Creatine Kinase 170 (26-308) U/L Creatine Kinase Index 0.4 (0.0-2.5) % CK-MB (CK-2) 0.70 (0.00-3.60) ng/mL Troponin I 0.026 (0.000-0.056) ng/mL NT-Pro-B Natriuret Pep 246 H (0-125) pg/mL Total Protein 7.1 (6.4-8.2) g/dL Albumin 3.8 (3.4-5.0) g/dL TSH, Ultra Sensitive 1.342 (0.358-3.740) mIU/mL Specimen Type Urine Color Urine Appearance Urine pH (5.0-9.0) Ur Specific Lennox (1.005-1.030) Urine Protein (NEGATIVE) mg/dL Urine Glucose (UA) (NEGATIVE) mg/dL Urine Ketones (NEGATIVE) mg/dL Urine Occult Blood (NEGATIVE) Urine Nitrite (NEGATIVE) Urine Bilirubin (NEGATIVE) Urine Urobilinogen (0.2-1.0) E.U./dL Ur Leukocyte Esterase (NEGATIVE) Urine RBC /HPF Urine WBC /HPF Ur Epithelial Cells /LPF Urine Bacteria (NONE TO FEW) /HPF Urine Mucus (NEGATIVE) /LPF Note problems with chemistry machine with electrolyte values to be submitted JONNA once available Blood cultures 2 were collected Quick catheter urine specimen set up for culture and sensitivity COVID-19 specimen was collected Microbiology 03/06/20 06:40 Group A Streptococcus Rapid Screen - Final Throat NEGATIVE STREP A SCREEN REFERENCE RANGE: NEGATIVE Meds: Medications Generic Name Dose Route Start Last Admin Trade Name Freq PRN Reason Stop Dose Admin Heparin Sodium/Sodium Chloride 500 mls @ 35.924 mls/hr 03/06/20 08:00 08:20 Heparin 25,000 Units In 1/2 Ns 500 Ml IV 18 units/kg/hr TITRATE BRIGID 35.924 mls/hr Administration Protocol 18 UNITS/KG/HR Sodium Chloride 1,000 mls @ 80 mls/hr 03/06/20 08:15 03/06/20 08:10 Normal Saline IV 80 mls/hr ASDIRECTED BRIGID Administration Sodium Chloride 10 ml 03/06/20 06:29 03/06/20 08:45 Saline Flush FLUSH 10 ml ASDIRECTED PRN Administration Keep Vein Open Sodium Chloride 10 ml 03/06/20 08:14 Saline Flush FLUSH ASDIRECTED PRN Keep Vein Open Discontinued Medications Generic Name Dose Route Start Last Admin Trade Name Freq PRN Reason Stop Dose Admin Acetaminophen 650 mg 03/06/20 06:29 03/06/20 06:51 Tylenol PO 03/06/20 06:30 650 mg ONETIME ONE Administration Famotidine 40 mg 03/06/20 08:41 03/06/20 08:45 Pepcid IVPUSH 03/06/20 08:42 40 mg ONETIME ONE Administration Heparin Sodium (Porcine) 4,000 units 03/06/20 07:58 03/06/20 08:23 Heparin Sodium IVPUSH 03/06/20 07:59 Not Given ONETIME ONE Heparin Sodium (Porcine) 5,000 units 03/06/20 08:04 03/06/20 08:18 Heparin Sodium IVPUSH 03/06/20 08:05 5,000 units .BOLUS ONE Administration Ceftriaxone Sodium 1 gm/ 100 mls @ 200 mls/hr 03/06/20 06:29 03/06/20 06:51 Sodium Chloride IV 03/06/20 06:58 200 mls/hr ONETIME ONE Administration Levofloxacin/Dextrose 500 mg/ 100 mls @ 100 mls/hr 03/06/20 06:29 03/06/20 06 :52 Premix IV 03/06/20 07:28 100 mls/hr ONETIME ONE Administration Sodium Chloride 1,000 mls @ 999 mls/hr 03/06/20 06:44 03/06/20 06:51 Normal Saline IV 03/06/20 07:44 999 mls/hr .BOLUS ONE Administration - Radiology Interpretation Free Text/Narrative:: 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 Chest x-ray, portable, shows evidence of some mild right middle lobe atelectasis and mild prominence of the proximal aortic arch with no evidence of cardiomegaly, CHF, pulmonary infiltrates, pneumothorax, etc. CT of the head without contrast was negative for acute CVA, hemorrhage, etc. Despite previous request preliminary verbal report was not received from the radiologist at [facility]. Departure - Departure Time of Disposition: :20 Disposition: DC/Tfer to Acute Hospital 02 Condition: Fair Clinical Impression: Sinus tachycardia, PVCs (premature ventricular contractions), Confusion, Elevated d-dimer, Dehydration, Peptic reflux disease UTI (urinary tract infection) Qualifiers: Urinary tract infection type: acute cystitis Hematuria presence: without hematuria Qualified Code(s): N30.00 - Acute cystitis without hematuria Hypertension Qualifiers: Hypertension type: essential hypertension Qualified Code(s): I10 - Essential ( primary) hypertension - Discharge Information *PRESCRIPTION DRUG MONITORING PROGRAM REVIEWED*: Not Applicable *COPY OF PRESCRIPTION DRUG MONITORING REPORT IN PATIENT CELIA: Not Applicable Forms: ED Department Discharge, Interfacility Transfer EMTALA Sepsis Event Note - Focused Exam Vital Signs: Vital Signs Temp Temp Pulse Pulse Resp BP Pulse Ox 03/06/20 09:06 112 H 20 138/68 96 03/06/20 08:48 114 H 25 H 106/72 96 03/06/20 08:32 37.8 C 03/06/20 08:20 117 H 20 115/70 95 03/06/20 08:10 116 H 25 H 143/67 H 96 03/06/20 07:54 115 H 26 H 113/79 97 03/06/20 07:53 03/06/20 07:38 116 H 21 H 121/76 92 L 03/06/20 07:22 120 H 22 H 123/66 93 L 03/06/20 07:14 39.2 C H 122 H 24 H 122/71 93 L 03/06/20 06:35 137/88 03/06/20 06:29 39.6 C H 125 H 24 H 140/92 H 93 L Pulse Ox 03/06/20 09:06 03/06/20 08:48 03/06/20 08:32 03/06/20 08:20 03/06/20 08:10 03/06/20 07:54 03/06/20 07:53 97 03/06/20 07:38 03/06/20 07:22 03/06/20 07:14 03/06/20 06:35 03/06/20 06:29 Date Exam was Performed: 03/06/20 Time Exam was Performed: : - Problem List & Annotations (1) UTI (urinary tract infection) SNOMED Code(s): 37955613 Code(s): N39.0 - URINARY TRACT INFECTION, SITE NOT SPECIFIED Status: Acute Priority: High Onset Date: ~03/06/20 Annotation/Comment:: Suspicions of urosepsis with stable vital signs and clinical exam during our care and prior to transfer. Note significant fever, however no leukocytosis with normal lactic acid level. Blood Cultures 2 were collected. Subsequent immediate administration of IV Levaquin and IV Rocephin. Telephone consultation at 08:[address] Pickard, emergency room physician at [facility], who does accept the patient for further evaluation and treatment, with no further treatment recommendations given. Ambulance transfer with loan reviewer accompaniment. Qualifiers: Urinary tract infection type: acute cystitis Hematuria presence: without hematuria Qualified Code(s): N30.00 - Acute cystitis without hematuria (2) Confusion SNOMED Code(s): 695537781 Code(s): R41.0 - DISORIENTATION, UNSPECIFIED Status: Acute Priority: High Onset Date: ~03/05/20 Annotation/Comment:: Significant confusion possibly secondary to urosepsis. Note negative CT of the head. Consider further workup, including MRI of the brain, spinal fluid assessment depending on her clinical course. (3) Elevated d-dimer SNOMED Code(s): 462482888 Code(s): R79.89 - OTHER SPECIFIED ABNORMAL FINDINGS OF BLOOD CHEMISTRY Status: Acute Priority: High Onset Date: 03/06/20 Annotation/Comment:: Secondary to dehydration we were not able to get adequate IV access to perform a CTA of the chest using PE protocol. Secondary to patient's EKG changes, high fever, exposure risk, etc. patient was screened for COVID-19 day with [facility]. Consider additional rapid screen by accepting providers. Contact and droplet precautions were initiated during her care in this facility. (4) Dehydration SNOMED Code(s): 73337304 Code(s): E86.0 - DEHYDRATION Status: Acute Priority: High Onset Date: 03/06/20 Annotation/Comment:: Significant dehydration by clinical exam. 1 L IV bolus of normal saline was given in the emergency room with continuation of aggressive IV hydration during transfer. (5) PVCs (premature ventricular contractions) SNOMED Code(s): 77946705 Code(s): I49.3 - VENTRICULAR PREMATURE DEPOLARIZATION Status: Acute Priority: Medium Onset Date: 03/06/20 Annotation/Comment:: Occasional (6) Sinus tachycardia SNOMED Code(s): 91185442 Code(s): R00.0 - TACHYCARDIA, UNSPECIFIED Status: Acute Priority: High Onset Date: 03/06/20 Annotation/Comment:: Sinus tachycardia somewhat improved with Tylenol and IV fluids as above. Note EKG changes with no chest pain or anginal type symptoms. IV heparin was initiated as above. Note previous history of PSVT and sinus tachycardia, which has been a problem in recent weeks by her 's history as above. Further cardiology consultation and/or workup depending on her clinical course. Mild BNP elevation but no significant evidence of clinical CHF with otherwise normal cardiac enzymes. Possibility of COVID-19 as above. (7) Hypertension SNOMED Code(s): 11427085 Code(s): I10 - ESSENTIAL (PRIMARY) HYPERTENSION Status: Chronic Priority : Medium Annotation/Comment:: Blood Pressures stable during her emergency room care Qualifiers: Hypertension type: essential hypertension Qualified Code(s): I10 - Essential (primary) hypertension (8) Peptic reflux disease SNOMED Code(s): 472641271 Code(s): K21.9 - GASTRO-ESOPHAGEAL REFLUX DISEASE WITHOUT ESOPHAGITIS Status: Chronic Priority: Medium Annotation/Comment:: Stable by history with no evidence of other abdominal pain, GI bleed, etc.. High-dose IV Pepcid was given in the emergency room as GI prophylaxis especially in light of IV heparin therapy. - Problem List Review Problem List Initiated/Reviewed/Updated: Yes - My Orders Last 24 Hours: My Active Orders 03/06/20 06:29 Cardiac Monitoring [RC] CONTINUOUS Oxygen Therapy, ED [RC] PRN Pulse Oximetry [RC] CONTINUOUS Up With Assistance [RC] ASDIRECTED Chest 1V Frontal [CR] Stat CULTURE SPUTUM + SMEAR [RM] Urgent Sodium Chloride 0.9% [Saline Flush] 10 ml FLUSH ASDIRECTED PRN Blood Culture x2 Reflex Set [OM.PC] Stat Obtain Past Medical Record [OM.PC] Stat Peripheral IV Insertion Adult [OM.PC] Stat Resuscitation Status Routine 03/06/20 06:30 EKG Documentation Completion [RC] ASDIRECTED Peripheral IV Care [RC] . DIRECTED 03/06/20 06:35 CULTURE URINE [RM] Routine 03/06/20 06:40 CORONAVIRUS, COVID19 IGG AB, S [REF] Urgent CULTURE STREP A CONFIRMATION [RM] Stat STREP SCRN A RAPID W CULT CONF [RM] Stat 03/06/20 06:50 CK W CKMB [CHEM] Stat COMPREHENSIVE METABOLIC PN,CMP [CHEM] Stat CULTURE BLOOD [BC] Stat MAGNESIUM [CHEM] Stat PRO B-TYPE NATRIUR PEPT,BNPPRO [CHEM] Stat TROPONIN I [CHEM] Stat TSH ULTRASENSITIVE [CHEM] Stat 03/06/20 06:53 Head wo Cont [CT] Stat 03/06/20 07:05 CULTURE BLOOD [BC] Stat 03/06/20 08:00 Heparin Sodium/0.45% NaCl [Heparin 25,000 Units in 1/2 NS 500 ML] 500 ml IV TITRATE 03/06/20 08:13 Peripheral IV Insertion Adult [OM.PC] Routine 03/06/20 08:14 Sodium Chloride 0.9% [Saline Flush] 10 ml FLUSH ASDIRECTED PRN 03/06/20 08:15 Peripheral IV Care [RC] . DIRECTED Sodium Chloride 0.9% [Normal Saline] 1,000 ml IV ASDIRECTED 03/06/20 Breakfast Nothing Per Oral Diet [DIET] - Assessment/Plan Last 24 Hours: My Active Orders 03/06/20 06:29 Cardiac Monitoring [RC] CONTINUOUS Oxygen Therapy, ED [RC] PRN Pulse Oximetry [RC] CONTINUOUS Up With Assistance [RC] ASDIRECTED Chest 1V Frontal [CR] Stat CULTURE SPUTUM + SMEAR [RM] Urgent Sodium Chloride 0.9% [Saline Flush] 10 ml FLUSH ASDIRECTED PRN Blood Culture x2 Reflex Set [OM.PC] Stat Obtain Past Medical Record [OM.PC] Stat Peripheral IV Insertion Adult [OM.PC] Stat Resuscitation Status Routine 03/06/20 06:30 EKG Documentation Completion [RC] ASDIRECTED Peripheral IV Care [RC] . DIRECTED 03/06/20 06:35 CULTURE URINE [RM] Routine 03/06/20 06:40 CORONAVIRUS, COVID19 IGG AB, S [REF] Urgent CULTURE STREP A CONFIRMATION [RM] Stat STREP SCRN A RAPID W CULT CONF [RM] Stat 03/06/20 06:50 CK W CKMB [CHEM] Stat COMPREHENSIVE METABOLIC PN,CMP [CHEM] Stat CULTURE BLOOD [BC] Stat MAGNESIUM [CHEM] Stat PRO B-TYPE NATRIUR PEPT,BNPPRO [CHEM] Stat TROPONIN I [CHEM] Stat TSH ULTRASENSITIVE [CHEM] Stat 03/06/20 06:53 Head wo Cont [CT] Stat 03/06/20 07:05 CULTURE BLOOD [BC] Stat 03/06/20 08:00 Heparin Sodium/0.45% NaCl [Heparin 25,000 Units in 1/2 NS 500 ML] 500 ml IV TITRATE 03/06/20 08:13 Peripheral IV Insertion Adult [OM.PC] Routine 03/06/20 08:14 Sodium Chloride 0.9% [Saline Flush] 10 ml FLUSH ASDIRECTED PRN 03/06/20 08:15 Peripheral IV Care [RC] . DIRECTED Sodium Chloride 0.9% [Normal Saline] 1,000 ml IV ASDIRECTED 03/06/20 Breakfast Nothing Per Oral Diet [DIET] Assessment:: As above Plan: As above. Extensive precautions were given to the patient and her by telephone, who are in agreement with the treatment plan. Ambulance transfer with loan reviewer accompaniment.
[2020-03-06] MEDS ORDERED: Sodium Chloride 0.9% 1,000 ML IV ONE (06:44)
[2020-03-06] MEDS: Sodium Chloride 0.9% 10 ML Syringe FLUSH PRN ×2 (07:39→08:45)
[2020-03-06 07:46] LABS: PTT,PARTIAL THROMBOPLSTIN TIME 21.2 SEC (24.5-32.8)
[2020-03-06] MEDS ORDERED: Heparin Sodium 5,000 Units/ML Vial IVPUSH ONE ×2 (07:58→08:04)
[2020-03-06] MEDS ORDERED: Heparin Sodium/0.45% NaCl 500 ML IV SCH (08:00)
[2020-03-06] MEDS ORDERED: Sodium Chloride 0.9% 10 ML Syringe FLUSH PRN (08:14)
[2020-03-06] MEDS ORDERED: Sodium Chloride 0.9% 1,000 ML IV SCH (08:15)
[2020-03-06] MEDS ORDERED: Famotidine 20 MG/2 ML SDV IVPUSH ONE (08:41)
[2020-03-06 09:07] VITALS: BP 138/68; PULSE 112
== END 2020-03-06 09:20 ==
LOC: LL.ED 06:04
DX: I49.3 Ventricular premature depolarization (principal); R41.0 Disorientation, unspecified; E86.0 Dehydration; R00.0 Tachycardia, unspecified; R79.1 Abnormal coagulation profile; N30.00 Acute cystitis without hematuria; K27.9 Peptic ulcer, site unspecified, unspecified as acute or chronic, without hemorrhage or perforation; K21.9 Gastro-esophageal reflux disease without esophagitis; I12.9 Hypertensive chronic kidney disease with stage 1 through stage 4 chronic kidney disease, or unspecified chronic kidney disease; N18.9 Chronic kidney disease, unspecified; Z88.6 Allergy status to analgesic agent; Z88.5 Allergy status to narcotic agent; Z88.8 Allergy status to other drugs, medicaments and biological substances; Z91.018 Allergy to other foods; Z79.899 Other long term (current) drug therapy
CPT/HCPCS: 36415; 70450; 71045; 80053; 81001; 82550; 82553; 83605; 83735; 83880; 84443; 84484; 85025; 85379; 85610; 85730; 87040; 87081; 87086; 87088; 87186; 87430; 93005; 96365; 96367; 96375; 99285; A9270; J0696; J1644; J1956; J3490; J7030; J7050; 86769